=== PATIENT | female | born 1975 | race Caucasian/White ===

== ENCOUNTER 2017-09-14 17:59 | Emergency (ER) | payer OTHER ==
[2017-09-14 18:09] VITALS: TEMP 95
[2017-09-14] MEDS ORDERED: LORazepam 2 MG/ML INJ IV STA (18:30)
--- NOTE | 2017-09-14 18:41 | ED ---
General Adult HPI - General Chief complaint: Recheck/Abnormal Lab/Rx Stated complaint: involuntary movement, difficulty seeing Source: patient, EMS Mode of arrival: wheelchair Limitations: no limitations - History of Present Illness Initial comments: Patient is a 42-year-old female that presents for rhythmic type convulsions on her upper body. Patient states that she has a history of bipolar disorder and that approximates 78 years ago the same thing happened and she was seen at [facility]. They told her that this was nonepileptic seizures secondary to PTSD. She stopped all her medications which included Lamictal Lexapro and the symptoms went away. She states that the symptoms today started 1 hour prior to presentation in that she denies any pain including chest pain, shortness of breath, abdominal pain and also denies nausea/vomiting/diarrhea. She also denies any neurologic symptoms including headache, blurry vision or numbness or weakness. - Related Data Home Medications Medication Instructions Recorded Confirmed Acetaminophen/Diphenhydramine 1 tab PO HS PRN 09/14/17 09/14/17 [Tylenol PM 500-25mg] Allergies Allergy/AdvReac Type Severity Reaction Status Date / Time No Known Allergies Allergy Verified 09/14/17 18:59 Review of Systems ROS Statement: Those systems with pertinent positive or pertinent negative responses have been documented in the HPI. Constitutional: Negative for chills, fatigue and fever. HENT: Negative for congestion. Respiratory: Negative for chest tightness, shortness of breath and wheezing. Cardiovascular: Negative for chest pain and palpitations. Gastrointestinal: Negative for abdominal pain. Negative for abdominal distention , diarrhea, nausea and vomiting. Genitourinary: Negative for dysuria. Musculoskeletal: Negative for back pain, neck pain and neck stiffness. Skin: Negative for color change. Neurological: Negative for dizziness, speech difficulty, weakness and light- headedness. Positive for rhythmic type movements of her upper extremities and torso Psychiatric/Behavioral: Negative for agitation and confusion. The patient is not nervous/anxious. ROS Other: All systems not noted in ROS Statement are negative. Past Medical History Past Medical History: No Reported History History of Any Multi-Drug Resistant Organisms: None Reported Past Surgical History: Section Additional Past Surgical History / Comment(s): LAP BAND-2009 Past Anesthesia/Blood Transfusion Reactions: No Reported Reaction Past Psychological History: Bipolar Smoking Status: Never smoker Past Alcohol Use History: None Reported Past Drug Use History: None Reported - Past Family History Mother Family Medical History: Hypertension Brother(s) Family Medical History: Cancer, Diabetes Mellitus Additional Family Medical History / Comment(s): HEART DISEASE General Exam - General Exam Comments Initial Comments: Physical Exam Constitutional: Pt is oriented to person, place, and time. Pt appears well- developed and well-nourished. No distress. HENT: Head: Normocephalic and atraumatic. Eyes: EOM are normal. Neck: Normal range of motion. Neck supple. Cardiovascular: Normal rate, regular rhythm, S1 normal, S2 normal and normal heart sounds. Exam reveals no gallop and no friction rub. No murmur heard. Pulmonary/Chest: Effort normal and breath sounds normal. No tachypnea and no bradypnea. No respiratory distress. No wheezes or rales noted. Abdominal: Soft. Bowel sounds are normal. Pt exhibits no shifting dullness, no distension, no pulsatile liver, no fluid wave, no abdominal bruit and no ascites. There is no tenderness. There is no rigidity, no rebound, no guarding, no tenderness at McBurney's point and negative Ramsey's sign. Musculoskeletal: Normal range of motion. Neurological: Pt is alert and oriented to person, place, and time. No cranial nerve deficit. Patient has rhythmic flexion and extension type movements of her abdomen, torso and head and neck. Patient is alert and oriented and able to discuss fully her symptoms Skin: Skin is warm and dry. No rash noted. Pt is not diaphoretic. No erythema. No pallor. Psychiatric: Pt has a normal mood and affect. Pt behavior is normal. Thought content normal. Limitations: no limitations Course Vital Signs 09/14/17 09/14/17 18:04 19:10 Temperature 95 F L Pulse Rate 78 76 Respiratory 20 16 Rate Blood Pressure 131/85 O2 Sat by Pulse 97 96 Oximetry EKG Findings - EKG Comments: EKG Findings:: EKG showed normal sinus rhythm with a heart rate 72, LA interval 150, QRS 88, QTC 435 Medical Decision Making - Medical Decision Making Electrolytes showed no evidence of significant derangements and urinalysis was also negative for infection or . Patient was given 2 mg of Ativan and the symptoms subsided within 10-15 minutes and observed in the emergency department for approximately 2 hours and did not have any further symptoms..It was explained that while there does not appear to be an emergent process, the etiology of the symptoms are still unclear but possibly related to prior diagnosed epilepsy and may need further workup as an outpatient if symptoms continue. Explained all labs and diagnostic test results and that we will discharge the patient home and patient is to follow up with PCP in 1-2 days and return to the ED if symptoms worsen. Pt is agreeable to plan. - Lab Data Result diagrams: 09/14/17 18:30 09/14/17 18:30 Lab Results 09/14/17 09/14/17 09/14/17 Range/Units 18:30 18:30 19:10 WBC 11.8 H (3.8-10.6) k/uL RBC 4.38 (3.80-5.40) m/uL Hgb 13.3 (11.4-16.0) gm/dL Hct 41.0 (34.0-46.0) % MCV 93.6 (80.0-100.0) fL MCH 30.5 (25.0-35.0) pg MCHC 32.5 (31.0-37.0) g/dL RDW 12.4 (11.5-15.5) % Plt Count 389 (150-450) k/uL Neutrophils % 60 % Lymphocytes % 34 % Monocytes % 4 % Eosinophils % 1 % Basophils % 1 % Neutrophils # 7.1 (1.3-7.7) k/uL Lymphocytes # 3.9 (1.0-4.8) k/uL Monocytes # 0.4 (0-1.0) k/uL Eosinophils # 0.2 (0-0.7) k/uL Basophils # 0.1 (0-0.2) k/uL Sodium 143 (137-145) mmol/L Potassium 4.4 (3.5-5.1) mmol/L Chloride 106 (98-107) mmol/L Carbon Dioxide 23 (22-30) mmol/L Anion Gap 14 mmol/L BUN 11 (7-17) mg/dL Creatinine 0.80 (0.52-1.04) mg/dL Est GFR (MDRD) Af Amer >60 (>60 ml/min/1.73 sqM) Est GFR (MDRD) Non-Af >60 (>60 ml/min/1.73 sqM) Glucose 84 (74-99) mg/dL Plasma Lactic Acid Naeem 0.9 (0.7-2.0) mmol/L Calcium 9.6 (8.4-10.2) mg/dL Magnesium 1.9 (1.6-2.3) mg/dL Total Bilirubin 0.5 (0.2-1.3) mg/dL AST 22 (14-36) U/L ALT 29 (9-52) U/L Alkaline Phosphatase 50 (38-126) U/L Creatine Kinase 72 (30-135) U/L Total Protein 7.4 (6.3-8.2) g/dL Albumin 4.2 (3.5-5.0) g/dL Urine Color Urine Appearance (Clear) Urine pH (5.0-8.0) Ur Specific [place] (1.001-1.035) Urine Protein (Negative) Urine Glucose (UA) (Negative) Urine Ketones (Negative) Urine Blood (Negative) Urine Nitrite (Negative) Urine Bilirubin (Negative) Urine Urobilinogen (<2.0) mg/dL Ur Leukocyte Esterase (Negative) Urine RBC (0-5) /hpf Urine WBC (0-5) /hpf Hyaline Casts (0-2) /lpf Granular Casts (0) /lpf Urine Mucus (None) /hpf Urine HCG, Qual (Not Detectd) Urine Opiates Screen (NotDetected) Ur Oxycodone Screen (NotDetected) Urine Methadone Screen (NotDetected) Ur Propoxyphene Screen (NotDetected) Ur Barbiturates Screen (NotDetected) U Tricyclic Antidepress (NotDetected) Ur Phencyclidine Scrn (NotDetected) Ur Amphetamines Screen (NotDetected) U Methamphetamines Scrn (NotDetected) U Benzodiazepines Scrn (NotDetected) Urine Cocaine Screen (NotDetected) U Marijuana (THC) Screen (NotDetected) 09/14/17 09/14/17 Range/Units 20:38 20:38 WBC (3.8-10.6) k/uL RBC (3.80-5.40) m/uL Hgb (11.4-16.0) gm/dL Hct (34.0-46.0) % MCV (80.0-100.0) fL MCH (25.0-35.0) pg MCHC (31.0-37.0) g/dL RDW (11.5-15.5) % Plt Count (150-450) k/uL Neutrophils % % Lymphocytes % % Monocytes % % Eosinophils % % Basophils % % Neutrophils # (1.3-7.7) k/uL Lymphocytes # (1.0-4.8) k/uL Monocytes # (0-1.0) k/uL Eosinophils # (0-0.7) k/uL Basophils # (0-0.2) k/uL Sodium (137-145) mmol/L Potassium (3.5-5.1) mmol/L Chloride (98-107) mmol/L Carbon Dioxide (22-30) mmol/L Anion Gap mmol/L BUN (7-17) mg/dL Creatinine (0.52-1.04) mg/dL Est GFR (MDRD) Af Amer (>60 ml/min/1.73 sqM) Est GFR (MDRD) Non-Af (>60 ml/min/1.73 sqM) Glucose (74-99) mg/dL Plasma Lactic Acid Naeem (0.7-2.0) mmol/L Calcium (8.4-10.2) mg/dL Magnesium (1.6-2.3) mg/dL Total Bilirubin (0.2-1.3) mg/dL AST (14-36) U/L ALT (9-52) U/L Alkaline Phosphatase (38-126) U/L Creatine Kinase (30-135) U/L Total Protein (6.3-8.2) g/dL Albumin (3.5-5.0) g/dL Urine Color Yellow Urine Appearance Clear (Clear) Urine pH 6.0 (5.0-8.0) Ur Specific [place] 1.020 (1.001-1.035) Urine Protein 2+ H (Negative) Urine Glucose (UA) Negative (Negative) Urine Ketones 3+ H (Negative) Urine Blood Small H (Negative) Urine Nitrite Negative (Negative) Urine Bilirubin Negative (Negative) Urine Urobilinogen <2.0 (<2.0) mg/dL Ur Leukocyte Esterase Negative (Negative) Urine RBC <1 (0-5) /hpf Urine WBC 1 (0-5) /hpf Hyaline Casts 14 H (0-2) /lpf Granular Casts 4 (0) /lpf Urine Mucus Occasional H (None) /hpf Urine HCG, Qual Not Detected (Not Detectd) Urine Opiates Screen Not Detected (NotDetected) Ur Oxycodone Screen Not Detected (NotDetected) Urine Methadone Screen Not Detected (NotDetected) Ur Propoxyphene Screen Not Detected (NotDetected) Ur Barbiturates Screen Not Detected (NotDetected) U Tricyclic Antidepress Not Detected (NotDetected) Ur Phencyclidine Scrn Not Detected (NotDetected) Ur Amphetamines Screen Not Detected (NotDetected) U Methamphetamines Scrn Not Detected (NotDetected) U Benzodiazepines Scrn Detected H (NotDetected) Urine Cocaine Screen Not Detected (NotDetected) U Marijuana (THC) Screen Not Detected (NotDetected) Disposition Clinical Impression: Chorea Disposition: HOME SELF-CARE Condition: Good Instructions: Epilepsy (ED) Referrals: None,Stated [Primary Care Provider] - 1-2 days Time of Disposition: 21:43
[2017-09-14 19:12] VITALS: PULSE 76; RESP 16
[2017-09-14 19:17] LABS: Basophils # (A) 0.1 k/uL (0-0.2); Basophils % (A) 1 %; Eosinophils # (A) 0.2 k/uL (0-0.7); Eosinophils % (A) 1 %; HGB 13.3 gm/dL (11.4-16.0); Lymphocytes # (A) 3.9 k/uL (1.0-4.8); Lymphocytes % (A) 34 %; MCH 30.5 pg (25.0-35.0); MCHC 32.5 g/dL (31.0-37.0); MCV 93.6 fL (80.0-100.0); Mean Platelet Volume 7.6; Monocytes # (A) 0.4 k/uL (0-1.0); Monocytes % (A) 4 %; Neutrophils # (A) 7.1 k/uL (1.3-7.7); Neutrophils % (A) 60 %; Platelet Count 389 k/uL (150-450); RBC 4.38 m/uL (3.80-5.40); RDW 12.4 % (11.5-15.5); WBC 11.8 k/uL (3.8-10.6)
[2017-09-14 19:37] LABS: ALT 29 U/L (9-52); AST 22 U/L (14-36); Albumin 4.2 g/dL (3.5-5.0); Alkaline Phosphatase 50 U/L (38-126); Anion Gap 14 mmol/L; Blood Urea Nitrogen 11 mg/dL (7-17); Calcium 9.6 mg/dL (8.4-10.2); Carbon Dioxide 23 mmol/L (22-30); Chloride 106 mmol/L (98-107); Creatine Kinase 72 U/L (30-135); Glucose 84 mg/dL (74-99); Magnesium 1.9 mg/dL (1.6-2.3); Potassium 4.4 mmol/L (3.5-5.1); Sodium 143 mmol/L (137-145); Total Bilirubin 0.5 mg/dL (0.2-1.3); Total Protein 7.4 g/dL (6.3-8.2)
[2017-09-14 20:58] LABS: Appearance,Urine Clear (Clear); Bilirubin,Urine Negative (Negative); Blood,Urine Small (Negative); Color,Urine Yellow; Glucose,Urine (UA) Negative (Negative); Granular Casts,Urine 4 /lpf (0); Hyaline Casts,Urine 14 /lpf (0-2); Ketones,Urine 3+ (Negative); Leukocyte Esterase,Urine Negative (Negative); Mucus,Urine Occasional /hpf; Nitrite,Urine Negative (Negative); Protein,Urine 2+ (Negative); RBC,Urine <1 /hpf (0-5); Urobilinogen,Urine <2.0 mg/dL (<2.0); WBC,Urine 1 /hpf (0-5)
[2017-09-14 21:04] LABS: Amphetamine Screen,Urine Not Detected (NotDetected); Barbiturate Screen,Urine Not Detected (NotDetected); Benzodiazepines Screen,Urine Detected (NotDetected); Cocaine Screen,Urine Not Detected (NotDetected); Methadone Screen, Urine Not Detected (NotDetected); Opiate Screen,Urine Not Detected (NotDetected); Oxycodone Screen, Urine Not Detected (NotDetected); Phencyclidine Screen,Urine Not Detected (NotDetected); Tricyclic Antidepressant,Urine Not Detected (NotDetected); Urn Cannabinoid Scrn Not Detected (NotDetected)
[2017-09-14 22:06] VITALS: BP 139/95
== END 2017-09-14 22:05 | disposition home or self-care (01) ==
LOC: EC 17:59
DX: G25.5 Other chorea (principal)
CPT/HCPCS: 36415; 93005; 80053; 82550; 83605; 83735; 85025; 81001; 81025; 80306; 99284; 96374; J2060

== ENCOUNTER → 2018-03-25 | Outpatient (CLI) | payer OTHER ==
[2018-03-25 14:33] VITALS: BP 143/102; PULSE 80; TEMP 98.2; BMI 30.1
--- NOTE | 2018-03-25 23:07 | P.BASOAP ---
Subjective Progress Note Date: 03/25/18 Principal diagnosis: Morbid obesity Patient here to discuss band removal. Patient states she has episodes of frequent vomiting. She thought that her band was emptied at this time. Mild discomfort at the port site. She recently has lost 50 pounds but that was on a ketone diet. The most weight she has lost with her lap band was approximately 30 pounds. She is not interested in conversion. Only mild heartburn symptoms. Objective - Vital Signs Vital signs: Vital Signs Temp 98.2 F 03/25/18 14:30 Pulse 80 03/25/18 14:30 Resp BP 143/102 03/25/18 14:30 Pulse Ox Intake & Output 03/25/18 03/25/18 03/26/18 06:59 18:59 06:59 Weight 79.651 kg - Exam Abdomen: Soft, nontender, nondistended Assessment/Plan (1) Morbid obesity Narrative/Plan: Options discussed with the patient. Will loosen the patient's lap band at this time. Will tentatively plan band removal in the near future. The patient's lap band port was palpated. The site was aseptically prepped. The Tate needle was advanced into the port. Aspiration took place. A total of 2 ml of fluid was evacuated. Pressure was held and a sterile dressing was applied. Plan: Date: 03/25/18 Initial Weight: Initial BMI: Current Weight: 79.651 kg Current BMI: 30.1 Type of Surgery: Total Volume in Band: 1 Previous Volume: Volume Removed: 2 Volume Added: Band Size:
== END | disposition home or self-care (01) ==
LOC: BARWHC3 13:33
PROVIDERS: ATTEND Surgery
DX: E66.01 Morbid (severe) obesity due to excess calories (principal); Z68.30 Body mass index [BMI] 30.0-30.9, adult
CPT/HCPCS: 99212

== ENCOUNTER 2018-04-30 06:51 | Day surgery (SDC) | payer OTHER ==
[2018-04-24 09:19] VITALS: BMI 27.2
--- NOTE | 2018-04-29 17:31 | P.GSHP ---
History of Present Illness H&P Date: 04/29/18 Chief Complaint: Band intolerance Patient here today for laparoscopic lap band removal. Patient is had problems with frequent vomiting and discomfort at the lap band port site. Patient has mild reflux symptoms as well. At the time of her recent office visit her band was emptied of 2 mL of fluid. Past Medical History Past Medical History: No Reported History Additional Past Medical History / Comment(s): STATES HX OF 2 EPISODES OF INVOLUNTARY MOVEMENTS ALL OVER (2010 & 2017)- TOLD POSSIBLE CHOREA., HAS LAP BAND, EPISODES OF VOMITING. History of Any Multi-Drug Resistant Organisms: None Reported Past Surgical History: Section Additional Past Surgical History / Comment(s): LAP BAND-2008 Past Anesthesia/Blood Transfusion Reactions: No Reported Reaction Past Psychological History: Bipolar Additional Psychological History / Comment(s): NO MEDS Smoking Status: Never smoker Past Alcohol Use History: None Reported Past Drug Use History: None Reported - Past Family History Mother Family Medical History: Hypertension Brother(s) Family Medical History: Cancer, Diabetes Mellitus Additional Family Medical History / Comment(s): HEART DISEASE Father Family Medical History: Cancer Additional Family Medical History / Comment(s): SKIN CANCER Medications and Allergies Home Medications Medication Instructions Recorded Confirmed Type Acetaminophen/Diphenhydramine 1 tab PO HS PRN 04/24/18 04/24/18 History [Tylenol PM 500-25mg] Allergies Allergy/AdvReac Type Severity Reaction Status Date / Time No Known Allergies Allergy Verified 04/24/18 09:07 Surgical - Exam Physical exam: General: Well-developed, well-nourished HEENT: Normocephalic, sclerae nonicteric Abdomen: Mild tenderness at port site, nondistended Extremities: No edema Neuro: Alert and oriented Assessment and Plan (1) Morbid obesity Narrative/Plan: Will proceed with laparoscopic lap band removal. Risks of bleeding, infection, persistent vomiting, reflux, weight gain were discussed. She understands and wishes to proceed. Status: Acute Code(s): E66.01 - MORBID (SEVERE) OBESITY DUE TO EXCESS CALORIES SNOMED Code(s): 681258442
[~2018-04-30 06:51] MED LIST: DEXAMETHASONE SOD PHOSPHATE 10 MG/ML 1 ML VIAL IV ONE; HEPARIN SODIUM,PORCINE 5,000 UNIT/ML 1 ML VIAL SQ ONE; LACTATED RINGERS 1,000 ML IV SCH; MORPHINE SULFATE 2 MG/ML SYRINGE IV PRN; ONDANSETRON 4 MG/2 ML VIAL IVP ONE; ONDANSETRON 4 MG/2 ML VIAL IVP PRN; ceFAZolin IN SWFI 2 GM/20 ML SYRINGE IVP ONE
[2018-04-30] MEDS ORDERED: LIDOCAINE 1% 20 ML VIAL (10MG/ML) FOR IV START INTRADERMA ONE (07:39)
[2018-04-30] MEDS ORDERED: GLYCOPYRROLATE 0.2 MG/ML 2 ML VIAL ONE (08:03)
[2018-04-30] MEDS ORDERED: BUPIVACAIN-EPI 0.25%-1:200,000 30 ML VIAL SQ ONE ×2 (08:03)
[2018-04-30] MEDS ORDERED: PROPOFOL 10 MG/ML 20 ML VIAL IV ONE (08:03)
[2018-04-30] MEDS ORDERED: fentaNYL (PF) 50 MCG/ML 2 ML AMP ONE (08:03)
[2018-04-30] MEDS ORDERED: NEOSTIGMINE 1 MG/ML 10 ML VIAL ONE (08:03)
[2018-04-30] MEDS ORDERED: ROCURONIUM BROMIDE 10 MG/ML 10 ML VIAL IV ONE (08:03)
[2018-04-30] MEDS ORDERED: LIDOCAINE 1% INJ 10MG/ML (20 ML MDV) ONE (08:03)
[2018-04-30] MEDS ORDERED: MIDAZOLAM 2 MG/2 ML VIAL ONE (08:03)
[2018-04-30] MEDS ORDERED: KETOROLAC 30 MG/ML 1 ML VIAL ONE (08:03)
[2018-04-30] MEDS ORDERED: NALOXONE 0.4 MG/ML 1 ML VIAL IV PRN (09:12)
[2018-04-30] MEDS ORDERED: HYDROcodone/APAP 5-325MG 1 EACH TAB PO PRN (09:12)
--- NOTE | 2018-04-30 09:14 | P.OP ---
Date of Procedure: 04/30/18 Procedure(s) Performed: PREOPERATIVE DIAGNOSIS: Band intolerance/abdominal pain POSTOPERATIVE DIAGNOSIS: Same PROCEDURE: Laparoscopic lap band removal SURGEON: Deborah EBL: Minimal ANESTHESIA: General COMPLICATIONS: None OPERATIVE PROCEDURE: The patient was brought and placed on the operating room table in the supine position. The patient was placed under general anesthesia at that time. The patient was then placed in lithotomy. The abdomen was prepped and draped in the usual sterile fashion. The previous port incision was localized and then incised using a scalpel. The port was easily excised using electrocautery. Entrance into the perineal cavity occurred using a 5 mm optical trocar through the old trocar entrance site. Insufflation took place to 15 mmHg. A right subxiphoid 5 mm trocar was placed. This was then removed and the medium Alejandra hook was used to elevate the left lobe of the liver anteriorly. An additional 5 mm trocar was placed under direct visualization in the left lateral upper quadrant. The original 5 mm trocar was switched to a 15 mm trocar. A additional 5 mm trocar was placed in the right upper quadrant under direct dilatation. There were adhesions to the band in the buckle that were lysed using electrocautery. The band was then removed from its retrogastric location in one piece without difficulty. This was then removed from the 15 mm trocar site without difficulty. The stomach itself was inspected and revealed no evidence of erosion or prolapse. The trochars were removed. The fascia at the 15 mm site was closed using a Ladarius-Alondra 0 Vicryl stitch. The subcutaneous tissues at the port site was closed using a 3- 0 Vicryl suture. The skin at all 4 incision sites were closed using 4-0 Monocryl sutures. Steri-Strips and sterile dressings were then applied. DISPOSITION: Stable to recovery room
[2018-04-30] MEDS: HYDROmorphone 0.5 MG/0.5 ML SYRINGE IVP PRN ×4 (09:23→10:06)
[2018-04-30] MEDS ORDERED: diphenhydrAMINE 50 MG/ML 1 ML VIAL IVP ONE (09:24)
[2018-04-30 09:32] VITALS: TEMP 97.5
[2018-04-30] MEDS: fentaNYL (PF) 50 MCG/ML 2 ML AMP IVP ONE ×2 (09:38→09:43)
[2018-04-30 09:40] VITALS: RESP 16
[2018-04-30] MEDS ORDERED: SODIUM CHLORIDE 0.9% 1,000 ML IV ONE (09:50)
[2018-04-30 11:03] VITALS: BP 157/80; PULSE 54
== END 2018-04-30 11:36 | disposition home or self-care (01) ==
LOC: OR 06:51
PROVIDERS: ATTEND Surgery
DX: T85.9XXA Unspecified complication of internal prosthetic device, implant and graft, initial encounter (principal); E66.01 Morbid (severe) obesity due to excess calories; Z68.27 Body mass index [BMI] 27.0-27.9, adult
CPT/HCPCS: 81025; 43774; J2250; J1200; J1644; J1100; J2710; J2405; J2001; J3010; J1885; J2704; J1170; J0690

== ENCOUNTER → 2018-12-10 | Outpatient (CLI) | payer BC, OTHER ==
--- NOTE | 2018-12-10 13:01 | EST ---
EXERCISE STRESS AGE: 43 SEX: F HT: 67" WT: 170 PROTOCOL: Kedar Stress Test STAGE: 3 DURATION OF EXERCISE: 9:00 HEART RATE REST: 80 BLOOD PRESSURE REST: 135/88 MAXIMUM HEART RATE ACHIEVED: 160 MAXIMUM BLOOD PRESSURE: 180/90 85% MPHR: 151 100% MPHR: 171 METS: 10.1 INDICATIONS: Chest pain. CLINICAL INFORMATION: Patient was exercised for a total period of 9 minutes a peak heart rate of 160 was achieved. Maximum blood pressure 180/90 mmHg was noted. Resting EKG shows normal sinus rhythm with normal [place] interval and QRS duration and normal ST-T waves. During exercise. J-point depression with upsloping ST segments were noted. Patient did not complain of any chest pain during the test. FINAL IMPRESSION: 1. This exercise test is not suggestive of ischemia. 2. Patient's exercise tolerance is normal. 3. No dysrhythmias are noted. MMODL / IJN: [id number] /
== END | disposition home or self-care (01) ==
LOC: RADNMMAIN 08:42
PROVIDERS: ATTEND Internal Medicine
DX: R07.9 Chest pain, unspecified (principal)
CPT/HCPCS: 93017

== ENCOUNTER 2019-09-02 15:36 | Emergency (ER) | payer BC, OTHER ==
[2019-09-02 15:50] VITALS: RESP 18
[2019-09-02] MEDS ORDERED: SODIUM CHLORIDE 0.9% 1,000 ML IV STA (16:22)
[2019-09-02 16:33] LABS: Glucose,Whole Blood 82 mg/dL (75-99)
[2019-09-02 16:37] LABS: Basophils # (A) 0.1 k/uL (0-0.2); Basophils % (A) 1 %; Eosinophils # (A) 0.3 k/uL (0-0.7); Eosinophils % (A) 3 %; HCT 39.2 % (34.0-46.0); HGB 13.1 gm/dL (11.4-16.0); Lymphocytes # (A) 3.1 k/uL (1.0-4.8); Lymphocytes % (A) 35 %; MCH 31.4 pg (25.0-35.0); MCHC 33.3 g/dL (31.0-37.0); MCV 94.2 fL (80.0-100.0); Mean Platelet Volume 7.6; Monocytes # (A) 0.4 k/uL (0-1.0); Monocytes % (A) 4 %; Neutrophils # (A) 4.9 k/uL (1.3-7.7); Neutrophils % (A) 56 %; Platelet Count 334 k/uL (150-450); RBC 4.16 m/uL (3.80-5.40); RDW 12.1 % (11.5-15.5); WBC 8.8 k/uL (3.8-10.6)
--- NOTE | 2019-09-02 16:40 | ED ---
Female Urogenital HPI - General Chief complaint: Vaginal Bleeding Stated complaint: Vaginal bleeding Time Seen by Provider: 09/02/19 15:59 Source: family Mode of arrival: ambulatory Limitations: no limitations - History of Present Illness Initial comments: Patient is a 44-year-old female presenting to emergency Department with complaints of abnormal vaginal bleeding for 2 weeks. Patient states she thought she started her normal cycle 2 weeks ago that her periods seem to be food server than normal. Patient states after about a week her period began to be heavier but is now bright red blood. Patient states she has been wearing a tampon and a pad and still having to change every few hours. Patient also admits to emotional changes the last 2 months that she has been seeing Dr. Vivas for. She did started bipolar medication 2 months ago, no other changes in dosing. She denies suicidal or homicidal thoughts today. Patient denies any recent fever, chills, chest pain, short of breath. She does admit to mild nausea and lower abdominalpain as well as some tingling in her nose and hands. She is also complaining of a headache and lightheadedness that started today. Patient admits to history of LAP-BAND as well as lap band removal, one with a fibroid removal, no other abdominal surgeries. Denies history of heart disease. She has no other complaints at this time. Upon arrival to the ER, her vital signs are stable. Last Menstrual Period: 08/26/19 - Related Data Home Medications Medication Instructions Recorded Confirmed Acetaminophen/Diphenhydramine 1 tab PO HS PRN 04/24/18 04/30/18 [Tylenol PM 500-25mg] Previous Rx's Medication Instructions Recorded Hydrocodone/Acetaminophen [[place] 1 - 2 each PO Q4HR PRN #10 tab 04/30/18 5-325] Allergies Allergy/AdvReac Type Severity Reaction Status Date / Time No Known Allergies Allergy Verified 09/02/19 15:50 Review of Systems ROS Statement: Those systems with pertinent positive or pertinent negative responses have been documented in the HPI. ROS Other: All systems not noted in ROS Statement are negative. Past Medical History Past Medical History: No Reported History Additional Past Medical History / Comment(s): STATES HX OF 2 EPISODES OF INVOLUNTARY MOVEMENTS ALL OVER (2010 & 2018)- TOLD POSSIBLE CHOREA., HAS LAP BAND, EPISODES OF VOMITING. History of Any Multi-Drug Resistant Organisms: None Reported Past Surgical History: Bariatric Surgery, Section Additional Past Surgical History / Comment(s): LAP BAND-2009 Past Anesthesia/Blood Transfusion Reactions: No Reported Reaction Past Psychological History: Bipolar Smoking Status: Never smoker Past Alcohol Use History: None Reported Past Drug Use History: None Reported - Past Family History Mother Family Medical History: Hypertension Brother(s) Family Medical History: Cancer, Diabetes Mellitus Additional Family Medical History / Comment(s): HEART DISEASE Father Family Medical History: Cancer Additional Family Medical History / Comment(s): SKIN CANCER General Exam - General Exam Comments Initial Comments: GENERAL: Well-appearing, well-nourished and in no acute distress. HEAD: Atraumatic, normocephalic. EYES: Pupils equal round and reactive to light, extraocular movements intact, sclera anicteric, conjunctiva are normal. ENT: TMs normal, nares patent, oropharynx clear without exudates. Moist mucous membranes. NECK: Normal range of motion, supple without lymphadenopathy or JVD. LUNGS: Breath sounds clear to auscultation bilaterally and equal. No wheezes rales or rhonchi. HEART: Regular rate and rhythm without murmurs, rubs or gallops. ABDOMEN: Soft, nontender, normoactive bowel sounds. No guarding, no rebound. No masses appreciated. : Declined. EXTREMITIES: Normal range of motion, no pitting or edema. No clubbing or cyanosis. NEUROLOGICAL: Cranial nerves II through XII grossly intact. Normal speech, normal gait. PSYCH: Normal mood, normal affect. SKIN: Warm, Dry, normal turgor, no rashes or lesions noted. Limitations: no limitations Course Vital Signs 09/02/19 09/02/19 09/02/19 15:46 16:30 17:00 Temperature 98.1 F Pulse Rate 67 79 76 Respiratory 18 18 18 Rate Blood Pressure 141/92 165/95 137/92 O2 Sat by Pulse 100 100 100 Oximetry Medical Decision Making - Medical Decision Making Patient is a 44-year-old female presenting with abnormal vaginal bleeding for 2 weeks and lower abdominal discomfort as well as lightheadedness. Vital signs are normal, EKG is normal. Lab work shows no acute abnormalities, glucose is normal. Urine shows blood, no signs of infection. Patient is not . Ultrasound shows a right ovarian cyst, no evidence of ovarian torsion. There is a small fibroid as well. No other acute findings. Patient given fluids and reports mild improvement in symptoms. I discussed these findings with the patient. Patient will follow up with her TOOL ROOM SUPERVISOR, Dr. Koenig. She will continue with Motrin as needed for pain. She is agreement with this plan of c are. Return parameters were discussed with the patient she verbalized understanding. Case discussed with Dr. Rowley. - Lab Data Result diagrams: 09/02/19 16:00 09/02/19 16:00 Lab Results 09/02/19 09/02/19 09/02/19 Range/Units 16:00 16:00 16:00 WBC 8.8 (3.8-10.6) k/uL RBC 4.16 (3.80-5.40) m/uL Hgb 13.1 (11.4-16.0) gm/dL Hct 39.2 (34.0-46.0) % MCV 94.2 (80.0-100.0) fL MCH 31.4 (25.0-35.0) pg MCHC 33.3 (31.0-37.0) g/dL RDW 12.1 (11.5-15.5) % Plt Count 334 (150-450) k/uL Neutrophils % 56 % Lymphocytes % 35 % Monocytes % 4 % Eosinophils % 3 % Basophils % 1 % Neutrophils # 4.9 (1.3-7.7) k/uL Lymphocytes # 3.1 (1.0-4.8) k/uL Monocytes # 0.4 (0-1.0) k/uL Eosinophils # 0.3 (0-0.7) k/uL Basophils # 0.1 (0-0.2) k/uL PT 9.6 (9.0-12.0) sec INR 0.9 (<1.2) APTT 22.2 (22.0-30.0) sec Sodium 140 (137-145) mmol/L Potassium 4.2 (3.5-5.1) mmol/L Chloride 105 (98-107) mmol/L Carbon Dioxide 25 (22-30) mmol/L Anion Gap 10 mmol/L BUN 17 (7-17) mg/dL Creatinine 0.65 (0.52-1.04) mg/dL Est GFR (CKD-EPI)AfAm >90 (>60 ml/min/1.73 sqM) Est GFR (CKD-EPI)NonAf >90 (>60 ml/min/1.73 sqM) Glucose 91 (74-99) mg/dL POC Glucose (mg/dL) (75-99) mg/dL POC Glu Cardiology Physician ID Calcium 9.3 (8.4-10.2) mg/dL Total Bilirubin 0.3 (0.2-1.3) mg/dL AST 31 (14-36) U/L ALT 26 (4-34) U/L Alkaline Phosphatase 63 (38-126) U/L Total Protein 7.4 (6.3-8.2) g/dL Albumin 4.2 (3.5-5.0) g/dL Urine Color Urine Appearance (Clear) Urine pH (5.0-8.0) Ur Specific [place] (1.001-1.035) Urine Protein (Negative) Urine Glucose (UA) (Negative) Urine Ketones (Negative) Urine Blood (Negative) Urine Nitrite (Negative) Urine Bilirubin (Negative) Urine Urobilinogen (<2.0) mg/dL Ur Leukocyte Esterase (Negative) Urine RBC (0-5) /hpf Urine WBC (0-5) /hpf Ur Squamous Epith Cells (0-4) /hpf Urine Bacteria (None) /hpf Urine Mucus (None) /hpf Urine HCG, Qual (Not Detectd) 09/02/19 09/02/19 09/02/19 Range/Units 16:32 18:00 18:00 WBC (3.8-10.6) k/uL RBC (3.80-5.40) m/uL Hgb (11.4-16.0) gm/dL Hct (34.0-46.0) % MCV (80.0-100.0) fL MCH (25.0-35.0) pg MCHC (31.0-37.0) g/dL RDW (11.5-15.5) % Plt Count (150-450) k/uL Neutrophils % % Lymphocytes % % Monocytes % % Eosinophils % % Basophils % % Neutrophils # (1.3-7.7) k/uL Lymphocytes # (1.0-4.8) k/uL Monocytes # (0-1.0) k/uL Eosinophils # (0-0.7) k/uL Basophils # (0-0.2) k/uL PT (9.0-12.0) sec INR (<1.2) APTT (22.0-30.0) sec Sodium (137-145) mmol/L Potassium (3.5-5.1) mmol/L Chloride (98-107) mmol/L Carbon Dioxide (22-30) mmol/L Anion Gap mmol/L BUN (7-17) mg/dL Creatinine (0.52-1.04) mg/dL Est GFR (CKD-EPI)AfAm (>60 ml/min/1.73 sqM) Est GFR (CKD-EPI)NonAf (>60 ml/min/1.73 sqM) Glucose (74-99) mg/dL POC Glucose (mg/dL) 82 (75-99) mg/dL POC Glu Cardiology Physician ID Nadia Sanabria Calcium (8.4-10.2) mg/dL Total Bilirubin (0.2-1.3) mg/dL AST (14-36) U/L ALT (4-34) U/L Alkaline Phosphatase (38-126) U/L Total Protein (6.3-8.2) g/dL Albumin (3.5-5.0) g/dL Urine Color Yellow Urine Appearance Clear (Clear) Urine pH 7.5 (5.0-8.0) Ur Specific [place] 1.017 (1.001-1.035) Urine Protein Negative (Negative) Urine Glucose (UA) Negative (Negative) Urine Ketones Negative (Negative) Urine Blood Large H (Negative) Urine Nitrite Negative (Negative) Urine Bilirubin Negative (Negative) Urine Urobilinogen <2.0 (<2.0) mg/dL Ur Leukocyte Esterase Negative (Negative) Urine RBC 34 H (0-5) /hpf Urine WBC 1 (0-5) /hpf Ur Squamous Epith Cells 5 H (0-4) /hpf Urine Bacteria Rare H (None) /hpf Urine Mucus Rare H (None) /hpf Urine HCG, Qual Not Detected (Not Detectd) - EKG Data EKG Comments: Ventricular rate 65, P a level CXXXVI, QTC 470. Normal sinus rhythm. Normal ECG. No acute ST segment changes. Disposition Clinical Impression: Dysfunctional uterine bleeding, Lightheadedness Disposition: HOME SELF-CARE Condition: Stable Instructions (If sedation given, give patient instructions): Dysmenorrhea (ED) Additional Instructions: Please return to the Emergency Department if symptoms worsen or any other concerns. Follow-up with TOOL ROOM SUPERVISOR, Dr. Koenig as discussed. Follow up with PCP as well. Is patient prescribed a controlled substance at d/c from ED?: No Referrals: Tamia Vivas MD [Primary Care Provider] - 1-2 days Richardson Koenig MD [STAFF PHYSICIAN] - 1-2 days
[2019-09-02 16:45] LABS: ALT 26 U/L (4-34); AST 31 U/L (14-36); African American GFR (CKD) >90 (>60 ml/min/1.73 sqM); Albumin 4.2 g/dL (3.5-5.0); Alkaline Phosphatase 63 U/L (38-126); Anion Gap 10 mmol/L; Blood Urea Nitrogen 17 mg/dL (7-17); Calcium 9.3 mg/dL (8.4-10.2); Carbon Dioxide 25 mmol/L (22-30); Chloride 105 mmol/L (98-107); Glucose 91 mg/dL (74-99); Non-African American GFR(CKD) >90 (>60 ml/min/1.73 sqM); Potassium 4.2 mmol/L (3.5-5.1); Sodium 140 mmol/L (137-145); Total Bilirubin 0.3 mg/dL (0.2-1.3); Total Protein 7.4 g/dL (6.3-8.2)
[2019-09-02 16:56] LABS: INR 0.9 (<1.2); Partial Thromboplastin Time 22.2 sec (22.0-30.0); Prothrombin Time 9.6 sec (9.0-12.0)
--- NOTE | 2019-09-02 17:36 | US ---
EXAMINATION TYPE: US transvaginal DATE OF EXAM: 09/02/2019 COMPARISON: NONE CLINICAL HISTORY: Abnormal vaginal bleeding. TECHNIQUE: Transvaginal (TV). Date of LMP: 08/20/19 EXAM MEASUREMENTS: Uterus: 9.2 x 4.9 x 6.8 cm Endometrial Stripe: 1.0 cm Right Ovary: 4.1 x 3.3 x 3.3 cm Left Ovary: 2.1 x 1.6 x 1.5 cm 1. Uterus: Anteverted, there appears to be a fibroid at the area of scar measuring 1.4 x 1 .3 x 1.5cm 2. Endometrium: heterogeneous, fluid within measuring 4mm 3. Right Ovary: cyst measuring 3.3 x 3.3 x 2.8cm 4. Left Ovary: wnl Spectral, color and waveform doppler imaging shows good arterial and venous flow within the ovaries ; there is no evidence for ovarian torsion. 5. Bilateral Adnexa: wnl 6. Posterior cul-de-sac: wnl IMPRESSION: There is a right ovarian cyst. No solid adnexal mass. No evidence of ovarian torsion. Min imal endometrial fluid.. There is some hypertrophy of the endometrium which measures overall 13 mm.
[2019-09-02] MEDS ORDERED: SODIUM CHLORIDE 0.9% 500 ML 500 ML IV STA (18:21)
[2019-09-02 18:43] LABS: Appearance,Urine Clear (Clear); Bacteria,Urine Rare /hpf; Bilirubin,Urine Negative (Negative); Blood,Urine Large (Negative); Color,Urine Yellow; Glucose,Urine (UA) Negative (Negative); Ketones,Urine Negative (Negative); Leukocyte Esterase,Urine Negative (Negative); Mucus,Urine Rare /hpf; Nitrite,Urine Negative (Negative); PH, Urine 7.5 (5.0-8.0); Protein,Urine Negative (Negative); RBC,Urine 34 /hpf (0-5); Specific Gravity,Urine 1.017 (1.001-1.035); Squamous Epithelial Cell,Urine 5 /hpf (0-4); Urobilinogen,Urine <2.0 mg/dL (<2.0); WBC,Urine 1 /hpf (0-5)
[2019-09-02 19:13] VITALS: BP 146/94; PULSE 65; TEMP 97.6
== END 2019-09-02 19:13 | disposition home or self-care (01) ==
LOC: EC 15:36
DX: N93.8 Other specified abnormal uterine and vaginal bleeding (principal); N83.201 Unspecified ovarian cyst, right side; F31.9 Bipolar disorder, unspecified; Z98.890 Other specified postprocedural states
CPT/HCPCS: 36415; 76830; 80053; 81001; 81025; 85025; 85610; 85730; 93005; 93975; 96360; 96361; 99284

== ENCOUNTER → 2019-09-23 | Outpatient (CLI) | payer BC ==
[2019-09-23 16:15] LABS: Estradiol 37.7 pg/mL; Luteinizing Hormone 4.8 mIU/mL
[2019-09-23 16:16] LABS: Follicle Stimulating Hormone 7.4 mIU/mL
== END | disposition home or self-care (01) ==
LOC: LABWHC1 09:31
PROVIDERS: ATTEND Internal Medicine
DX: G47.00 Insomnia, unspecified (principal); N95.9 Unspecified menopausal and perimenopausal disorder
CPT/HCPCS: 36415; 82670; 83001; 83002

== ENCOUNTER 2020-11-12 18:54 | Emergency (ER) | payer BC, OTHER ==
--- NOTE | 2020-11-12 20:26 | XR ---
EXAMINATION TYPE: XR chest 2V DATE OF EXAM: 11/12/2020 COMPARISON: 06/12/2017 HISTORY: Short of breath TECHNIQUE: 2 views FINDINGS: There is normal heart and mediastinum. There is some mild interstitial increased density in the mid and lower lung calderon. There is no definite pleural effusion. There are no hilar masses. IMPRESSION: New mild pulmonary interstitial infiltrates compared to old exam. Normal heart.
--- NOTE | 2020-11-12 20:50 | ED ---
General Adult HPI - General Chief complaint: Upper Respiratory Infection Stated complaint: sob/no taste/smell/cough/body aches Time Seen by Provider: 11/12/20 20:21 Source: patient Mode of arrival: ambulatory Limitations: no limitations - History of Present Illness Initial comments: 45-year-old female presenting to the emergency department with a chief complaint of cough, congestion, loss of taste a small. Patient reports his symptoms began about 2 days ago that started off with a nonproductive cough. She also reports generalized myalgias and fatigue. Patient also reports otalgia and a sore throat. She does report having fevers at home has been taking Tylenol. She does report occasional exertional dyspnea but denies any chest pain. Patient also reports loss of smell and taste for the past day. She is unaware of any specific exposure to a cold with patient. Patient states she is also very anxious to be in this hospital. She is not a smoker, no history of asthma or COPD. - Related Data Home Medications Medication Instructions Recorded Confirmed Acetaminophen/Diphenhydramine 1 tab PO HS PRN 04/24/18 04/30/18 [Tylenol PM 500-25mg] Previous Rx's Medication Instructions Recorded Hydrocodone/Acetaminophen [[place] 1 - 2 each PO Q4HR PRN #10 tab 04/30/18 5-325] Allergies Allergy/AdvReac Type Severity Reaction Status Date / Time No Known Allergies Allergy Verified 11/12/20 19:29 Review of Systems ROS Statement: Those systems with pertinent positive or pertinent negative responses have been documented in the HPI. ROS Other: All systems not noted in ROS Statement are negative. Past Medical History Past Medical History: No Reported History Additional Past Medical History / Comment(s): STATES HX OF 2 EPISODES OF INVOLUNTARY MOVEMENTS ALL OVER (2010 & 2017)- TOLD POSSIBLE CHOREA., HAS LAP BAND, EPISODES OF VOMITING. History of Any Multi-Drug Resistant Organisms: None Reported Past Surgical History: Bariatric Surgery, Section Additional Past Surgical History / Comment(s): LAP BAND-2008 Past Anesthesia/Blood Transfusion Reactions: No Reported Reaction Past Psychological History: Bipolar Smoking Status: Never smoker Past Alcohol Use History: None Reported Past Drug Use History: None Reported - Past Family History Mother Family Medical History: Hypertension Brother(s) Family Medical History: Cancer, Diabetes Mellitus Additional Family Medical History / Comment(s): HEART DISEASE Father Family Medical History: Cancer Additional Family Medical History / Comment(s): SKIN CANCER General Exam Limitations: no limitations General appearance: alert, in no apparent distress Head exam: Present: atraumatic, normocephalic, normal inspection Eye exam: Present: normal appearance, PERRL, EOMI Pupils: Present: normal accommodation ENT exam: Present: normal exam, normal oropharynx, mucous membranes moist, TM's normal bilaterally, normal external ear exam Neck exam: Present: normal inspection, full ROM. Absent: tenderness Respiratory exam: Present: normal lung sounds bilaterally (Nonproductive cough). Absent: respiratory distress, wheezes, rales, rhonchi, stridor, chest wall tenderness, accessory muscle use Cardiovascular Exam: Present: regular rate, normal rhythm, normal heart sounds. Absent: systolic murmur GI/Abdominal exam: Present: soft. Absent: distended, tenderness, guarding, rebound Extremities exam: Present: normal inspection, full ROM, normal capillary refill. Absent: tenderness, pedal edema, joint swelling Back exam: Present: normal inspection, full ROM. Absent: tenderness, CVA tenderness (R), CVA tenderness (L) Neurological exam: Present: alert, oriented X3, normal gait Psychiatric exam: Present: normal affect, normal mood Skin exam: Present: warm, dry, intact, normal color Course Vital Signs 11/12/20 11/12/20 19:23 20:43 Temperature 98.7 F Pulse Rate 100 Respiratory 28 H Rate Blood Pressure 180/106 O2 Sat by Pulse 100 Oximetry Medical Decision Making - Medical Decision Making 45-year-old female presents to the emergency department for cough, congestion and loss of taste and smell. On physical examination, patient does not appear to be in any respiratory distress. She is slightly anxious when evaluating. Patient was initially tachypneic due to her anxiety but this has improved. Chest x-ray reveals new mild pulmonary interstitial infiltrates compared to an old exam. She tested positive for Coumadin. I advised her to isolate. Take Tylenol for the fever. And advised to return to emergency department if her symptoms worsen. Case discussed with Dr Beatty - Lab Data Lab Results 11/12/20 Range/Units 19:32 Coronavirus (PCR) Detected A (Not Detectd) Disposition Clinical Impression: COVID-19 Disposition: HOME SELF-CARE Condition: Stable Instructions (If sedation given, give patient instructions): Coronavirus Disease 2019 (COVID-19) Additional Instructions: Please return to the Emergency Department if symptoms worsen or any other concerns. Is patient prescribed a controlled substance at d/c from ED?: No Referrals: Tamia Vivas MD [Primary Care Provider] - 1-2 days Time of Disposition: 21:19
[2020-11-12 21:19] VITALS: BP 140/100; PULSE 85; RESP 20; TEMP 99.9
== END 2020-11-12 21:20 | disposition home or self-care (01) ==
LOC: EC 18:54
DX: U07.1 COVID-19 (principal); F31.9 Bipolar disorder, unspecified
CPT/HCPCS: 71046; 87635; 99285

== ENCOUNTER → 2021-08-09 | Outpatient (CLI) | payer OTHER ==
--- NOTE | 2021-08-09 15:43 | US ---
EXAMINATION TYPE: US pelvic complete DATE OF EXAM: 08/09/2021 COMPARISON: US pelvis 2019 CLINICAL HISTORY: N94.6 DYSMENORRHEA. Abnormal uterine bleeding; patient states having cycles for 3 m onths straight for the past 2 years. Patient has had one and had a fibroid removed during c -section per patient. TECHNIQUE: Transabdominal (TA). Date of LMP: 07/20/2021 EXAM MEASUREMENTS: Uterus: 11.5 x 4.5 x 7.1 cm Endometrial Stripe: 0.31 cm Right Ovary: 2.6 x 2.6 x 2.8 cm Left Ovary: 2.1 x 1.7 x 2.1 cm 1. Uterus: Anteverted Possible fibroid seen, also seen previously; measuring 1.7 x 1.3 x 1.9 cm to day. 2. Endometrium: Appears wnl 3. Right Ovary: Appears wnl 4. Left Ovary: Appears wnl 5. Bilateral Adnexa: wnl 6. Posterior cul-de-sac: Small amount of fluid noted IMPRESSION: 1. Findings are most likely related to a 1.9 cm uterine fibroid. Correlation with MRI suggested.
--- NOTE | 2021-08-09 16:02 | XR ---
EXAM TYPE: LUMBAR SPINE X RAY SERIES COMPARISON: NONE HISTORY: Pain TECHNIQUE: 3 views are submitted. FINDINGS: Alignment is anatomic. The pedicles are intact. The transverse processes are intact. There is no s pondylolisthesis. There is facet arthropathy and degenerative disc disease L4-5 and L5-S1. There is a large gallstone. IMPRESSION: 1. Large gallstone. 2. Degenerative disc disease and facet arthropathy L4-5 and L5-S1.
== END | disposition home or self-care (01) ==
LOC: RADUSWWP 14:57
PROVIDERS: ATTEND Internal Medicine
DX: M47.897 Other spondylosis, lumbosacral region (principal); N94.6 Dysmenorrhea, unspecified; K80.80 Other cholelithiasis without obstruction
CPT/HCPCS: 72100; 76856

== ENCOUNTER → 2021-08-16 | Outpatient (CLI) | payer OTHER ==
--- NOTE | 2021-08-17 05:13 | MR ---
EXAMINATION TYPE: MR lumbar spine wo con DATE OF EXAM: 08/16/2021 COMPARISON: None HISTORY: LBP, radiates down left leg. Multiplanar multiecho imaging of the lumbar spine without contrast. Lumbar vertebrae have normal alignment. Disc spaces are fairly normal. There is no spinal stenosis. L umbar nerve roots appear fairly well maintained. There is no compression fracture. I see no focal bon e destruction. There is no lumbar paraspinal mass. The sacroiliac joints appear intact. There is some mild decreased signal and disc space narrowing at L4-5 and L5-S1. There is small posterior disc bul ge at L5-S1. IMPRESSION: Minor degenerative disc changes in the lower lumbar spine. No fracture. No spinal stenosis. No eviden ce of any significant lumbar disc herniation. Minimal posterior disc bulging at L5-S1. There is a luis daniel imentary disc at S1-S2.
== END | disposition home or self-care (01) ==
LOC: RADMRIMAIN 15:51
PROVIDERS: ATTEND Internal Medicine
DX: M51.36 Other intervertebral disc degeneration, lumbar region (principal)
CPT/HCPCS: 72148

== ENCOUNTER → 2021-09-26 | Outpatient (CLI) | payer OTHER ==
--- NOTE | 2021-09-26 12:11 | XR ---
EXAMINATION TYPE: XR knee limited LT DATE OF EXAM: 09/26/2021 CLINICAL HISTORY: Progressive pain. TECHNIQUE: Frontal and lateral views of the left knee are obtained. COMPARISON: None. FINDINGS: There is no acute fracture/dislocation evident in the left knee. Mild tricompartment joint space loss with mild patellofemoral compartment spurring. Overlying soft tissue is unremarkable. IMPRESSION: As above.
--- NOTE | 2021-09-26 12:11 | XR ---
EXAMINATION TYPE: XR Hip Limited LT DATE OF EXAM: 09/26/2021 CLINICAL HISTORY: Progressive pain. TECHNIQUE: AP and frogleg views of the left hip are obtained. COMPARISON: None. FINDINGS: There is no acute fracture/dislocation evident in the left hip. The joint space in the le ft hip appears within normal limits. Femoral head shape is maintained. There are left-sided pelvic ph leboliths seen. IMPRESSION: As above.
== END | disposition home or self-care (01) ==
LOC: RADXRMAIN 11:43
PROVIDERS: ATTEND Internal Medicine
DX: M25.552 Pain in left hip (principal); M25.562 Pain in left knee
CPT/HCPCS: 73501

== ENCOUNTER → 2021-10-19 | Outpatient (CLI) | payer OTHER ==
[2021-10-19 09:06] VITALS: PULSE 65; RESP 16; TEMP 97.8
--- NOTE | 2021-10-19 09:06 | P.CON ---
Consult Note - . Consult date: 10/19/21 Assessment/Plan:: HISTORY OF PRESENT ILLNESS: 46 year old female as a referral from Dr. Vega presents today with lower back and pelvis pain for the last 6 months secondary to bilateral sacroileitis, DDD, disc bulges and facet arthropathy for evaluation. Patient states her back pain 6 out of 10 in intensity, constant, achy in character with radiation to the hips bilaterally. Pain is provoked with bending and lifting. Pain is relieved with Voltaren pills, prednisone Dosepak which she recently completed, home-based stretching regimen as tolerated, repositioning and rest. Past Medical History: Obesity, MDD History of Any Multi-Drug Resistant Organisms: None Reported Past Surgical History: Section, Lap Band (2008) & Removal. Social History: Negative x 3. Family History: Mother- Hypertension. Brother(s)- CA, DM, CAD. Father- Skin CA. All: NKDA Meds: See list REVIEW OF ORGAN SYSTEMS: CONSTITUTIONAL: No fevers or chills. No recent weight loss. HEENT: No visual acuity loss, eye pain, difficulties with hearing. No nosebleeds. No difficulty swallowing. RESPIRATORY: Denies any troubles with breathing or dyspnea on exertion. CARDIOVASCULAR: Denies any chest pain, palpitations, or recent heart attacks. GASTROINTESTINAL: Denies fatty food intolerance. Has change in bowel habits and gas bloat. GENITOURINARY: Denies any blood in urine. Has increased urinary frequency. NEUROLOGICAL: + numbness and tingling along the distal extremities. No seizure disorders or headaches. MUSCULOSKELETAL: + back pain SKIN: No skin cancer. No rash. PSYCHIATRIC: Denies current depression or suicidal thoughts. ENDOCRINE: Denies current thyroid disorders. Denies any blood sugar glucose intolerance. HEME/LYMPHATIC: Denies any lumps and bumps around the neck. History of deep venous thrombosis. ALLERGY/IMMUNOLOGY: No immunoglobulin therapy. No immune deficiencies. BREAST: Denies current breast lumps, pain or nipple discharge. Physical Examinations : Constitutional : Cooperative , not in acute distress . HEENT: Neck supple. No Lymphadenopathy. Normal thyroid size . Eyes no ptosis , no icterus, no photophobia . Hearing intact. Normal oropharynx. No Thrush. Respiratory : Chest clear to auscultations bilaterally. No wheezing. No rhonchi. Cardiovascular : Regular rate and rhythm , S1 / S2. No S3 . No S4. Gastrointestinal : Abdomen soft. No tenderness. Bowel sounds x 4. No organomegaly . Genitourinary : Deferred. Neurologic : Cranial nerve II to XII intact. No focal neurological deficits. Psychiatric : alert & oriented x 3. Matching mood & appropriate affect. Judgment & insight intact. Lymphatic No Lymphadenopathy. Musculoskeletal : Cervical Spine Motor strength in the deltoid and biceps: Normal right side. Normal Left side Motor strength biceps and the wrist extensors: Normal right side . Normal left side Motor strength in the triceps muscle: Normal right side. Normal left side Deep tendon reflexes: Normal at the biceps. Normal at Brachioradialis. Normal at triceps Cervical facet loading test: positive bilaterally Spurling test: positive bilaterally Neck distraction test: positive bilaterally Mirian sign: positive bilaterally Lumbar spine Motor strength lower extremities ,thigh and legs 5/5 Right side , 5/5 Left side Deep tendon reflexes : Normal Knee Jerk. Normal Ankle Jerk Vertebral body tenderness over S1 Lumbar facet Loading Test: positive Right / positive Left Range of motion of the lumbar spine Flexion 30 degrees, extension 10 degrees Straight Leg Raise test: Left/ Right positive at degree Grey test: positive right / positive left. Severe tenderness over the Sacroiliac joint on the Right / Left sides Gaenslen test: positive bilaterally Seated flexion test: positive bilaterally. Imaging: MRI of the Pelvis without contrast from 10/04/21 reviewed. Assessment/ Plan : Recommendation of BL SI joint injection. May need a series of injections to obtain optimal pain relief. Risks, benefits of procedure discussed and patient verbalized understanding. Denies aspirin or anti- coagulant use. Denies medical history of diabetes. All questions answered. I have spent greater than 50 minutes on patient care today. Dr Marrero was available by phone for the evaluation of this patient. The time was used to review the medical records including relevant urine studies and Prescription history (MAPs), review of the available imaging, evaluation and examination of the patient, coordination of care with the medical staff and if applicable referring physicians, as well as creation of the medical record PQRS Measure Charge Sheet PQRS Narrative: Smoking Status Never smoker Home Medications: Ambulatory Orders Acetaminophen/Diphenhydramine [Tylenol PM 500-25mg] 1 tab PO HS PRN 04/24/18 Hydrocodone/Acetaminophen [[place] 5-325] 1 - 2 each PO Q4HR PRN #10 tab 04/30/18
[2021-10-19 09:19] VITALS: BP 175/105
== END | disposition home or self-care (01) ==
LOC: PNWHC3 08:17
PROVIDERS: ATTEND Specialist
DX: M51.36 Other intervertebral disc degeneration, lumbar region (principal); M51.26 Other intervertebral disc displacement, lumbar region; M54.16 Radiculopathy, lumbar region
CPT/HCPCS: 99211

== ENCOUNTER 2021-10-22 19:14 | Emergency (ER) | payer OTHER ==
[2021-10-22 19:20] VITALS: TEMP 97.1
--- NOTE | 2021-10-22 19:33 | ED ---
General Adult HPI - General Chief complaint: Chest Pain Stated complaint: High Blood Pressure, Chest Tightness Time Seen by Provider: 10/22/21 19:32 Source: patient Mode of arrival: ambulatory Limitations: no limitations - History of Present Illness Initial comments: Patient presents to the ED with her for evaluation. Patient states that she has come to the ED this evening for evaluation of high blood pressure. Patient states that she has had high blood pressure readings over the past several days, and she is not sure why. Patient states that she had her blood pressure checked while at the grocery store today, and her systolic blood pre ssure was in the 190s. Patient admits to having mild, diffuse chest tightness for the past 1.5-2 weeks or so. Patient denies having any other symptoms or complaints. Patient denies fever or chills, headache, focal numbness/weakness/neuro deficit, visual changes, speech difficulty, neck/arm/jaw/back pain, pleuritic pain, dyspnea, cough or cold symptoms, palpitations, dizziness, nausea/vomiting/diaphoresis, abdominal pain, diarrhea, bloody or melanotic stool, dysuria or urinary symptoms, leg or calf swelling or pain, or any other symptoms or complaints. Patient denies taking any medication for management of high blood pressure. - Related Data Previous Rx's Medication Instructions Recorded Hydrochlorothiazide 12.5 mg PO DAILY #14 capsule 10/22/21 [hydroCHLOROthiazide] Allergies Allergy/AdvReac Type Severity Reaction Status Date / Time No Known Allergies Allergy Verified 10/22/21 21:06 Review of Systems ROS Statement: Those systems with pertinent positive or pertinent negative responses have been documented in the HPI. ROS Other: All systems not noted in ROS Statement are negative. Past Medical History Past Medical History: No Reported History Additional Past Medical History / Comment(s): STATES HX OF 2 EPISODES OF INVOLUNTARY MOVEMENTS ALL OVER (2010 & 2018)- TOLD POSSIBLE CHOREA., HAS LAP BAND, EPISODES OF VOMITING. History of Any Multi-Drug Resistant Organisms: None Reported Past Surgical History: Bariatric Surgery, Section Additional Past Surgical History / Comment(s): LAP BAND-2008 Past Anesthesia/Blood Transfusion Reactions: No Reported Reaction Past Psychological History: No Psychological Hx Reported, Bipolar Smoking Status: Never smoker Past Alcohol Use History: Occasional Past Drug Use History: None Reported - Past Family History Mother Family Medical History: Hypertension Brother(s) Family Medical History: Cancer, Diabetes Mellitus Additional Family Medical History / Comment(s): HEART DISEASE Father Family Medical History: Cancer Additional Family Medical History / Comment(s): SKIN CANCER, HEART DISEASE General Exam Limitations: no limitations General appearance: alert, in no apparent distress Head exam: Present: atraumatic, normocephalic Eye exam: Present: normal appearance, PERRL, EOMI ENT exam: Present: mucous membranes moist Neck exam: Present: other (Trachea is in midline) Respiratory exam: Present: normal lung sounds bilaterally. Absent: respiratory distress, wheezes, rales, rhonchi, stridor Cardiovascular Exam: Present: regular rate, normal rhythm, normal heart sounds, other (Normal radial pulses bilaterally) GI/Abdominal exam: Present: soft. Absent: distended, tenderness, guarding Extremities exam: Present: other (Negative Homans sign bilaterally). Absent: tenderness, pedal edema, calf tenderness Neurological exam: Present: alert, oriented X3, CN II-XII intact. Absent: motor sensory deficit Psychiatric exam: Present: normal affect, normal mood Skin exam: Present: warm, dry, intact, normal color Course Vital Signs 10/22/21 10/22/21 10/22/21 19:16 20:31 21:12 Temperature 97.1 F L Pulse Rate 90 84 79 Respiratory 20 18 18 Rate Blood Pressure 210/123 172/104 166/100 O2 Sat by Pulse 100 97 97 Oximetry - Reevaluation(s) Reevaluation #1: 10/22/21 21:30 Patient's blood pressure has improved while in the ED (now 160/100). Patient denies development of any new symptoms while in the ED. Patient remains alert and breathing comfortably. Patient and are aware the patient's test results, and patient feels comfortable being discharged home with her at this time. I have explained to the patient that given her significantly elevated blood pressure readings, I would recommend that she start on very low dose of a antihypertensive medication, and patient agrees with this plan. Patient was was counseled about hypertension and chest pain, and she was clearly explained return and follow-up instructions. Patient was instructed to follow up closely with her primary care provider. Patient was also instructed to the low threshold for return to the emergency department should her symptoms worsen. Patient feels comfortable with this plan. EKG Findings - EKG Comments: EKG Findings:: Normal sinus rhythm, occasional premature supraventricular complexes, ventricular rate of 84 bpm, normal IA and QRS intervals, normal QT interval, normal axis, nonspecific ST abnormality Medical Decision Making - Medical Decision Making Patient's blood pressure has improved while in the ED without any treatment. Patient's EKG and chest x-ray are fairly unremarkable. Patient's labs are also fairly unremarkable, including a negative troponin. Patient agrees with starting on a low-dose of an anti-hypertensive medication. Will discharge patient home with a prescription for low-dose HCTZ. Patient was instructed to, and agrees to, follow-up closely with her primary care provider. Patient feels comfortable with this plan. - Lab Data Result diagrams: 10/22/21 19:47 10/22/21 19:47 Lab Results 10/22/21 10/22/21 10/22/21 Range/Units 19:47 19:47 19:47 WBC 15.4 H (3.8-10.6) k/uL RBC 4.54 (3.80-5.40) m/uL Hgb 14.0 (11.4-16.0) gm/dL Hct 43.2 (34.0-46.0) % MCV 95.2 (80.0-100.0) fL MCH 30.8 (25.0-35.0) pg MCHC 32.4 (31.0-37.0) g/dL RDW 12.2 (11.5-15.5) % Plt Count 342 (150-450) k/uL MPV 7.2 Neutrophils % 67 % Lymphocytes % 26 % Monocytes % 4 % Eosinophils % 1 % Basophils % 1 % Neutrophils # 10.3 H (1.3-7.7) k/uL Lymphocytes # 4.1 (1.0-4.8) k/uL Monocytes # 0.5 (0-1.0) k/uL Eosinophils # 0.2 (0-0.7) k/uL Basophils # 0.1 (0-0.2) k/uL PT 10.4 (9.0-12.0) sec INR 0.9 (<1.2) APTT 22.6 (22.0-30.0) sec Sodium 136 L (137-145) mmol/L Potassium 4.0 (3.5-5.1) mmol/L Chloride 101 (98-107) mmol/L Carbon Dioxide 27 (22-30) mmol/L Anion Gap 8 mmol/L BUN 17 (7-17) mg/dL Creatinine 0.81 (0.52-1.04) mg/dL Est GFR (CKD-EPI)AfAm >90 (>60 ml/min/1.73 sqM) Est GFR (CKD-EPI)NonAf 89 (>60 ml/min/1.73 sqM) Glucose 96 (74-99) mg/dL Calcium 9.0 (8.4-10.2) mg/dL Magnesium 1.9 (1.6-2.3) mg/dL Total Bilirubin 0.5 (0.2-1.3) mg/dL AST 28 (14-36) U/L ALT 23 (4-34) U/L Alkaline Phosphatase 77 (38-126) U/L Troponin I (0.000-0.034) ng/mL Total Protein 7.4 (6.3-8.2) g/dL Albumin 4.0 (3.5-5.0) g/dL HCG, Qual Not Detected 10/22/21 Range/Units 19:47 WBC (3.8-10.6) k/uL RBC (3.80-5.40) m/uL Hgb (11.4-16.0) gm/dL Hct (34.0-46.0) % MCV (80.0-100.0) fL MCH (25.0-35.0) pg MCHC (31.0-37.0) g/dL RDW (11.5-15.5) % Plt Count (150-450) k/uL MPV Neutrophils % % Lymphocytes % % Monocytes % % Eosinophils % % Basophils % % Neutrophils # (1.3-7.7) k/uL Lymphocytes # (1.0-4.8) k/uL Monocytes # (0-1.0) k/uL Eosinophils # (0-0.7) k/uL Basophils # (0-0.2) k/uL PT (9.0-12.0) sec INR (<1.2) APTT (22.0-30.0) sec Sodium (137-145) mmol/L Potassium (3.5-5.1) mmol/L Chloride (98-107) mmol/L Carbon Dioxide (22-30) mmol/L Anion Gap mmol/L BUN (7-17) mg/dL Creatinine (0.52-1.04) mg/dL Est GFR (CKD-EPI)AfAm (>60 ml/min/1.73 sqM) Est GFR (CKD-EPI)NonAf (>60 ml/min/1.73 sqM) Glucose (74-99) mg/dL Calcium (8.4-10.2) mg/dL Magnesium (1.6-2.3) mg/dL Total Bilirubin (0.2-1.3) mg/dL AST (14-36) U/L ALT (4-34) U/L Alkaline Phosphatase (38-126) U/L Troponin I <0.012 (0.000-0.034) ng/mL Total Protein (6.3-8.2) g/dL Albumin (3.5-5.0) g/dL HCG, Qual - Radiology Data Chest x-ray: Normal chest. There is clearing of the mild pulmonary interstitial density compared to the old exam. Disposition Clinical Impression: Chest pain, Elevated blood pressure reading Disposition: HOME SELF-CARE Condition: Stable Instructions (If sedation given, give patient instructions): Chest Pain (ED), Hypertension (ED) Additional Instructions: Return to the ER immediately should you develop new or worsening pain, shortness of breath, vomiting, feeling dizzy or faint, numbness or weakness, or new or worsening symptoms. Follow up closely with your primary care provider. Prescriptions: Hydrochlorothiazide [hydroCHLOROthiazide] 12.5 mg PO DAILY #14 capsule Is patient prescribed a controlled substance at d/c from ED?: No Referrals: Tamia Vivas MD [Primary Care Provider] - 1-2 days Time of Disposition: 21:36
[2021-10-22 19:58] LABS: Basophils # (A) 0.1 k/uL (0-0.2); Basophils % (A) 1 %; Eosinophils # (A) 0.2 k/uL (0-0.7); Eosinophils % (A) 1 %; HCT 43.2 % (34.0-46.0); Lymphocytes # (A) 4.1 k/uL (1.0-4.8); Lymphocytes % (A) 26 %; MCH 30.8 pg (25.0-35.0); MCHC 32.4 g/dL (31.0-37.0); MCV 95.2 fL (80.0-100.0); Mean Platelet Volume 7.2; Monocytes # (A) 0.5 k/uL (0-1.0); Monocytes % (A) 4 %; Neutrophils # (A) 10.3 k/uL (1.3-7.7); Neutrophils % (A) 67 %; Platelet Count 342 k/uL (150-450); RBC 4.54 m/uL (3.80-5.40); RDW 12.2 % (11.5-15.5); WBC 15.4 k/uL (3.8-10.6)
--- NOTE | 2021-10-22 20:16 | XR ---
EXAMINATION TYPE: XR chest 2V DATE OF EXAM: 10/22/2021 COMPARISON: 11/12/2020 HISTORY: Chest pain TECHNIQUE: FINDINGS: Heart and mediastinum are normal. Lungs are clear. Diaphragm is normal. Bony thorax appears normal. There are chest leads. IMPRESSION: Normal chest. There is clearing of the mild pulmonary interstitial density compared to th e old exam.
[2021-10-22 20:29] LABS: INR 0.9 (<1.2); Partial Thromboplastin Time 22.6 sec (22.0-30.0); Prothrombin Time 10.4 sec (9.0-12.0)
[2021-10-22 20:31] VITALS: RESP 18
[2021-10-22 20:32] LABS: ALT 23 U/L (4-34); AST 28 U/L (14-36); African American GFR (CKD) >90 (>60 ml/min/1.73 sqM); Alkaline Phosphatase 77 U/L (38-126); Anion Gap 8 mmol/L; Blood Urea Nitrogen 17 mg/dL (7-17); Carbon Dioxide 27 mmol/L (22-30); Chloride 101 mmol/L (98-107); Glucose 96 mg/dL (74-99); Magnesium 1.9 mg/dL (1.6-2.3); Non-African American GFR(CKD) 89 (>60 ml/min/1.73 sqM); Sodium 136 mmol/L (137-145); Total Bilirubin 0.5 mg/dL (0.2-1.3); Total Protein 7.4 g/dL (6.3-8.2)
[2021-10-22 21:06] LABS: HCG,Qualitative Serum Not Detected
[2021-10-22 21:46] VITALS: BP 166/97; PULSE 69
== END 2021-10-22 21:46 | disposition home or self-care (01) ==
LOC: EC 19:14
DX: R03.0 Elevated blood-pressure reading, without diagnosis of hypertension (principal); R07.9 Chest pain, unspecified
CPT/HCPCS: 36415; 71046; 80053; 83735; 84484; 84703; 85025; 85610; 85730; 93005; 99285

== ENCOUNTER 2021-10-24 14:39 | Observation (INO) | payer OTHER ==
[2021-10-24] MEDS ORDERED: ASPIRIN 81 MG PO STA (15:06)
[2021-10-24] MEDS ORDERED: NITROGLYCERIN OINT 1 INCH/GM PACKET TOPICAL STA (15:06)
--- NOTE | 2021-10-24 15:09 | ED ---
General Adult HPI - General Chief complaint: Chest Pain Stated complaint: Chest pain Time Seen by Provider: 10/24/21 14:58 Source: patient, family, RN notes reviewed, old records reviewed Mode of arrival: wheelchair Limitations: no limitations - History of Present Illness Initial comments: Patient is a pleasant 46-year-old female presenting to the emergency Department with chest discomfort. Onset was around 3 days ago. Patient still is having symptoms. Patient was in the emergency department a couple of days ago. Patient describes discomfort as tightness in the center chest. No radiation. Patient does have worsening symptoms with exertion. Patient has some mild exertional dyspnea. No diaphoresis. Patient had one episode of minimal nausea. No history of chronic similar symptoms. No leg pain or leg swelling. Discomfort is currently mild rated 3/10. - Related Data Home Medications Medication Instructions Recorded Confirmed Acetaminophen/Diphenhydramine 2 tab PO HS 10/24/21 10/24/21 [Tylenol PM 500-25mg] Triamterene-Hctz 37.5-25Mg 1 tab PO DAILY 10/24/21 10/24/21 [Maxzide 37.5-25] Allergies Allergy/AdvReac Type Severity Reaction Status Date / Time No Known Allergies Allergy Verified 10/24/21 16:44 Review of Systems ROS Statement: Those systems with pertinent positive or pertinent negative responses have been documented in the HPI. ROS Other: All systems not noted in ROS Statement are negative. Constitutional: Denies: fever Eyes: Denies: eye pain ENT: Denies: ear pain Respiratory: Reports: as per HPI. Denies: cough Cardiovascular: Reports: as per HPI, chest pain Endocrine: Denies: fatigue Gastrointestinal: Reports: as per HPI Genitourinary: Denies: dysuria Musculoskeletal: Denies: back pain Skin: Denies: rash Neurological: Denies: weakness Past Medical History Past Medical History: No Reported History Additional Past Medical History / Comment(s): STATES HX OF 2 EPISODES OF INVOLUNTARY MOVEMENTS ALL OVER (2010 & 2018)- TOLD POSSIBLE CHOREA., HAS LAP BAND, EPISODES OF VOMITING. History of Any Multi-Drug Resistant Organisms: None Reported Past Surgical History: Bariatric Surgery, Section Additional Past Surgical History / Comment(s): LAP BAND-2009 Past Anesthesia/Blood Transfusion Reactions: No Reported Reaction Past Psychological History: No Psychological Hx Reported, Bipolar Smoking Status: Never smoker Past Alcohol Use History: Occasional Past Drug Use History: None Reported - Past Family History Mother Family Medical History: Hypertension Brother(s) Family Medical History: Cancer, Diabetes Mellitus Additional Family Medical History / Comment(s): HEART DISEASE Father Family Medical History: Cancer Additional Family Medical History / Comment(s): SKIN CANCER, HEART DISEASE General Exam Limitations: no limitations General appearance: alert, in no apparent distress Head exam: Present: normocephalic Eye exam: Present: normal appearance Neck exam: Present: normal inspection Respiratory exam: Present: normal lung sounds bilaterally. Absent: chest wall tenderness Cardiovascular Exam: Present: regular rate, normal rhythm Expanded Peripheral pulses: 2+: Radial (R), Radial (L), Posterior Tibialis (R), Posterior Tibialis (L) GI/Abdominal exam: Present: soft. Absent: tenderness Extremities exam: Present: normal inspection. Absent: pedal edema, calf tenderness Neurological exam: Present: alert Psychiatric exam: Present: normal affect, normal mood Skin exam: Present: normal color Course Vital Signs 10/24/21 10/24/21 10/24/21 14:43 16:00 16:12 Temperature 97 F L Pulse Rate 94 92 Respiratory 18 18 18 Rate Blood Pressure 173/125 184/117 O2 Sat by Pulse 98 100 Oximetry EKG Findings - EKG Comments: EKG Findings:: Sinus rhythm with rate of 87. TX 136. QRS 93. QT 347. QTC 392. Normal axis. LVH criteria. No acute ST change. Medical Decision Making - Medical Decision Making Patient reevaluated and resting comfortably in bed. Patient updated on results and plan. Case discussed with Dr. Fernandez, who will admit covering observation call. - Lab Data Result diagrams: 10/24/21 15:30 10/24/21 15:30 Lab Results 10/24/21 10/24/21 10/24/21 Range/Units 15:30 15:30 15:30 WBC 13.9 H (3.8-10.6) k/uL RBC 4.92 (3.80-5.40) m/uL Hgb 15.4 (11.4-16.0) gm/dL Hct 46.8 H (34.0-46.0) % MCV 95.0 (80.0-100.0) fL MCH 31.2 (25.0-35.0) pg MCHC 32.8 (31.0-37.0) g/dL RDW 12.7 (11.5-15.5) % Plt Count 350 (150-450) k/uL MPV 7.4 Neutrophils % 74 % Lymphocytes % 20 % Monocytes % 2 % Eosinophils % 2 % Basophils % 0 % Neutrophils # 10.4 H (1.3-7.7) k/uL Lymphocytes # 2.8 (1.0-4.8) k/uL Monocytes # 0.3 (0-1.0) k/uL Eosinophils # 0.2 (0-0.7) k/uL Basophils # 0.1 (0-0.2) k/uL PT 10.4 (9.0-12.0) sec INR 0.9 (<1.2) APTT 22.7 (22.0-30.0) sec D-Dimer 0.40 (<0.60) mg/L FEU Sodium 136 L (137-145) mmol/L Potassium 3.9 (3.5-5.1) mmol/L Chloride 98 (98-107) mmol/L Carbon Dioxide 26 (22-30) mmol/L Anion Gap 12 mmol/L BUN 11 (7-17) mg/dL Creatinine 0.65 (0.52-1.04) mg/dL Est GFR (CKD-EPI)AfAm >90 (>60 ml/min/1.73 sqM) Est GFR (CKD-EPI)NonAf >90 (>60 ml/min/1.73 sqM) Glucose 94 (74-99) mg/dL Calcium 9.5 (8.4-10.2) mg/dL Magnesium 2.0 (1.6-2.3) mg/dL Total Bilirubin 0.7 (0.2-1.3) mg/dL AST 31 (14-36) U/L ALT 30 (4-34) U/L Alkaline Phosphatase 97 (38-126) U/L Troponin I (0.000-0.034) ng/mL NT-Pro-B Natriuret Pep pg/mL Total Protein 8.4 H (6.3-8.2) g/dL Albumin 4.5 (3.5-5.0) g/dL Amylase 62 (30-110) U/L Lipase 131 (23-300) U/L 03/29/22 03/29/22 Range/Units 15:30 15:30 WBC (3.8-10.6) k/uL RBC (3.80-5.40) m/uL Hgb (11.4-16.0) gm/dL Hct (34.0-46.0) % MCV (80.0-100.0) fL MCH (25.0-35.0) pg MCHC (31.0-37.0) g/dL RDW (11.5-15.5) % Plt Count (150-450) k/uL MPV Neutrophils % % Lymphocytes % % Monocytes % % Eosinophils % % Basophils % % Neutrophils # (1.3-7.7) k/uL Lymphocytes # (1.0-4.8) k/uL Monocytes # (0-1.0) k/uL Eosinophils # (0-0.7) k/uL Basophils # (0-0.2) k/uL PT (9.0-12.0) sec INR (<1.2) APTT (22.0-30.0) sec D-Dimer (<0.60) mg/L FEU Sodium (137-145) mmol/L Potassium (3.5-5.1) mmol/L Chloride (98-107) mmol/L Carbon Dioxide (22-30) mmol/L Anion Gap mmol/L BUN (7-17) mg/dL Creatinine (0.52-1.04) mg/dL Est GFR (CKD-EPI)AfAm (>60 ml/min/1.73 sqM) Est GFR (CKD-EPI)NonAf (>60 ml/min/1.73 sqM) Glucose (74-99) mg/dL Calcium (8.4-10.2) mg/dL Magnesium (1.6-2.3) mg/dL Total Bilirubin (0.2-1.3) mg/dL AST (14-36) U/L ALT (4-34) U/L Alkaline Phosphatase (38-126) U/L Troponin I 0.020 (0.000-0.034) ng/mL NT-Pro-B Natriuret Pep 56 pg/mL Total Protein (6.3-8.2) g/dL Albumin (3.5-5.0) g/dL Amylase (30-110) U/L Lipase (23-300) U/L - Radiology Data Radiology results: image reviewed (Chest x-ray shows no acute process) Disposition Clinical Impression: Chest pain Disposition: ADMITTED IP TO THIS HOSP Is patient prescribed a controlled substance at d/c from ED?: No Referrals: Tamia Vivas MD [Primary Care Provider] - 1-2 days Decision Time: 17:07
[2021-10-24 15:37] LABS: Basophils # (A) 0.1 k/uL (0-0.2); Basophils % (A) 0 %; Eosinophils # (A) 0.2 k/uL (0-0.7); Eosinophils % (A) 2 %; HCT 46.8 % (34.0-46.0); HGB 15.4 gm/dL (11.4-16.0); Lymphocytes # (A) 2.8 k/uL (1.0-4.8); Lymphocytes % (A) 20 %; MCH 31.2 pg (25.0-35.0); MCHC 32.8 g/dL (31.0-37.0); Mean Platelet Volume 7.4; Monocytes # (A) 0.3 k/uL (0-1.0); Monocytes % (A) 2 %; Neutrophils # (A) 10.4 k/uL (1.3-7.7); Neutrophils % (A) 74 %; Platelet Count 350 k/uL (150-450); RBC 4.92 m/uL (3.80-5.40); RDW 12.7 % (11.5-15.5); WBC 13.9 k/uL (3.8-10.6)
[2021-10-24 15:45] LABS: ALT 30 U/L (4-34); AST 31 U/L (14-36); African American GFR (CKD) >90 (>60 ml/min/1.73 sqM); Albumin 4.5 g/dL (3.5-5.0); Alkaline Phosphatase 97 U/L (38-126); Amylase 62 U/L (30-110); Anion Gap 12 mmol/L; Blood Urea Nitrogen 11 mg/dL (7-17); Calcium 9.5 mg/dL (8.4-10.2); Carbon Dioxide 26 mmol/L (22-30); Chloride 98 mmol/L (98-107); Glucose 94 mg/dL (74-99); Lipase 131 U/L (23-300); Non-African American GFR(CKD) >90 (>60 ml/min/1.73 sqM); Potassium 3.9 mmol/L (3.5-5.1); Sodium 136 mmol/L (137-145); Total Bilirubin 0.7 mg/dL (0.2-1.3); Total Protein 8.4 g/dL (6.3-8.2)
[2021-10-24 15:51] LABS: INR 0.9 (<1.2); Partial Thromboplastin Time 22.7 sec (22.0-30.0); Prothrombin Time 10.4 sec (9.0-12.0)
--- NOTE | 2021-10-24 15:58 | XR ---
EXAMINATION TYPE: XR chest 2V DATE OF EXAM: 10/24/2021 COMPARISON: 10/22/2021 INDICATION: Chest pain TECHNIQUE: Single frontal view of the chest is obtained. FINDINGS: The heart size is normal. The pulmonary vasculature is normal. The lungs are clear. IMPRESSION: 1. No acute pulmonary process.
[2021-10-24] MEDS ORDERED: NITROGLYCERIN SL TABS 0.4 MG TAB SUBLINGUAL PRN (17:07)
[2021-10-24] MEDS ORDERED: METOPROLOL TARTRATE 25 MG TAB PO SCH (18:00)
--- NOTE | 2021-10-24 18:09 | P.HPIM ---
History of Present Illness H&P Date: 10/24/21 History of Presenting Illness: Patient is a very pleasant 46-year-old female with a past medical history of bariatric surgery with laparoscopic band placed in 2008 and bipolar disorder. She presented to the emergency department with a chief complaint of chest pain. Patient reports experiencing intermittent chest pain/discomfort beginning 3 days ago. She describes this pain as a midsternal pain/tightness that worsens with exertion accompanied by shortness of breath with exertion and palpitations. She denies experiencing any fevers, chills, dizziness, lightheadedness, headache, shortness of breath at rest, cough or congestion, abdominal pain, nausea, vomiting, or experiencing any numbness/tingling/weakness/swelling in her extremities. In the emergency department patient underwent full evaluation. EKG revealed normal sinus rhythm at 87 bpm with no noted T-wave or ST abnormalities. Chest x-ray was negative for acute cardiopulmonary process. CBC revealed mild leukocytosis with WBC count of 13.9 and CMP was unremarkable. D- dimer negative at 0.40 and troponin 0.020. Patient was admitted under our services with consultation to cardiology. Review of systems: Pertinent positives and negatives as discussed in HPI, a complete review of systems was performed and all other systems are negative. Physical exam: Vital signs reviewed and stable. General: Nontoxic, no distress and appears stated age. Derm: Skin warm and dry, normal coloration for ethnicity. Head: Atraumatic, normocephalic and symmetric. Eyes: EOMs intact, no lid lag, and anicteric sclera Mouth: no lip lesions, mucus membranes moist Cardiovascular: regular rate and rhythm with normal S1S2, no murmur, positive posterior tibial pulses bilaterally, and cap refill < 2 seconds. Lungs: Respirations even, regular, and unlabored on room air. Lungs CTA bilaterally, no rhonchi, no rales, no wheezing, and no accessory muscle usage. Abdominal: soft, nontender to palpation, no guarding, no appreciable organomegaly Ext: ROM intact. No gross muscle atrophy, no edema, no contractures Neuro: Speech clear, face symmetrical and CN II-XII grossly intact with no noted focal neuro deficits Psych: Alert and oriented to person, place, time, and situation. Appropriate and pleasant affect. Assessment and Plan of Care: Chest pain Hypertensive urgency -Cardiology consulted -Telemetry monitoring -Trend troponins -Echocardiogram -Close monitoring of vital signs. -Cardiac diet -Aspirin, atorvastatin, and metoprolol -Continuation of daily medications including: Maxzide -Lipid profile with a.m. labs. The patient is admitted with an anticipated less than 2 midnight stay for evaluation of chest pain. CODE STATUS: Full code DVT prophylaxis: Heparin Discussed with: Patient and RN Anticipated discharge date: 1-[address]: Home A total of 44 minutes was spent on the care of this complex patient more than 50% of the time was spent in counseling and care coordination. Jaxon Manriquez NP rendered care for this patient independently, reviewed the fin dings and plan as documented in the note above. I did not physically speak with or examine the patient on this date. Past Medical History Past Medical History: No Reported History Additional Past Medical History / Comment(s): STATES HX OF 2 EPISODES OF INVOLUNTARY MOVEMENTS ALL OVER (2010 & 2017)- TOLD POSSIBLE CHOREA., HAS LAP BAND, EPISODES OF VOMITING. History of Any Multi-Drug Resistant Organisms: None Reported Past Surgical History: Bariatric Surgery, Section Additional Past Surgical History / Comment(s): LAP BAND-2008 Past Anesthesia/Blood Transfusion Reactions: No Reported Reaction Past Psychological History: No Psychological Hx Reported, Bipolar Smoking Status: Never smoker Past Alcohol Use History: Occasional Past Drug Use History: None Reported - Past Family History Mother Family Medical History: Hypertension Brother(s) Family Medical History: Cancer, Diabetes Mellitus Additional Family Medical History / Comment(s): HEART DISEASE Father Family Medical History: Cancer Additional Family Medical History / Comment(s): SKIN CANCER, HEART DISEASE Medications and Allergies Home Medications Medication Instructions Recorded Confirmed Type Acetaminophen/Diphenhydramine 2 tab PO HS 10/24/21 10/24/21 History [Tylenol PM 500-25mg] Triamterene-Hctz 37.5-25Mg 1 tab PO DAILY 10/24/21 10/24/21 History [Maxzide 37.5-25] Allergies Allergy/AdvReac Type Severity Reaction Status Date / Time No Known Allergies Allergy Verified 10/24/21 16:44 Physical Exam Osteopathic Statement: *. No significant issues noted on an osteopathic structural exam other than those noted in the History and Physical/Consult. Vitals: Vital Signs Temp Pulse Resp BP Pulse Ox 10/24/21 17:21 163/111 10/24/21 16:12 92 18 184/117 100 10/24/21 16:00 18 10/24/21 14:43 97 F L 94 18 173/125 98 Intake and Output 10/24/21 10/24/21 10/24/21 06:59 14:59 22:59 Other: Weight 99.79 kg Results CBC & Chem 7: 10/24/21 15:30 10/24/21 15:30 Labs: Abnormal Lab Results - Last 24 Hours (Table) 10/24/21 10/24/21 Range/Units 15:30 15:30 WBC 13.9 H (3.8-10.6) k/uL Hct 46.8 H (34.0-46.0) % Neutrophils # 10.4 H (1.3-7.7) k/uL Sodium 136 L (137-145) mmol/L Total Protein 8.4 H (6.3-8.2) g/dL
[2021-10-24] MEDS ORDERED: ONDANSETRON 4 MG/2 ML VIAL IVP STA ×2 (18:31→20:38)
[2021-10-24] MEDS: HEPARIN SODIUM,PORCINE/PF 5,000 UNIT/0.5 ML SYRINGE SQ SCH (22:52)
[2021-10-24] MEDS: ATORVASTATIN 40 MG TAB PO SCH (22:53)
[2021-10-24] MEDS: NITROGLYCERIN OINT 1 INCH/GM PACKET TOPICAL SCH (22:55)
[2021-10-25] MEDS: NITROGLYCERIN OINT 1 INCH/GM PACKET TOPICAL SCH (05:55)
[2021-10-25] MEDS: TRIAMTERENE-HCTZ 37.5-25MG 1 EACH TAB PO SCH (07:26)
[2021-10-25] MEDS: ASPIRIN 81 MG PO SCH (07:27)
[2021-10-25] MEDS: HEPARIN SODIUM,PORCINE/PF 5,000 UNIT/0.5 ML SYRINGE SQ SCH ×2 (07:27→15:23)
[2021-10-25] MEDS: LOSARTAN 25 MG TAB PO SCH (08:28)
[2021-10-25] MEDS ORDERED: ASPIRIN 325 MG TAB PO SCH (09:00)
[2021-10-25 09:47] LABS: Chol/HDL Ratio 3.72 Ratio; LDL Cholesterol,Calculated 129.9 mg/dL (0.0-131.0)
--- NOTE | 2021-10-25 10:45 | US ---
EXAMINATION TYPE: US renal artery duplex complet DATE OF EXAM: 10/25/2021 COMPARISON: MRI lumbar spine August 16, 2021 CLINICAL HISTORY: rule out renal artery stenosis . recent onset of HTN 4 days ago. patient just start ed medication MEASUREMENTS: RENAL SIZE: Rt Kidney: 11.7 x 4.5 x 5.3cm Lt Kidney: 12.3 x 5.2 x 4.8cm RESISTANCE INDEX Right: 0.60 Left: 0.58 RA/AO RATIO (< 3.5 ) Right: 1.6 Left: 2.7 RA VELOCITY ( < 180 cm/s) Right: 158.5 cm/s Left: 269.4 cm/s Aorta appears unremarkable. possible subtle isoechoic area mid right kidney = 3.5 x 2.8 x 3.0cm. elev ated velocities left renal artery Renal sizes are symmetric and within normal limits. Abnormal increased peak systolic velocity on the left. Resistive indices are within normal limits bilaterally. Subtle isoechoic 3.0 cm area midpole le marlene right kidney possible lobulated tissue versus solid mass. Recent lumbar spine MRI showed no suspi cious renal mass. Intraluminal gallstone incidentally noted. IMPRESSION: As above. Abnormal study. Advise CTA or MRAMRI of the abdomen to exclude origin stenosis left renal artery. Finding could also definitively exclude right renal mass though strongly favor lob ulated cortex.
--- NOTE | 2021-10-25 11:06 | P.CRDCN ---
History of Present Illness History of present illness: HISTORY OF PRESENTING ILLNESS This is a pleasant 46-year-old female past medical history significant for hypertension. 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 We have been asked to see in consultation for chest pain. Patient presents emergency department with intermittent chest discomfort. Located midsternal. She describes it as a pressure and tightness. It is nonradiating, nonexertional. She does have associated shortness of breath. She describes it as she feels like she is los ing her voice. With activity she sometimes also feels short of breath and having dizziness and lightheadedness. She states she normally notices he symptoms on her blood pressure is elevated at home. She states that she was recently diagnosed with hypertension and was started on antihypertensive 3 days ago by her primary care provider Dr. Vivas. She states she's only been taking his medication for 3 days. At home she notes her blood pressure be 210/134 and presented emergency department due to uncontrolled hypertension and chest pain. She denies any associated nausea, vomiting, diaphoresis. She denies any tobacco use. Family history includes her siblings have had a heart transplant and congestive heart failure, mother has a history of hypertension and father had a history of a pacemaker implantation. Patient denies any history of CAD, [place], stroke, dyslipidemia. DIAGNOSTICS EKG reveals sinus rhythm, heart rate 87, T wave inversion in lead 3, poor R wave progression, nonspecific ST and T wave abnormalities in the inferior leads and V4 through V6. Could be related to uncontrolled hypertension. Prior EKG in 2020 with some similar findings Telemetry tracings indicate sinus mechanism Chest xray no acute cardiopulmonary process Laboratory reviewed, troponin negative 3, d-dimer negative, sodium 136, potassium 2.9, BUN 11, serum creatinine 0.6 Current home medications include Maxzide 30 7. 525 milligrams daily Stress test in 2019 was negative for reversible ischemia. REVIEW OF SYSTEMS At the time of my exam: CONSTITUTIONAL: Denies fever or chills. CARDIOVASCULAR: Denies chest pain, shortness of breath, orthopnea, PND or palpitations. RESPIRATORY: Denies cough. GASTROINTESTINAL: Denies abdominal pain, diarrhea, constipation, nausea or vomiting. MUSCULOSKELETAL: Denies myalgias. NEUROLOGIC: Denies numbness, tingling, headache or weakness. ENDOCRINE: Denies fatigue, weight change, polydipsia or polyurina. GENITOURINARY: Denies burning, hematuria or urgency with micturation. HEMATOLOGIC: Denies history of anemia or bleeding. PHYSICAL EXAMINATION Blood pressure 141/105, heart rate 81, afebrile, saturations 98% on room air CONSTITUTIONAL: No apparent distress. HEENT: Head is normocephalic. Pupils are equal, round. Sclerae anicteric. Mucous membranes of the mouth are moist. No JVD. No carotid bruit. CHEST EXAMINATION: Lungs are clear to auscultation. No chest wall tenderness is noted on palpation or with deep breathing. HEART EXAMINATION: Regular rate and rhythm. S1, S2 heard. No murmurs, gallops or rub. ABDOMEN: Soft, nontender. Positive bowel sounds. EXTREMITIES: 2+ peripheral pulses, no lower extremity edema and no calf tenderness. SKIN: Warm, dry NEUROLOGIC EXAMINATION: Patient is awake, alert and oriented x3. ASSESSMENT Chest pain, atypical, acute coronary syndrome has ruled out, likely related to patient's uncontrolled hypertension Hypertensive urgency History of hypertension Dyslipidemia Current 10 year ASCVD risk 1.4% PLAN An acute coronary event has been ruled out with no EKG evidence of ischemia and negative cardiac enzymes. Obtain 2D echocardiogram and doppler study to assess cardiac structure and function. Obtain Renal Artery Ultrasound to rule out renal artery stenosis Start Losartan 25mg daily Stop beta jason Continue Triameterene-Hctz Lipid panel Heart healthy/ Low salt diet Recommend monitoring patient for additional 24 hours. Further recommendations based on technical course Thank you kindly for this consultation. Nurse practitioner note has been reviewed by physician. Signing provider agrees with the documented findings, assessment, and plan of care. Past Medical History Past Medical History: No Reported History Additional Past Medical History / Comment(s): STATES HX OF 2 EPISODES OF INVOLUNTARY MOVEMENTS ALL OVER (2010 & 2018)- TOLD POSSIBLE CHOREA., HAS LAP BAND, EPISODES OF VOMITING. History of Any Multi-Drug Resistant Organisms: None Reported Past Surgical History: Bariatric Surgery, Section Additional Past Surgical History / Comment(s): LAP BAND-2008 Past Anesthesia/Blood Transfusion Reactions: No Reported Reaction Past Psychological History: No Psychological Hx Reported, Bipolar Additional Psychological History / Comment(s): NO MEDS Smoking Status: Never smoker Past Alcohol Use History: Occasional Past Drug Use History: None Reported - Past Family History Mother Family Medical History: Hypertension Brother(s) Family Medical History: Cancer, Diabetes Mellitus Additional Family Medical History / Comment(s): HEART DISEASE Father Family Medical History: Cancer Additional Family Medical History / Comment(s): SKIN CANCER, HEART DISEASE Medications and Allergies Home Medications Medication Instructions Recorded Confirmed Type Acetaminophen/Diphenhydramine 2 tab PO HS 10/24/21 10/24/21 History [Tylenol PM 500-25mg] Triamterene-Hctz 37.5-25Mg 1 tab PO DAILY 10/24/21 10/24/21 History [Maxzide 37.5-25] Allergies Allergy/AdvReac Type Severity Reaction Status Date / Time No Known Allergies Allergy Verified 10/24/21 16:44 Physical Exam Vitals: Vital Signs Temp Pulse Pulse Resp BP BP Pulse Ox 10/25/21 02:00 98.0 F 88 18 125/86 95 10/24/21 21:57 80 20 117/80 99 10/24/21 17:41 154/110 10/24/21 17:21 163/111 10/24/21 16:12 92 18 184/117 100 10/24/21 16:00 18 10/24/21 14:43 97 F L 94 18 173/125 98 Intake and Output 10/24/21 10/25/21 10/25/21 22:59 06:59 14:59 Other: # Voids 0 1 Weight 99.79 kg Results 10/24/21 15:30 10/24/21 15:30 Cardiac Enzymes 10/24/21 10/24/21 10/24/21 Range/Units 15:30 15:30 18:06 AST 31 (14-36) U/L Troponin I 0.020 <0.012 (0.000-0.034) ng/mL 10/24/21 Range/Units 21:32 AST (14-36) U/L Troponin I <0.012 (0.000-0.034) ng/mL Coagulation 10/24/21 Range/Units 15:30 PT 10.4 (9.0-12.0) sec APTT 22.7 (22.0-30.0) sec CBC 10/24/21 Range/Units 15:30 WBC 13.9 H (3.8-10.6) k/uL RBC 4.92 (3.80-5.40) m/uL Hgb 15.4 (11.4-16.0) gm/dL Hct 46.8 H (34.0-46.0) % Plt Count 350 (150-450) k/uL Comprehensive Metabolic Panel 10/24/21 Range/Units 15:30 Sodium 136 L (137-145) mmol/L Potassium 3.9 (3.5-5.1) mmol/L Chloride 98 (98-107) mmol/L Carbon Dioxide 26 (22-30) mmol/L BUN 11 (7-17) mg/dL Creatinine 0.65 (0.52-1.04) mg/dL Glucose 94 (74-99) mg/dL Calcium 9.5 (8.4-10.2) mg/dL AST 31 (14-36) U/L ALT 30 (4-34) U/L Alkaline Phosphatase 97 (38-126) U/L Total Protein 8.4 H (6.3-8.2) g/dL Albumin 4.5 (3.5-5.0) g/dL Current Medications Generic Name Dose Route Start Last Admin Trade Name Freq PRN Reason Stop Dose Admin Aspirin 81 mg 10/25/21 09:00 Aspirin 325 Mg Tab PO DAILY DENNIS Atorvastatin Calcium 40 mg 10/24/21 21:00 10/24/21 22:53 Atorvastatin 40 Mg Tab PO 40 mg HS DENNIS Administration Heparin Sodium (Porcine) 5,000 unit 10/25/21 00:00 10/24/21 22:52 Heparin Sodium,Porcine/Pf 5,000 Unit/0.5 Ml Syringe SQ 5,000 unit Q8HR DENNIS Administration Metoprolol Tartrate 25 mg 10/24/21 18:00 10/24/21 18:07 Metoprolol Tartrate 25 Mg Tab PO 25 mg BID DENNIS Administration Nitroglycerin 0.4 mg 10/24/21 17:07 10/24/21 17:24 Nitroglycerin Sl Tabs 0.4 Mg Tab SUBLINGUAL 0.4 mg Q5M PRN Administration Chest Pain Sodium Chloride 10 ml 10/24/21 21:00 10/24/21 22:53 Sodium Chloride 0.9% Flush 10 Ml Syringe IV 10 ml BID DENNIS Administration Triamterene/Hydrochlorothiazide 1 each 10/25/21 09:00 Triamterene-Hctz 37.5-25mg 1 Each Tab PO DAILY DENNIS Intake and Output 10/24/21 10/25/21 10/25/21 22:59 06:59 14:59 Other: # Voids 0 1 Weight 99.79 kg 10/24/21 15:30 10/24/21 15:30
--- NOTE | 2021-10-25 11:28 | P.PN ---
Subjective Progress Note Date: 10/25/21 Hospital course: Patient is a very pleasant 46-year-old female with a past medical history of bariatric surgery with laparoscopic band placed in 2008 and bipolar disorder. She presented to the emergency department with a chief complaint of chest pain. Patient reports experiencing intermittent chest pain/discomfort beginning 3 days ago. She describes this pain as a midsternal pain/tightness that worsens with exertion accompanied by shortness of breath with exertion and palpitations. She denies experiencing any fevers, chills, dizziness, lightheadedness, headache, shortness of breath at rest, cough or congestion, abdominal pain, nausea, vomiting, or experiencing any numbness/tingling/weakness/swelling in her extremities. In the emergency department patient underwent full evaluation. EKG revealed normal sinus rhythm at 87 bpm with no noted T-wave or ST abnormalities. Chest x-ray was negative for acute cardiopulmonary process. CBC revealed mild leukocytosis with WBC count of 13.9 and CMP was unremarkable. D- dimer negative at 0.40 and troponin 0.020. Patient was found to be significantly hypertensive with blood pressure 173/125 and 184/117. Patient was admitted under our services with consultation to cardiology. Adjustments were made to blood pressure medications, in addition to Maxzide patient was started on losartan 25 mg daily. She underwent a renal artery ultrasound which was concerning for left renal artery stenosis and revealed a subtle isoechoic area mid right kidney measuring 3.5 x 2.8 x 3.0 cm. CTA abdomen and pelvis to be completed. Physical exam: Patient seen and fully evaluated at bedside this morning. Patient reports full resolution of chest pain. Vital signs reviewed and patient remains hypertensive with blood pressure 141/105. Patient received first dose of losartan this morning. Patient underwent renal artery ultrasound which revealed left renal artery stenosis as well as a subtle isoechoic area in her mid right kidney. CTA abdomen and pelvis to be completed. Patient updated on findings concerning for stenosis and plan for additional testing. Patient denied having any questions, concerns, or complaints at this time. Vital signs reviewed and stable. General: Nontoxic, no distress and appears stated age. Derm: Skin warm and dry, normal coloration for ethnicity. Head: Atraumatic, normocephalic and symmetric. Eyes: EOMs intact, no lid lag, and anicteric sclera Mouth: no lip lesions, mucus membranes moist Cardiovascular: regular rate and rhythm with normal S1S2, no murmur, positive posterior tibial pulses bilaterally, and cap refill < 2 seconds. Lungs: Respirations even, regular, and unlabored on room air. Lungs CTA bilaterally, no rhonchi, no rales, no wheezing, and no accessory muscle usage. Abdominal: soft, nontender to palpation, no guarding, no appreciable organomegaly Ext: ROM intact. No gross muscle atrophy, no edema, no contractures Neuro: Speech clear, face symmetrical and CN II-XII grossly intact with no noted focal neuro deficits Psych: Alert and oriented to person, place, time, and situation. Appropriate and pleasant affect. Assessment and Plan of Care: Chest pain Hypertensive urgency Hyperlipidemia -Cardiology following, started patient on losartan, appreciate further re commendations -EKG negative for ischemic changes -Troponins 0.020, < 0.012, < 0.012 -Echocardiogram -Renal artery duplex completed revealing left renal artery stenosis as well as a subtle isoechoic area mid right kidney. CTA abdomen and pelvis to be completed. -Continue telemetry monitoring and Close monitoring of vital signs. -Cardiac diet -Aspirin and atorvastatin -Continuation of daily medications including: Maxzide -Lipid profile revealing hyperlipidemia and hypertriglyceridemia with total cholesterol 228 and triglycerides of 184. CODE STATUS: Full code DVT prophylaxis: Heparin Discussed with: Patient and RN Anticipated discharge date: 1-[address]: Home A total of 39 minutes was spent on the care of this complex patient more than 50% of the time was spent in counseling and care coordination. I reviewed the documentation as provided by the SHAKA above, who is the original author of this note. I agree with the documented assessment and plan, with the following changes: None Objective - Vital Signs Vital signs: Vital Signs Temp 97.7 F 10/25/21 07:00 Pulse 81 10/25/21 07:00 Resp 18 10/25/21 07:00 BP 141/105 10/25/21 07:00 Pulse Ox 98 10/25/21 07:00 Intake & Output 10/24/21 10/25/21 10/25/21 18:59 06:59 18:59 Weight 99.79 kg 99.79 kg Other: # Voids 1 - Labs CBC & Chem 7: 10/24/21 15:30 10/24/21 15:30 Labs: Abnormal Lab Results - Last 24 Hours (Table) 10/24/21 10/24/21 Range/Units 15:30 15:30 WBC 13.9 H (3.8-10.6) k/uL Hct 46.8 H (34.0-46.0) % Neutrophils # 10.4 H (1.3-7.7) k/uL Sodium 136 L (137-145) mmol/L Total Protein 8.4 H (6.3-8.2) g/dL
--- NOTE | 2021-10-25 14:21 | ECHOF ---
Referral Reason:Evaluate structure and function of heart MEASUREMENTS -------- HEIGHT: 170.2 cm WEIGHT: 99.8 kg BP: RVIDd: 3.1 cm (< 3.3) IVSd: 1.7 cm (0.6 - 1.1) LVIDd: 3.8 cm (3.9 - 5.3) LVPWd: 1.8 cm (0.6 - 1.1) IVSs: 1.6 cm LVIDs: 2.6 cm LVPWs: 2.1 cm LAESV Index (A-L): 15.15 ml/m Ao Diam: 3.1 cm (2.0 - 3.7) AV Cusp: 1.8 cm (1.5 - 2.6) LA Diam: 3.3 cm (2.7 - 3.8) MV EXCURSION: 15.965 mm (> 18.000) MV EF SLOPE: 58 mm/s (70 - 150) EPSS: 1.0 cm MV E Oneil: 0.46 m/s MV DecT: 242 ms MV A Oneil: 0.83 m/s MV E/A Ratio: 0.56 RAP: 5.00 mmHg RVSP: 15.84 mmHg FINDINGS -------- Sinus rhythm. This was a technically adequate study. The left ventricular size is normal. There is severe concentric left ventricular hypertrophy. Ove rall left ventricular systolic function is normal with, an EF between 55 - 60 %. The diastolic fill ing pattern is normal for the age of the patient 7.54. The right ventricle is normal in size. Normal LA size by volume 22+/-6 ml/m2. The right atrial size is normal. Interatrial and interventricular septum intact. There is no evidence of aortic regurgitation. There is no evidence of aortic stenosis. No mitral regurgitation. Mild tricuspid regurgitation present. There is no evidence of pulmonary hypertension. The right v entricular systolic pressure, as measured by Doppler, is 15.84mmHg. Trace/mild (physiologic) pulmonic regurgitation. The aortic root size is normal. IVC Not well visulized. There is no pericardial effusion. CONCLUSIONS -------- 1. The left ventricular size is normal. 2. There is severe concentric left ventricular hypertrophy. 3. Overall left ventricular systolic function is normal with, an EF between 55 - 60 %. 4. Mild tricuspid regurgitation present. 5. Trace/mild (physiologic) pulmonic regurgitation. PAINT TESTER: Shara Aguila RDCS
[2021-10-25 14:50] VITALS: TEMP 98.3
--- NOTE | 2021-10-25 15:00 | CT ---
EXAMINATION TYPE: CT angio abdomen pelvis DATE OF EXAM: 10/25/2021 INDICATION: abnormal US of renal arteries CT DLP: 1525.8 mGy.cm Automated Exposure Control for Dose Reduction was Utilized. TECHNIQUE AND CONTRAST: CT scan of the abdomen and pelvis is performed without and with IV Contrast, patient injected with 10 0 mL of Isovue 370. 3-D and MIP reconstruction images were generated on an independent workstation an d reviewed. COMPARISON: Renal arterial Doppler dated 10/25/2021 FINDINGS: An accessory left renal artery is seen arising from the abdominal aorta about 3.3 cm inferior to the origin of the left main renal artery. Focal stenosis is seen at the most proximal portion of the acce ssory left renal artery yet patent distally. Normal caliber and enhancement of the main renal arterie s bilaterally without significant stenosis or occlusion. Incidental finding of a right hepatic artery arising from the superior mesenteric artery. Otherwise normal caliber and enhancement of the abdomin al aorta and remainder of the major abdominal and pelvic arteries. No definite hepatic focal lesion by this CT angiographic study. Cholelithiasis without evidence of ac tazlina cholecystitis. Unremarkable spleen, pancreas, kidneys and adrenals. The endometrium measures 13 m m which could be normal for the patient's age. Left ovarian/adnexal cyst measuring up to 5.5 cm witho ut gross suspicious feature which could represent a follicular cyst. Recommend follow-up ultrasound i n 6 weeks for reassessment. No gross right adnexal mass. Unremarkable urinary bladder. Surgical clips are seen at the gastroesophageal junction, otherwise unremarkable stomach. Second part of the duodenum diverticulum, otherwise unremarkable duodenum and small bowel. Fecal loading of the colon. Normal appendix. No suspicious lymphadenopathy or sizable ascites. Anterior abdominal wall sub cutaneous gas probably related to recent subcutaneous injections, please correlate clinically. Left f at-containing inguinal hernia. Unremarkable lung bases. No aggressive bone lesion. IMPRESSION: Suspected focal stenosis of the most proximal portion of the left inferior accessory renal artery as described above. Unremarkable renal arteries otherwise. Unremarkable kidneys with no definite lesion identified. Other incidental findings and recommendations as detailed above.
--- NOTE | 2021-10-25 15:10 | P.GSCN ---
History of Present Illness Consult date: 10/25/21 Reason for Consult: hypertensive urgency, possible renal stenosis Requesting physician: Jaxon Manriquez History of present illness: 46-year-old female with a history of hypertension who came to the emergency department with complaints of chest pain and tightness. Patient states she had been at her family doctor in that her blood pressure was very elevated. Looks like blood pressure has been stable since she's been in the hospital. This morning she did have elevated blood pressure 141/105. Primary medicine, ordered a renal artery duplex which stated abnormal study. Advise CTA or MRA or MRI of the abdomen to exclude origin stenosis left renal artery. Finding could also definitively exclude the right renal mass though strongly favor a lobulated cortex. Vascular surgery was consulted for possible renal artery stenosis. Patient had a abdominal pelvis CT angiogram which was reviewed by Dr. [place] that shows no renal artery stenosis. Patient currently denies any shortness of breath or chest pain. No nausea, vomiting, abdominal pain, fevers or chills. Review of Systems A 14 point review of systems was completed all pertinent positives and negatives as stated in the HPI Past Medical History Past Medical History: No Reported History Additional Past Medical History / Comment(s): STATES HX OF 2 EPISODES OF INVOL UNTARY MOVEMENTS ALL OVER (2010 & 2018)- TOLD POSSIBLE CHOREA., HAS LAP BAND, EPISODES OF VOMITING. History of Any Multi-Drug Resistant Organisms: None Reported Past Surgical History: Bariatric Surgery, Section Additional Past Surgical History / Comment(s): LAP BAND-2008 Past Anesthesia/Blood Transfusion Reactions: No Reported Reaction Past Psychological History: No Psychological Hx Reported, Bipolar Additional Psychological History / Comment(s): NO MEDS Smoking Status: Never smoker Past Alcohol Use History: Occasional Past Drug Use History: None Reported - Past Family History Mother Family Medical History: Hypertension Brother(s) Family Medical History: Cancer, Diabetes Mellitus Additional Family Medical History / Comment(s): HEART DISEASE Father Family Medical History: Cancer Additional Family Medical History / Comment(s): SKIN CANCER, HEART DISEASE Medications and Allergies Home Medications Medication Instructions Recorded Confirmed Type Acetaminophen/Diphenhydramine 2 tab PO HS 10/24/21 10/24/21 History [Tylenol PM 500-25mg] Triamterene-Hctz 37.5-25Mg 1 tab PO DAILY 10/24/21 10/24/21 History [Maxzide 37.5-25] Allergies Allergy/AdvReac Type Severity Reaction Status Date / Time No Known Allergies Allergy Verified 10/24/21 16:44 Surgical - Exam Vital Signs Temp Pulse Resp BP Pulse Ox 97 F L 94 18 173/125 98 10/24/21 14:43 10/24/21 14:43 10/24/21 14:43 10/24/21 14:43 10/24/21 14:43 General appearance: The patient is alert, oriented, appears in no acute distress. HET: Head is normocephalic and atraumatic. Neck: Supple without lymphadenopathy. Trachea midline. No audible carotid bruit. Heart: S1 S2. Regular rate and rhythm. Lungs: Clear to auscultation bilaterally. Abdomen: Soft, nontender, nondistended. Extremities: Normal skin color and turgor. No cyanosis, rash, ulceration, clubbing, or edema. Radial and pedal pulses are 2/4 bilaterally. Neurological: No focal deficits. Strength and sensation are grossly intact. Results - Labs 10/24/21 15:30 10/24/21 15:30 Abnormal Lab Results - Last 24 Hours (Table) 10/24/21 10/24/21 10/24/21 Range/Units 15:30 15:30 15:30 WBC 13.9 H (3.8-10.6) k/uL Hct 46.8 H (34.0-46.0) % Neutrophils # 10.4 H (1.3-7.7) k/uL Sodium 136 L (137-145) mmol/L Total Protein 8.4 H (6.3-8.2) g/dL Triglycerides 184.00 H (0.00-149.00) mg/dL Cholesterol 228.00 H (0.00-200.00) mg/dL HDL Cholesterol 61.30 H (40.00-60.00) mg/dL Diabetes panel 10/24/21 10/24/21 Range/Units 15:30 15:30 Sodium 136 L (137-145) mmol/L Potassium 3.9 (3.5-5.1) mmol/L Chloride 98 (98-107) mmol/L Carbon Dioxide 26 (22-30) mmol/L BUN 11 (7-17) mg/dL Creatinine 0.65 (0.52-1.04) mg/dL Glucose 94 (74-99) mg/dL Calcium 9.5 (8.4-10.2) mg/dL AST 31 (14-36) U/L ALT 30 (4-34) U/L Alkaline Phosphatase 97 (38-126) U/L Total Protein 8.4 H (6.3-8.2) g/dL Albumin 4.5 (3.5-5.0) g/dL Triglycerides 184.00 H (0.00-149.00) mg/dL HDL Cholesterol 61.30 H (40.00-60.00) mg/dL Calcium panel 10/24/21 Range/Units 15:30 Calcium 9.5 (8.4-10.2) mg/dL Albumin 4.5 (3.5-5.0) g/dL Pituitary panel 10/24/21 Range/Units 15:30 Sodium 136 L (137-145) mmol/L Potassium 3.9 (3.5-5.1) mmol/L Chloride 98 (98-107) mmol/L Carbon Dioxide 26 (22-30) mmol/L BUN 11 (7-17) mg/dL Creatinine 0.65 (0.52-1.04) mg/dL Glucose 94 (74-99) mg/dL Calcium 9.5 (8.4-10.2) mg/dL Adrenal panel 10/24/21 Range/Units 15:30 Sodium 136 L (137-145) mmol/L Potassium 3.9 (3.5-5.1) mmol/L Chloride 98 (98-107) mmol/L Carbon Dioxide 26 (22-30) mmol/L BUN 11 (7-17) mg/dL Creatinine 0.65 (0.52-1.04) mg/dL Glucose 94 (74-99) mg/dL Calcium 9.5 (8.4-10.2) mg/dL Total Bilirubin 0.7 (0.2-1.3) mg/dL AST 31 (14-36) U/L ALT 30 (4-34) U/L Alkaline Phosphatase 97 (38-126) U/L Total Protein 8.4 H (6.3-8.2) g/dL Albumin 4.5 (3.5-5.0) g/dL - Imaging Comments: Renal duplex reports abnormal study. Advise CTA or MRI/MRA of the abdomen to exclude origin stenosis left renal artery. Finding could also definitively ex clude right renal mass strongly favor a lobulated cortex. CT angiogram abdomen and pelvis reviewed by Dr. [place], no renal artery stenosis Assessment and Plan Assessment: 1. Hypertension 2. Chest pain Plan: Renal artery duplex and CTA abdomen and pelvis reviewed by Dr. [place]. There is no indication for any renal artery stenosis. There is no indication for any vascular surgical intervention. Continue with medical management for hypertension. Thank you for this consultation, we will sign off at this time. The impression and plan of care has been dictated as directed. I performed a history and examination of this patient, discussed the same with the dictator. I agree with the dictator's note ,documented as a scribe. Any additional findings or plans will be noted.
[2021-10-25] MEDS: ATORVASTATIN 40 MG TAB PO SCH (21:14)
[2021-10-26] MEDS: HEPARIN SODIUM,PORCINE/PF 5,000 UNIT/0.5 ML SYRINGE SQ SCH ×2 (00:30→09:14)
[2021-10-26 08:17] VITALS: BP 136/90; PULSE 104; RESP 16
[2021-10-26] MEDS: TRIAMTERENE-HCTZ 37.5-25MG 1 EACH TAB PO SCH (09:00)
[2021-10-26] MEDS: LOSARTAN 25 MG TAB PO SCH (09:00)
[2021-10-26] MEDS: ASPIRIN 81 MG PO SCH (09:00)
--- NOTE | 2021-10-26 09:03 | P.PN ---
Subjective This is a pleasant 46-year-old female past medical history significant for hypertension. 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 We have been asked to see in consultation for chest pain. Patient presents emergency department with intermittent chest discomfort. Located midsternal. She describes it as a pressure and tightness. It is nonradiating, nonexertional. She does have associated shortness of breath. She describes it as she feels like she is losing her voice. With activity she sometimes also feels short of breath and having dizziness and lightheadedness. She states she normally notices he symptoms on her blood pressure is elevated at home. She states that she was recently diagnosed with hypertension and was started on antihypertensive 3 days ago by her primary care provider Dr. Vivas. She states she's only been taking his medication for 3 days. At home she notes her blood pressure be 210/134 and presented emergency department due to uncontrolled hypertension and chest pain. She denies any associated nausea, vomiting, diaphoresis. She denies any tobacco use. Family history includes her siblings have had a heart transplant and congestive heart failure, mother has a history of hypertension and father had a history of a pacemaker implantation. Patient denies any history of CAD, VT, stroke, dyslipidemia. 10/26/2021 Patient seen and examined at bedside, no acute distress. She denies any chest pain or shortness of breath. Denies any lightheadedness or dizziness. Her blood pressures have improved. Renal artery ultrasound was suspicious for renal artery stenosis. CT abdomen and pelvis revealed focal stenosis is seen at the most proximal portion of the accessory left renal artery only. Echocardiogram revealed an EF 5560 percent, severe concentric LVH, mild tricuspid regurgitation PHYSICAL EXAMINATION Blood pressure 136/90, heart rate 86, afebrile, saturations 96% on room air CONSTITUTIONAL: No apparent distress. HEENT: Neck supple. No JVD. CHEST EXAMINATION: Lungs are clear to auscultation. No chest wall tenderness is noted on palpation or with deep breathing. HEART EXAMINATION: Regular rate and rhythm. S1, S2 heard. No murmurs, gallops or rub. ABDOMEN: Soft, nontender. Positive bowel sounds. EXTREMITIES: 2+ peripheral pulses, no lower extremity edema and no calf t enderness. SKIN: Warm, dry NEUROLOGIC EXAMINATION: Patient is awake, alert and oriented x3. ASSESSMENT Chest pain, atypical, acute coronary syndrome has ruled out, likely related to patient's uncontrolled hypertension Left renal artery stenosis Hypertensive urgency History of hypertension Dyslipidemia Current 10 year ASCVD risk 1.4% PLAN An acute coronary event has been ruled out with no EKG evidence of ischemia and negative cardiac enzymes. Continue Losartan 25mg daily and Triameterene-Hctz Heart healthy/ Low salt diet No indication for vascular surgery for renal artery stenosis at this time. Per cardiology perspective, patient stable for discharge home. Patient may follow up with Dr. Liao outpatient. Nurse practitioner note has been reviewed by physician. Signing provider agrees with the documented findings, assessment, and plan of care. Objective - Vital Signs Vital signs: Vital Signs Temp 98.3 F 10/26/21 07:00 Pulse 104 H 10/26/21 07:00 Resp 16 10/26/21 07:00 BP 136/90 10/26/21 07:00 Pulse Ox 96 10/26/21 07:00 Intake & Output 10/25/21 10/26/21 10/26/21 18:59 06:59 18:59 Other: Voiding Method Toilet # Voids 3 2 - Labs CBC & Chem 7: 10/24/21 15:30 10/24/21 15:30 Labs: Abnormal Lab Results - Last 24 Hours (Table) 10/24/21 Range/Units 15:30 Triglycerides 184.00 H (0.00-149.00) mg/dL Cholesterol 228.00 H (0.00-200.00) mg/dL HDL Cholesterol 61.30 H (40.00-60.00) mg/dL
--- NOTE | 2021-10-26 09:04 | P.DS ---
Providers Date of admission: 10/24/21 17:07 Expected date of discharge: 10/26/21 Attending physician: Terry Armstrong MD Consults: 10/24/21 17:07 Consult Physician Urgent Consulting Provider: Sohail Liao Consult Reason/Comments: cp Do you want consulting provider notified?: Yes Primary care physician: Sangeetha Young [facility] Course: Discharge Diagnosis: Chest pain Hypertensive urgency, patient to continue daily medication regimen with Maxzide and was started on losartan 25 mg daily Hyperlipidemia, started on atorvastatin 40 mg nightly Hospital Course: Patient is a very pleasant 46-year-old female with a past medical history of bariatric surgery with laparoscopic band placed in 2008 and bipolar disorder. She presented to the emergency department with a chief complaint of chest pain. Patient reports experiencing intermittent chest pain/discomfort beginning 3 days ago. She describes this pain as a midsternal pain/tightness that worsens with exertion accompanied by shortness of breath with exertion and palpitations. She denies experiencing any fevers, chills, dizziness, lightheadedness, headache, shortness of breath at rest, cough or congestion, abdominal pain, nausea, vomiting, or experiencing any numbness/tingling/weakness/swelling in her extremities. In the emergency department patient underwent full evaluation. EKG revealed normal sinus rhythm at 87 bpm with no noted T-wave or ST abnormalities. Chest x-ray was negative for acute cardiopulmonary process. CBC revealed mild leukocytosis with WBC count of 13.9 and CMP was unremarkable. D- dimer negative at 0.40 and troponin 0.020. Patient was found to be significantly hypertensive with blood pressure 173/125 and 184/117. Patient was admitted under our services with consultation to cardiology. Troponins were trended with initial troponin of 0.020, followed by less than 0.012 and less than 0.012. Adjustments were made to blood pressure medications, in addition to Maxzide patient was started on losartan 25 mg daily. She underwent a renal artery ultrasound which was concerning for left renal artery stenosis and revealed a subtle isoechoic area mid right kidney measuring 3.5 x 2.8 x 3.0 cm. CTA abdomen and pelvis then completed and reviewed by vascular surgeon Dr. [place], renal artery stenosis and renal mass ruled out. Lipid profile did reveal an elevated triglyceride level of 184 and elevated total cholesterol 228. Patient started on atorvastatin 40 mg nightly. Blood pressure is much better controlled. Patient reports full resolution of chest pain and is medically stable for discharge at this time. Patient to follow up outpatient with PCP and cardiology. Physical exam: Vital signs reviewed and stable. General: Nontoxic, no distress and appears stated age. Derm: Skin warm and dry, normal coloration for ethnicity. Head: Atraumatic, normocephalic and symmetric. Eyes: EOMs intact, no lid lag, and anicteric sclera Mouth: no lip lesions, mucus membranes moist Cardiovascular: regular rate and rhythm with normal S1S2, no murmur, positive posterior tibial pulses bilaterally, and cap refill < 2 seconds. Lungs: Respirations even, regular, and unlabored on room air. Lungs CTA bilaterally, no rhonchi, no rales, no wheezing, and no accessory muscle usage. Abdominal: soft, nontender to palpation, no guarding, no appreciable organomegaly Ext: ROM intact. No gross muscle atrophy, no edema, no contractures Neuro: Speech clear, face symmetrical and CN II-XII grossly intact with no noted focal neuro deficits Psych: Alert and oriented to person, place, time, and situation. Appropriate and pleasant affect. A total of 34 minutes of time were spent preparing this complex discharge summary. I reviewed the documentation as provided by the SHAKA above, who is the original author of this note. I agree with the documented assessment and plan, with the following changes: none Patient Condition at Discharge: Stable Plan - Discharge Summary New Discharge Prescriptions: New Losartan [Cozaar] 25 mg PO DAILY 30 Days #30 tab Atorvastatin [Lipitor] 40 mg PO HS 30 Days #30 tab Continue Triamterene-Hctz 37.5-25Mg [Maxzide 37.5-25] 1 tab PO DAILY Acetaminophen/Diphenhydramine [Tylenol PM 500-25mg] 2 tab PO HS Discharge Medication List Acetaminophen/Diphenhydramine [Tylenol PM 500-25mg] 2 tab PO HS 10/24/21 [History] Triamterene-Hctz 37.5-25Mg [Maxzide 37.5-25] 1 tab PO DAILY 10/24/21 [History] Atorvastatin [Lipitor] 40 mg PO HS 30 Days #30 tab 10/26/21 [Rx] Losartan [Cozaar] 25 mg PO DAILY 30 Days #30 tab 10/26/21 [Rx] Follow up Appointment(s)/Referral(s): Tamia Vivas MD [Primary Care Provider] - 1-2 days Sohail Liao MD [STAFF PHYSICIAN] - 2 Weeks (will call pt to schedule appointment) Patient Instructions/Handouts: Heart Healthy Diet (GEN), DASH Eating Plan (GEN) Activity/Diet/Wound Care/Special Instructions: Activity: As tolerated. Take breaks as needed. Diet: Heart healthy and carb consistent diet. Avoid salts, or foods with hidden salts such as canned or boxed foods and frozen dinners. Extra salt makes your heart work harder and traps the fluid in your body for longer. Special Instructions: Take all of your medications as directed and remember to keep all of your doctor's appointments and follow-up as needed. Thank you for allowing us to participate in your care, it was truly a pleasure having you for our patient!!! Discharge Disposition: HOME SELF-CARE
== END 2021-10-26 09:36 | disposition home or self-care (01) ==
LOC: EC 14:39 → 6NMEDSUR 17:07
PROVIDERS: ADMIT Internal Medicine; ATTEND Internal Medicine
DX: R07.89 Other chest pain (principal); I16.0 Hypertensive urgency; R06.09 Other forms of dyspnea; D72.829 Elevated white blood cell count, unspecified; Z98.84 Bariatric surgery status; Z20.822 Contact with and (suspected) exposure to COVID-19; F31.9 Bipolar disorder, unspecified; E78.5 Hyperlipidemia, unspecified; Z82.49 Family history of ischemic heart disease and other diseases of the circulatory system; Z83.3 Family history of diabetes mellitus; Z80.9 Family history of malignant neoplasm, unspecified; Z80.8 Family history of malignant neoplasm of other organs or systems; Z79.899 Other long term (current) drug therapy; Z79.52 Long term (current) use of systemic steroids; Z98.891 History of uterine scar from previous surgery
CPT/HCPCS: 96372 ×3; 96376; 96374; 99285; 36415; 93005; 93306; 85379; 83880; 80061; 80053; 82150; 83690; 83735; 84484; 85025; 85610; 85730; 87635; 71046; 93975; 74174; G0378 ×3; J2405; Q9967; J1644 ×3

== ENCOUNTER → 2021-11-21 | Day surgery (SDC) | payer OTHER ==
[~2021-11-21] MED LIST changes: -DEXAMETHASONE SOD PHOSPHATE 10 MG/ML 1 ML VIAL IV ONE; -HEPARIN SODIUM,PORCINE 5,000 UNIT/ML 1 ML VIAL SQ ONE; +IOPAMIDOL M200 10 ML VIAL ONE; +IV FLUID CONTINUATION 1,000 ML IV ONE; +LACTATED RINGERS 1,000 ML IV ONE; +LIDOCAINE 1% (10MG/ML) FOR IV START INTRADERMA PRN; +MIDAZOLAM 2 MG/2 ML VIAL ONE; -MORPHINE SULFATE 2 MG/ML SYRINGE IV PRN; -ONDANSETRON 4 MG/2 ML VIAL IVP ONE; -ONDANSETRON 4 MG/2 ML VIAL IVP PRN; +TRIAMCINOLONE ACETONIDE 40 MG/ML 1 ML VIAL ONE; -ceFAZolin IN SWFI 2 GM/20 ML SYRINGE IVP ONE; +fentaNYL (PF) 50 MCG/ML 2 ML AMP ONE
[2021-11-21 07:04] VITALS: TEMP 97.8
--- NOTE | 2021-11-21 07:33 | P.PCN ---
Date of Procedure: 11/21/21 Description of Procedure: PREOPERATIVE DIAGNOSIS: Sacroiliac joint dysfunction POSTOPERATIVE DIAGNOSIS: Sacroiliac joint dysfunction. PROCEDURES: 1. Bilateral Sacroiliac joint steroid injection #1 out of 2 2. Sacroiliac joint arthrogram. SURGEON: Willi Puri ANESTHESIA: Local and IV sedation : Midazolam and fentanyl. EBL: None. Specimen removed: None Fluoroscopic image: saved to electronic medical records. PROCEDURE INDICATIONS: This patient with a history of chronic low back pain, and sacroiliac joint dysfunction. Patient tried conservative therapy. Came here for intervention management. PROCEDURE DESCRIPTION: The patient was seen and identified in the preoperative area. Risks, benefits, complications, and alternatives were discussed with the patient. The patient agreed to proceed with the procedure and signed the consent. IV was started, and vital signs were stable. Patient was taken to the OR and time out was completed. The patient was placed in the prone position on procedure table and a pillow was placed under the abdomen to reduce lumbar lordosis. The lumbosacral area was prepped and draped in the usual sterile fashion. Critical pause was taken. Vital signs were closely monitored during the procedure. For the right side, the fluoroscopic camera was placed in left oblique view and right SI joint lower pole was identified. Skin entry point was infiltrated with 1% lidocaine and 22-gauge 3.5 inch spinal needle was introduced into the inferior one-third of SI joint and after penetrating into the joint arthrogram was done. 0.5 ml of [id number] contrast was injected after negative aspiration for blood, and air and negative for paresthesia. Good spread of the contrast into the SI joint has been seen. Then again after negative aspiration of spinal fluid and blood and negative for neurological symptoms, 3 mL of a solution containing total 2 mL of 1% preservative-free lidocaine mixed with 40 mg of Kenalog was injected. Needle was withdrawn intact. The entire procedure was repeated on the left side as above. Needle was withdrawn intact. Skin was cleansed, and bandages were applied. COMPLICATIONS: None. DISPOSITION / PLANS: The patient was placed in a supine position and transferred to the recovery area in a stable condition for observation and was discharged from the recovery room after meeting discharge criteria. Home discharge instructions given to the patient by the staff. The patient was reexamined prior to discharge. The patient will schedule for follow-up visit with the pain clinic in 4 weeks duration.
[2021-11-21 07:39] VITALS: RESP 16
[2021-11-21 07:53] VITALS: BP 113/76; PULSE 60
--- NOTE | 2021-11-21 08:33 | FL ---
EXAMINATION TYPE: FL guided pain mgmt statistic DATE OF EXAM: 11/21/2021 CLINICAL HISTORY: Bilateral SI Joint pain. TECHNIQUE: Fluoroscopy. COMPARISON: None. FINDINGS: Fluoroscopic guidance was provided during pain relief procedure performed by Dr. Puri. A total of 3 seconds of fluoroscopic time was utilized during the procedure and two spot images are acquired. Images acquired shows needle localization at the inferior aspect bilateral sacroiliac join ts. IMPRESSION: As Above.
== END | disposition home or self-care (01) ==
LOC: ORPAIN 06:41
DX: M53.3 Sacrococcygeal disorders, not elsewhere classified (principal)
CPT/HCPCS: 81025; G0260; J2250; J3301; J3010; Q9966; 99152

== ENCOUNTER → 2022-01-03 | Outpatient (CLI) | payer OTHER ==
[2022-01-03 12:48] VITALS: BP 133/99; PULSE 90; RESP 18; TEMP 98.4
--- NOTE | 2022-01-03 12:54 | P.PAINPG ---
Objective - Vital Signs Vital signs: Vital Signs Temp 98.4 F 01/03/22 12:44 Pulse 90 01/03/22 12:44 Resp 18 01/03/22 12:44 BP 133/99 01/03/22 12:44 Pulse Ox 97 01/03/22 12:44 FiO2 Intake & Output 01/02/22 01/03/22 01/03/22 18:59 06:59 18:59 Weight 101.605 kg PQRS Measure Charge Sheet Mode of Arrival: Ambulatory Comment: A 46 yr old female with a history of severe and chronic low back pain secondar y to lumbar degenerative disc diseases and lumbar spondylosis with facet arthropathy presents today for evaluation status post BL SI joint injection 1. She states she expressed 85% pain relief for the last 6 weeks status post procedure. Pain level is currently at 2 out of 10 in intensity, localized in the lower lumbar spine and tailbone region, right greater than left, of a sharp achy character but escalates as high as 6 out of 10 in intensity with inactivity. Pain is alleviated with medications (Aleve OTC), injections, home exercise regimen, repositioning and rest. Interventional pain procedures completed include BL SI injection 1 Patient is currently on Aleve OTC Patient denies any side effects of the medication(s), denies excessive drowsiness or sleepiness, denies suicidal ideation and reports that the current pain medication is helping to control the pain and improve activities of daily living. Patient denies any motor or sensory deficits. Patient denies any fever or night sweats, denies any change in the bowel movements or urination. Physical Examination: -Constitutional: Cooperative. Not in acute distress . -HEENT: Neck is supple. No lymphadenopathy. No thyromegaly. Normal thyroid size. Eyes: No ptosis , no icterus, no photophobia. ENT: No auditory deficits. Normal oropharynx. No Thrush. - Respiratory: Chest clear to auscultations bilaterally. No wheezing. No rhonchi. - Cardiovascular: Regular rate and rhythm. S1 / S2 , no S3 , no S4. - Gastrointestinal: Abdomen soft no tenderness. Bowel sounds positive in all four quadrants. No organomegaly. - Genitourinary: Deferred. - Neurologic: Cranial nerve II to XII intact. No focal neurological deficits. - Psychatric: Alert & oriented x 3. Matching mood & appropriate affect. Judgment and insight intact. - Lymphatic: No Lymphadenopathy. - Musculoskeletal: Cervical spine: Muscle bulk/ tone/ strength in the bilateral upper extremities normal Vertebral body tenderness to palpation over Facet loading test positive Thoracic spine Muscle bulk / tone/ strength in the bilateral paraspinal muscles normal Vertebral body tender to palpation over Facet loading test positive Lumbar spine: Motor bulk/ tone/ strength lower extremities , thigh and legs : 5/5 Deep tendon reflexes : Normal Knee Jerk. Normal Ankle Jerk . Vertebral body tenderness to palpation over Lumbar Facet Loading Test positive Straight Leg Raise: positive at 30 degrees right side/ left side Gaenslen's Test positive R>L Sacral spine : Severe tenderness over the Sacroiliac joint: right side / left side Range of motion: Flexion of the lumbar spine <60 degrees Range of motion: Extension of the lumbar spine <20 degrees Gaenslen's Test positive Ellis's Test positive Grey test: positive right side / left side Thigh Thrust Test Sacral Thrust Test R>L Assessment and plan: Chronic low back pain secondary to lumbar degenerative disc disease , lumbar spondylosis with facet arthropathy without myelopathy Mentation of BL SI joint injection #2. May need a series of injections, up to every 3 months, for optimal pain relief. Risks, benefits of procedure discussed and pt verbalized understanding. Denies anticoagulant use or medical history of diabetes. All patient questions answered MAPS reviewed and it was appropriate. I have spent 31 minutes on patient care today. Dr Marrero was available by phone for the evaluation of this patient. The time was used to review the medical records including relevant urine studies and Prescription history (MAPs), review of the available imaging, evaluation and examination of the patient, coordination of care with the medical staff and if applicable referring physicians, as well as creation of the medical record - Pain Location Bilateral Hip Non-Pharmacological Interventions: Home Exercise, Position/Reposition, Stretching Pharmacological Interventions: PRN Medication PQRS Narrative: Smoking Status Never smoker Blood Pressure 133/99 Pain Intensity [Bilateral Hip] 2 Scale Used Numeric (1 - 10) Hx Alcohol Use (MH) No Home Medications: Ambulatory Orders Acetaminophen/Diphenhydramine [Tylenol PM 500-25mg] 2 tab PO HS 10/24/21 Triamterene-Hctz 37.5-25Mg [Maxzide 37.5-25] 1 tab PO DAILY 10/24/21 Atorvastatin [Lipitor] 40 mg PO HS 30 Days #30 tab 10/26/21 Losartan [Cozaar] 25 mg PO DAILY 30 Days #30 tab 10/26/21 Controlled Substance Measures - Controlled Substance Measures Is patient prescribed a controlled substance at discharge?: No
== END | disposition home or self-care (01) ==
LOC: PNWHC3 12:29
PROVIDERS: ATTEND Specialist
DX: M51.36 Other intervertebral disc degeneration, lumbar region (principal); M47.896 Other spondylosis, lumbar region; M46.93 Unspecified inflammatory spondylopathy, cervicothoracic region
CPT/HCPCS: 99211

== ENCOUNTER 2022-02-08 06:19 | Day surgery (SDC) | payer OTHER ==
[2022-02-07 12:04] VITALS: BMI 35.0
[2022-02-08 06:36] VITALS: TEMP 98.1
[2022-02-08] MEDS ORDERED: LACTATED RINGERS 1,000 ML IV SCH (06:45)
[2022-02-08] MEDS ORDERED: fentaNYL (PF) 50 MCG/ML 2 ML AMP ONE (06:47)
[2022-02-08] MEDS ORDERED: MIDAZOLAM 2 MG/2 ML VIAL ONE (06:47)
[2022-02-08] MEDS ORDERED: IOPAMIDOL M200 10 ML VIAL ONE (06:47)
[2022-02-08] MEDS ORDERED: DEXAMETHASONE SOD PHOSPHATE 10 MG/ML 1 ML VIAL ONE (06:47)
[2022-02-08] MEDS ORDERED: ROPIVACAINE 5MG/ML 20ML VIAL ONE (06:47)
[2022-02-08] MEDS ORDERED: methylPREDNISolone ACETATE 40 MG/ML 1 ML VIAL ONE (06:48)
--- NOTE | 2022-02-08 06:52 | P.PCN ---
Date of Procedure: 02/08/22 Procedure(s) Performed: Sacroiliac joint injection bilateral Description of Procedure: Procedure: Sacroiliac joint injection bilateral Preoperative diagnosis: Sacroiliitis Postoperative diagnosis: Sacroiliitis Imaging: Fluoroscopy was used, images where saved to the medical record Complications: none Anesthesia: 1% lidocaine 5cc Versed and fentanyl sedation Description of the procedure: procedure risk and benefits discussed with the patient, including but not limited, risk of infection and bleeding, and allergic reaction to the medication and incomplete pain relief. Patient agreed and signed consent. Patient was taken to the room and placed in a prone position. Chlorhexidine was used to cleanse the skin. Under sterile conditions patient skin was anesthetized 1% lidocaine. Subcutaneous tissues were also anesthetized with a total 5 mL of 1% lidocaine. After that, a 22-gauge spinal needle was advanced through the anesthetized location under fluoroscopic guidance. Needle was advanced into the inferior portion of the sacroiliac joint. IV contrast was used to confirm spread within the joint. After adequate spread was achieved, 2.5 ML's of 0.5% ropivacaine with 40 mg of depomedrol was injected into the joint (steroid split between both sides if bilateral). Patient tolerated the procedure well. Sent to the recovery room in stable condition. Patient will follow up as needed
[2022-02-08] MEDS ORDERED: IV FLUID CONTINUATION 1,000 ML IV ONE (07:16)
[2022-02-08 07:21] VITALS: RESP 16
--- NOTE | 2022-02-08 07:26 | FL ---
Fluoroscopy History: BILAT SI INJ BILAT SI INJ. [address] Cardoza. 2 images.
[2022-02-08 07:37] VITALS: BP 133/79; PULSE 68
== END 2022-02-08 07:40 | disposition home or self-care (01) ==
LOC: ORPAIN 06:19
PROVIDERS: ATTEND Hospitalist
DX: M46.1 Sacroiliitis, not elsewhere classified (principal); Z79.899 Other long term (current) drug therapy; Z79.1 Long term (current) use of non-steroidal anti-inflammatories (NSAID)
CPT/HCPCS: 81025; J2250; J1100; J3010; Q9966; J2795; G0260; 99152

== ENCOUNTER → 2022-04-12 | Outpatient (CLI) | payer OTHER ==
[2022-04-12 10:28] VITALS: BP 132/86; PULSE 81; RESP 18; TEMP 97.9
--- NOTE | 2022-04-12 13:34 | P.PAINPG ---
PQRS Measure Charge Sheet Comment: A 47 yr old female with a history of severe and chronic low back pain secondary to lumbar degenerative disc diseases and lumbar spondylosis with facet arthropathy without myelopathy presents today for evaluation of BL SI injection. Pt states she experienced 100% pain relief x 2 wks s/p procedure, but then she moved a dresser and triggered lower back/ tailbone pain again. Pain level is currently at 4/10 in intensity, constant, throbbing in character which changes to sharp/ shooting towards the L glute by evening. Pain is provoked as high as 8/10 in intensity by bending /lifting/ moving furniture. Pain is alleviated with medications (OTC), repositioning and rest. Interventional pain procedures completed include BL SI injection Patient is currently on OTC meds Patient denies any side effects of the medication(s), denies excessive drowsiness or sleepiness, denies suicidal ideation and reports that the current pain medication is helping to control the pain and improve activities of daily living. Patient denies any motor or sensory deficits. Patient denies any fever or night sweats, denies any change in the bowel movements or urination. Physical Examination: -Constitutional: Cooperative. Not in acute distress . - Neurologic: Cranial nerve II to XII intact. No focal neurological deficits. - Psychatric: Alert & oriented x 3. Matching mood & appropriate affect. Judgment and insight intact. - Musculoskeletal: Cervical spine: Muscle bulk/ tone/ strength in the bilateral upper extremities normal Vertebral body tenderness to palpation over Spurling test positive Distraction test positive Facet loading test positive Thoracic spine Muscle bulk / tone/ strength in the bilateral paraspinal muscles normal Vertebral body tender to palpation over Facet loading test positive Lumbar spine: Motor bulk/ tone/ strength lower extremities , thigh and legs : 5/5 Deep tendon reflexes : Normal Knee Jerk. Normal Ankle Jerk . Vertebral body tenderness to palpation over Lumbar Facet Loading Test positive Straight Leg Raise: positive at 30 degrees right side/ left side Gaenslen's Test positive Sacral spine : Severe tenderness over the Sacroiliac joint: right side / left side Range of motion: Flexion of the lumbar spine <60 degrees Range of motion: Extension of the lumbar spine <20 degrees Gaenslen's Test positive BL Grey test: positive right side < left side BL Thigh Thrust Test Sacral Thrust Test L>R Assessment and plan: Chronic low back pain secondary to lumbar degenerative disc disease , lumbar spondylosis with facet arthropathy without myelopathy Recommendation of BL SI joint injection. May need a series of injections, up to 4 within a 12 mo period, for optimal pain relief. Risks, benefits of procedure discussed and pt verbalized understanding. Denies anticoagulant use or medical history of diabetes. Chronic and current use of high-risk medication (Opioids). The patient was counseled about risk of opioid use, psychological risk associated with opioids and was orally counseled to not overuse , divert or sell medications. Pt is to store medication in a safe location. The patient is counseled against driving while using narcotic medications and also not to use alcohol or any illicit recreational drugs. Patient verbalized understanding that the lack of compliance will result in failure to renew narcotic prescription(s) as well as possible discharge from the clinic Diagnoses, prognosis and treatment options including but not limited to physical therapy, surgical interventions, interventional therapies and medication management including narcotics and adjuvant medication were discussed. All patient questions answered MAPS reviewed and it was appropriate. Prescription for Tylenol #18, prn NR I have spent less than 30 minutes on patient care today. Dr Marrero was available by phone for the evaluation of this patient. The time was used to review the medical records including relevant urine studies and Prescription history (MAPs), review of the available imaging, evaluation and examination of the patient, coordination of care with the medical staff and if applicable referring physicians, as well as creation of the medical record PQRS Narrative: Smoking Status Never smoker Hx Alcohol Use (MH) No Home Medications: Ambulatory Orders Acetaminophen/Diphenhydramine [Tylenol PM 500-25mg] 2 tab PO HS 10/24/21 Triamterene-Hctz 37.5-25Mg [Maxzide 37.5-25] 1 tab PO DAILY 10/24/21 Atorvastatin [Lipitor] 40 mg PO HS 30 Days #30 tab 10/26/21 Losartan [Cozaar] 25 mg PO DAILY 30 Days #30 tab 10/26/21 Acetaminophen-Codeine 300-30mg [Tylenol w/codeine #3] 1 tab PO Q4H PRN 3 Days #1 8 tablet 04/12/22 Controlled Substance Measures - Controlled Substance Measures Is patient prescribed a controlled substance at discharge?: Yes When asked, does pt state using other controlled substances?: No If prescribed controlled substance>3 days was MAPS reviewed?: Yes If Rx opioid, was Start Talking consent form obtained?: Yes If opioid is for acute pain is fill amount 7 days or less?: Yes Was information provided regarding opioid addiction?: Yes
== END | disposition home or self-care (01) ==
LOC: PNWHC3 09:25
PROVIDERS: ATTEND Specialist
DX: M47.896 Other spondylosis, lumbar region (principal); M51.36 Other intervertebral disc degeneration, lumbar region
CPT/HCPCS: 99211

== ENCOUNTER 2022-05-10 12:50 | Day surgery (SDC) | payer OTHER ==
[2022-05-09 11:10] VITALS: BMI 33.5
[2022-05-10 13:48] VITALS: TEMP 97.6
[2022-05-10] MEDS ORDERED: LACTATED RINGERS 1,000 ML IV ONE ×2 (13:54)
[2022-05-10] MEDS ORDERED: ROPIVACAINE 5 MG/ML 20 ML AMPULE ONE (14:13)
[2022-05-10] MEDS ORDERED: MIDAZOLAM 2 MG/2 ML VIAL ONE (14:13)
[2022-05-10] MEDS ORDERED: TRIAMCINOLONE ACETONIDE 40 MG/ML 1 ML VIAL ONE (14:13)
[2022-05-10] MEDS ORDERED: IOPAMIDOL M200 10 ML VIAL ONE (14:13)
[2022-05-10] MEDS ORDERED: fentaNYL (PF) 50 MCG/ML 2 ML AMP ONE (14:13)
--- NOTE | 2022-05-10 14:27 | P.PCN ---
Date of Procedure: 05/10/22 Description of Procedure: Procedure(s) Performed: Sacroiliac joint injection bilateral Description of Procedure: Procedure: Sacroiliac joint injection bilateral Preoperative diagnosis: Sacroiliitis Postoperative diagnosis: Sacroiliitis Imaging: Fluoroscopy was used, images where saved to the medical record Complications: none Surgeon: Gigi Joe MD Anesthesia: 1% lidocaine 5cc with IV sedation 2mg Versed and 100mcq Fentanyl Sedation Time: 8719-8854 Description of the procedure: procedure risk and benefits discussed with the patient, including but not limited, risk of infection and bleeding, and allergic reaction to the medication and incomplete pain relief. Patient agreed and signed consent. Patient was taken to the room and placed in a prone position. Chlorhexidine was used to cleanse the skin. Under sterile conditions patient skin was anesthetized 1% lidocaine. Subcutaneous tissues were also anesthetized with a total 5 mL of 1% lidocaine. After that, a 22-gauge spinal needle was advanced through the anesthetized location under fluoroscopic guidance. Needle was advanced into the inferior p ortion of the sacroiliac joint. IV contrast was used to confirm spread within the joint. After adequate spread was achieved, 2.5 ML's of 0.5% ropivacaine with 40 mg of kenalog was injected into the joint, steroid split between both sides. Patient tolerated the procedure well. Sent to the recovery room in stable condition. Patient will follow up as needed
[2022-05-10] MEDS ORDERED: LACTATED RINGERS 1,000 ML IV SCH (14:30)
[2022-05-10] MEDS ORDERED: IV FLUID CONTINUATION 1,000 ML IV ONE (14:33)
[2022-05-10 14:40] VITALS: RESP 18
[2022-05-10 14:50] VITALS: BP 118/70; PULSE 71
--- NOTE | 2022-05-10 15:47 | FL ---
Intraoperative/procedural fluoroscopic services were provided for bilateral SI joint injection. Total fluoroscopy time is 7 seconds with a total of 2 submitted images to PACS. Please see the operative n ote for further details.
== END 2022-05-10 14:53 | disposition home or self-care (01) ==
LOC: ORPAIN 12:50
PROVIDERS: ATTEND Anesthesiology
DX: M46.1 Sacroiliitis, not elsewhere classified (principal)
CPT/HCPCS: 81025; J2250; J3301; J3010; Q9966; J2795; G0260; 99152

== ENCOUNTER 2022-12-06 09:49 | Emergency (ER) | payer OTHER ==
[2022-12-06 10:02] VITALS: BP 138/92; PULSE 68; RESP 18; TEMP 98
[2022-12-06] MEDS ORDERED: SODIUM CHLORIDE 0.9% 1,000 ML IV STA (10:39)
[2022-12-06] MEDS ORDERED: MECLIZINE 12.5 MG TAB PO STA (10:40)
[2022-12-06 11:23] LABS: Basophils % (A) 1 %; Eosinophils # (A) 0.1 k/uL (0-0.7); Eosinophils % (A) 1 %; HCT 43.2 % (34.0-46.0); HGB 14.3 gm/dL (11.4-16.0); Lymphocytes # (A) 2.5 k/uL (1.0-4.8); Lymphocytes % (A) 33 %; MCH 30.6 pg (25.0-35.0); MCHC 33.1 g/dL (31.0-37.0); MCV 92.5 fL (80.0-100.0); Mean Platelet Volume 7.8; Monocytes # (A) 0.2 k/uL (0-1.0); Monocytes % (A) 3 %; Neutrophils # (A) 4.7 k/uL (1.3-7.7); Neutrophils % (A) 61 %; Platelet Count 384 k/uL (150-450); RBC 4.67 m/uL (3.80-5.40); RDW 12.1 % (11.5-15.5); WBC 7.7 k/uL (3.8-10.6)
[2022-12-06 11:38] LABS: Appearance,Urine Clear (Clear); Bilirubin,Urine Negative (Negative); Blood,Urine Large (Negative); Color,Urine Light Yellow; Glucose,Urine (UA) Negative (Negative); Ketones,Urine Negative (Negative); Leukocyte Esterase,Urine Trace (Negative); Nitrite,Urine Negative (Negative); Protein,Urine Negative (Negative); RBC,Urine 99 /hpf (0-5); Specific Gravity,Urine 1.007 (1.001-1.035); Squamous Epithelial Cell,Urine <1 /hpf (0-4); Urobilinogen,Urine <2.0 mg/dL (<2.0); WBC,Urine 16 /hpf (0-5)
[2022-12-06 11:40] LABS: ALT 29 U/L (4-34); AST 27 U/L (14-36); African American GFR (CKD) >90 (>60 ml/min/1.73 sqM); Albumin 4.7 g/dL (3.5-5.0); Alkaline Phosphatase 72 U/L (38-126); Anion Gap 9 mmol/L; Blood Urea Nitrogen 21 mg/dL (7-17); Calcium 9.9 mg/dL (8.4-10.2); Carbon Dioxide 31 mmol/L (22-30); Chloride 99 mmol/L (98-107); Glucose 96 mg/dL (74-99); Non-African American GFR(CKD) >90 (>60 ml/min/1.73 sqM); Potassium 3.6 mmol/L (3.5-5.1); Sodium 139 mmol/L (137-145); Total Bilirubin 0.6 mg/dL (0.2-1.3); Total Protein 8.4 g/dL (6.3-8.2)
--- NOTE | 2022-12-06 11:47 | CT ---
EXAMINATION TYPE: CT brain wo con DATE OF EXAM: 12/06/2022 COMPARISON: CT brain November 30, 2011 HISTORY: dizziness CT DLP: 1031.4 mGycm. Automated Exposure Control for Dose Reduction was Utilized. TECHNIQUE: CT scan of the head is performed without contrast. FINDINGS: There is no acute intracranial hemorrhage, mass effect, or midline shift identified. The ventricles and sulci are within normal limits in size. Martines-white matter differentiation is maintain ed. No suspicious opacification of the mastoid air cells. The globes are intact and the visualized s inuses are clear. IMPRESSION: No acute intracranial hemorrhage, mass effect, or midline shift is seen. Unremarkable st udy.
--- NOTE | 2022-12-06 11:54 | ED ---
General Adult HPI - General Chief complaint: Dizziness Stated complaint: dizziness - sent by [facility] Time Seen by Provider: 12/06/22 10:22 Source: patient, RN notes reviewed Mode of arrival: ambulatory Limitations: no limitations - History of Present Illness Initial comments: 47-year-old female with no significant past medical history presents to the emergency department with a chief complaint of dizziness that started possibly 4 days ago. Patient states that she feels like the room is spinning. She denies this ever happening to her before. She is not taken anything for his symptoms. She was seen at while in our urgent care prior to arrival who recommended she be evaluated in the ED. She does report recent increased her blood pressure medications. Denies any headedness, headache, cough, chest pain, shortness of breath, nausea, vomiting. She denies any recent sick contacts. She has not taken anything for his symptoms - Related Data Home Medications Medication Instructions Recorded Confirmed Triamterene-Hctz 37.5-25Mg 1 tab PO DAILY 10/24/21 12/06/22 [Maxzide 37.5-25] Previous Rx's Medication Instructions Recorded Atorvastatin [Lipitor] 40 mg PO HS 30 Days #30 tab 10/26/21 Losartan [Cozaar] 25 mg PO DAILY 30 Days #30 tab 10/26/21 Meclizine [Antivert] 25 mg PO TID PRN #15 tab 12/06/22 Allergies Allergy/AdvReac Type Severity Reaction Status Date / Time No Known Allergies Allergy Verified 12/06/22 12:49 Review of Systems ROS Statement: Those systems with pertinent positive or pertinent negative responses have been documented in the HPI. ROS Other: All systems not noted in ROS Statement are negative. Past Medical History Past Medical History: No Reported History Additional Past Medical History / Comment(s): STATES HX OF 2 EPISODES OF INVOLUNTARY MOVEMENTS ALL OVER (2010 & 2018)- TOLD POSSIBLE CHOREA., HAS LAP BAND, EPISODES OF VOMITING. History of Any Multi-Drug Resistant Organisms: None Reported Past Surgical History: Bariatric Surgery, Section Additional Past Surgical History / Comment(s): LAP BAND-2009, PAIN CLINIC PROCEDURES Past Anesthesia/Blood Transfusion Reactions: No Reported Reaction Past Psychological History: No Psychological Hx Reported, Bipolar Smoking Status: Never smoker Past Alcohol Use History: None Reported Past Drug Use History: None Reported - Past Family History Mother Family Medical History: Hypertension Brother(s) Family Medical History: Cancer, Diabetes Mellitus Additional Family Medical History / Comment(s): HEART DISEASE Father Family Medical History: Cancer Additional Family Medical History / Comment(s): SKIN CANCER, HEART DISEASE General Exam - General Exam Comments Initial Comments: General: Alert, in no acute distress Head: atraumatic normocephalic. Eyes PERRL, EOMI intact, mucous membranes moist Respiratory: Lungs clear to auscultation bilaterally Cardiovascular: Heart rate regular rate and rhythm Abdominal: Soft without guarding or rebound Extremities: Normal inspection with full range of motion and normal capillary refill Neuroogic: alert and oriented 3, CN II-XII intact, able to ambulate with steady gait Skin: warm dry and intact with normal color Limitations: no limitations Course Vital Signs 12/06/22 09:59 Temperature 98 F Pulse Rate 68 Respiratory 18 Rate Blood Pressure 138/92 O2 Sat by Pulse 98 Oximetry - Reevaluation(s) Reevaluation #1: 12/06/22 11:53 Rounded on patient. Patient reports symptomatic relief of dizziness. Notified awaiting lab results. Reevaluation #2: 12/06/22 12:47 Patient reevaluated. Patient able to G[place] with a steady gait. Patient agreeable with the plan for discharge. EKG Findings - EKG Comments: EKG Findings:: I interpreted the following: EKG performed at 10:50 rate 55 bpm and sinus bradycardia IA interval 145, QRS duration 102, QT/QTc 449/438 Medical Decision Making - Medical Decision Making Was pt. sent in by a medical professional or institution (, PA, ST[employer]ER, urgent care, hospital, or correction...) When possible be specific @ -[No] Did you speak to anyone other than the patient for history (EMS, parent, family, police, friend...)? What history was obtained from this source @ -[No] Did you review nursing and triage notes (agree or disagree)? Why? @ -[I reviewed and agree with nursing and triage notes] Were old charts reviewed (outside hosp., previous admission, EMS record, old EKG, old radiological studies, urgent care reports/EKG's, correction records)? Report findings @ -[No old charts were reviewed] Differential Diagnosis (chest pain, altered mental status, abdominal pain women, abdominal pain men, vaginal bleeding, weakness, fever, dyspnea, syncope, headache, dizziness, GI bleed, back pain, seizure, CVA, palpatations, mental health, musculoskeletal)? @ -[not applicable] EKG interpreted by me (3pts min.). @ -[As above] X-rays interpreted by me (1pt min.). @ -[None done] CT interpreted by me (1pt min.). @ -[None done] U/S interpreted by me (1pt. min.). @ -[None done] What testing was considered but not performed or refused? (CT, X-rays, U/S, labs)? Why? @ -[None] What meds were considered but not given or refused? Why? @ -[None] Did you discuss the management of the patient with other professionals (professionals i.e. , PA, ST[employer] S[employer] MAKER, lab, RT, psych nurse, social worker health services, boot and shoe repairman, teacher, safety instruction police officer, casework manager)? Give summary @ -[No] Was smoking cessation discussed for >3mins.? @ -[No] Was critical care preformed (if so, how long)? @ -[No] Were there social determinants of health that impacted care today? How? (Homelessness, low income, unemployed, alcoholism, drug addiction, transportation, low edu. Level, literacy, decrease access to med. care, care home, rehab)? @ -[No] Was there de-escalation of care discussed even if they declined (Discuss DNR or withdrawal of care, Hospice)? DNR status @ -[No] What co-morbidities impacted this encounter? (DM, HTN, Smoking, COPD, CAD, Cancer, CVA, ARF, Chemo, Hep., AIDS, mental health diagnosis, sleep apnea, morbid obesity)? @ -[None] Was patient admitted / discharged? Hospital course, mention meds given and route, prescriptions, significant lab abnormalities, going to OR and other pertinent info. @ - -Discharged. This is a 47-year-old female who presents to the emergency department with dizziness.. Patient had a thorough history and physical exam performed while in the ED. Physical exam reveals heart rate regular rate and rhythm, lungs clear to auscultation bilaterally abdomen is soft and nontender.. Pt able to ambulate with a steady gait. There are no focal neuro deficits noted on physical exam Patient had lab work and imaging performed on the ED which were essentially unremarkable. Patient was given 1 L of IV fluids and meclizine with symptomatic relief. I discussed the results in detail with the patient verbalized understanding and all questions were addressed. He was encouraged to follow up with his PCP in 1-2 days. Return precautions were discussed at length. Patient discharged in stable condition. Case discussed with TOÑO Mane who agrees with plan of care Undiagnosed new problem with uncertain prognosis? @ -[No] Drug Therapy requiring intensive monitoring for toxicity (Heparin, Nitro, Insulin, Cardizem)? @ -[No] Were any procedures done? @ -[No] Diagnosis/symptom? @ -dizziness Acute, or Chronic, or Acute on Chronic? @ -acute Uncomplicated (without systemic symptoms) or Complicated (systemic symptoms)? @ -uncomplicated Side effects of treatment? @ -[No] Exacerbation, Progression, or Severe Exacerbation? @ -[No] Poses a threat to life or bodily function? How? (Chest pain, USA, CA, pneumonia, PE, COPD, DKA, ARF, appy, cholecystitis, CVA, Diverticulitis, Homicidal, Suicidal, threat to staff... and all critical care pts) @ -low likelihood - Lab Data Result diagrams: 12/06/22 11:01 12/06/22 11: Lab Results 12/06/22 12/06/22 12/06/22 Range/Units 11:01 11: 11:01 WBC 7.7 (3.8-10.6) k/uL RBC 4.67 (3.80-5.40) m/uL Hgb 14.3 (11.4-16.0) gm/dL Hct 43.2 (34.0-46.0) % MCV 92.5 (80.0-100.0) fL MCH 30.6 (25.0-35.0) pg MCHC 33.1 (31.0-37.0) g/dL RDW 12.1 (11.5-15.5) % Plt Count 384 (150-450) k/uL MPV 7.8 Neutrophils % 61 % Lymphocytes % 33 % Monocytes % 3 % Eosinophils % 1 % Basophils % 1 % Neutrophils # 4.7 (1.3-7.7) k/uL Lymphocytes # 2.5 (1.0-4.8) k/uL Monocytes # 0.2 (0-1.0) k/uL Eosinophils # 0.1 (0-0.7) k/uL Basophils # 0.0 (0-0.2) k/uL PT 10.6 (9.0-12.0) sec INR 1.0 (<1.2) APTT 22.7 (22.0-30.0) sec D-Dimer 0.34 (<0.60) mg/L FEU Sodium (137-145) mmol/L Potassium (3.5-5.1) mmol/L Chloride (98-107) mmol/L Carbon Dioxide (22-30) mmol/L Anion Gap mmol/L BUN (7-17) mg/dL Creatinine (0.52-1.04) mg/dL Est GFR (CKD-EPI)AfAm (>60 ml/min/1.73 sqM) Est GFR (CKD-EPI)NonAf (>60 ml/min/1.73 sqM) Glucose (74-99) mg/dL Calcium (8.4-10.2) mg/dL Total Bilirubin (0.2-1.3) mg/dL AST (14-36) U/L ALT (4-34) U/L Alkaline Phosphatase (38-126) U/L Troponin I (0.000-0.034) ng/mL Total Protein (6.3-8.2) g/dL Albumin (3.5-5.0) g/dL Urine Color Light Yellow Urine Appearance Clear (Clear) Urine pH 8.0 (5.0-8.0) Ur Specific Malone 1.007 (1.001-1.035) Urine Protein Negative (Negative) Urine Glucose (UA) Negative (Negative) Urine Ketones Negative (Negative) Urine Blood Large H (Negative) Urine Nitrite Negative (Negative) Urine Bilirubin Negative (Negative) Urine Urobilinogen <2.0 (<2.0) mg/dL Ur Leukocyte Esterase Trace H (Negative) Urine RBC 99 H (0-5) /hpf Urine WBC 16 H (0-5) /hpf Ur Squamous Epith Cells <1 (0-4) /hpf Urine HCG, Qual (Not Detectd) 12/06/22 12/06/22 12/06/22 Range/Units 11:01 11:01 11:01 WBC (3.8-10.6) k/uL RBC (3.80-5.40) m/uL Hgb (11.4-16.0) gm/dL Hct (34.0-46.0) % MCV (80.0-100.0) fL MCH (25.0-35.0) pg MCHC (31.0-37.0) g/dL RDW (11.5-15.5) % Plt Count (150-450) k/uL MPV Neutrophils % % Lymphocytes % % Monocytes % % Eosinophils % % Basophils % % Neutrophils # (1.3-7.7) k/uL Lymphocytes # (1.0-4.8) k/uL Monocytes # (0-1.0) k/uL Eosinophils # (0-0.7) k/uL Basophils # (0-0.2) k/uL PT (9.0-12.0) sec INR (<1.2) APTT (22.0-30.0) sec D-Dimer (<0.60) mg/L FEU Sodium 139 (137-145) mmol/L Potassium 3.6 (3.5-5.1) mmol/L Chloride 99 (98-107) mmol/L Carbon Dioxide 31 H (22-30) mmol/L Anion Gap 9 mmol/L BUN 21 H (7-17) mg/dL Creatinine 0.68 (0.52-1.04) mg/dL Est GFR (CKD-EPI)AfAm >90 (>60 ml/min/1.73 sqM) Est GFR (CKD-EPI)NonAf >90 (>60 ml/min/1.73 sqM) Glucose 96 (74-99) mg/dL Calcium 9.9 (8.4-10.2) mg/dL Total Bilirubin 0.6 (0.2-1.3) mg/dL AST 27 (14-36) U/L ALT 29 (4-34) U/L Alkaline Phosphatase 72 (38-126) U/L Troponin I <0.012 (0.000-0.034) ng/mL Total Protein 8.4 H (6.3-8.2) g/dL Albumin 4.7 (3.5-5.0) g/dL Urine Color Urine Appearance (Clear) Urine pH (5.0-8.0) Ur Specific Malone (1.001-1.035) Urine Protein (Negative) Urine Glucose (UA) (Negative) Urine Ketones (Negative) Urine Blood (Negative) Urine Nitrite (Negative) Urine Bilirubin (Negative) Urine Urobilinogen (<2.0) mg/dL Ur Leukocyte Esterase (Negative) Urine RBC (0-5) /hpf Urine WBC (0-5) /hpf Ur Squamous Epith Cells (0-4) /hpf Urine HCG, Qual Not Detected (Not Detectd) Disposition Clinical Impression: Dizziness Disposition: HOME SELF-CARE Condition: Stable Instructions (If sedation given, give patient instructions): Dizziness (ED) Additional Instructions: Please return to the nearest emergency department if symptoms worsen or persist Prescriptions: Meclizine [Antivert] 25 mg PO TID PRN #15 tab PRN Reason: Vertigo Is patient prescribed a controlled substance at d/c from ED?: No Referrals: Tamia Vivas MD [Primary Care Provider] - 1-2 days Amanuel Armenta MD [STAFF PHYSICIAN] - 1-2 days Time of Disposition: 12:28
[2022-12-06 11:55] LABS: Partial Thromboplastin Time 22.7 sec (22.0-30.0); Prothrombin Time 10.6 sec (9.0-12.0)
--- NOTE | 2022-12-06 11:55 | XR ---
EXAMINATION TYPE: XR chest 2V DATE OF EXAM: 12/06/2022 COMPARISON: 10/24/2021 HISTORY: 47-year-old female dizziness and chest pain TECHNIQUE: PA and lateral views FINDINGS: The cardiomediastinal silhouette, aorta, and pulmonary vasculature are within normal limits. Some str alex atelectasis in the lower lungs. Otherwise, lungs and pleural spaces are clear. IMPRESSION: No acute cardiopulmonary process.
== END 2022-12-06 13:02 | disposition home or self-care (01) ==
LOC: EC 09:49
DX: R42 Dizziness and giddiness (principal)
CPT/HCPCS: 36415; 70450; 71046; 80053; 81001; 81025; 84484; 85025; 85379; 85610; 85730; 93005; 96360; 99284

== ENCOUNTER 2023-09-04 10:13 | Emergency (ER) | payer OTHER ==
[2023-09-04 10:43] VITALS: TEMP 98
--- NOTE | 2023-09-04 10:45 | ED ---
General Adult HPI - General Chief complaint: Syncope Stated complaint: Dizziness, weakness, chest pain Time Seen by Provider: 09/04/23 10:25 Source: patient, RN notes reviewed Mode of arrival: ambulatory Limitations: no limitations - History of Present Illness Initial comments: 48-year-old female presents emergency department chief complaint of near sync opal episode. Patient states she has been having some fluttering in her chest throughout the morning states that she is standing there and states that she became lightheaded and fell like she was going to pass out so she lowered herself to the ground. She states that there was no fall loss conscious. Patient states that she has no current chest pain shortness of breath headache or dizziness no leg pain or leg swelling states she is never passed out before denies any change in oral intake. - Related Data Home Medications Medication Instructions Recorded Confirmed Triamterene-Hctz 37.5-25Mg 1 tab PO DAILY 10/24/21 12/06/22 [Maxzide 37.5-25] Previous Rx's Medication Instructions Recorded Atorvastatin [Lipitor] 40 mg PO HS 30 Days #30 tab 10/26/21 Losartan [Cozaar] 25 mg PO DAILY 30 Days #30 tab 10/26/21 Meclizine [Antivert] 25 mg PO TID PRN #15 tab 12/06/22 Allergies Allergy/AdvReac Type Severity Reaction Status Date / Time No Known Allergies Allergy Verified 09/04/23 10:20 Review of Systems ROS Statement: Those systems with pertinent positive or pertinent negative responses have been documented in the HPI. ROS Other: All systems not noted in ROS Statement are negative. Past Medical History Past Medical History: No Reported History Additional Past Medical History / Comment(s): STATES HX OF 2 EPISODES OF INVOLUNTARY MOVEMENTS ALL OVER (2010 & 2017)- TOLD POSSIBLE CHOREA., HAS LAP BAND, EPISODES OF VOMITING. History of Any Multi-Drug Resistant Organisms: None Reported Past Surgical History: Bariatric Surgery, Section Additional Past Surgical History / Comment(s): LAP BAND-2009, PAIN CLINIC PROCEDURES Past Anesthesia/Blood Transfusion Reactions: No Reported Reaction Past Psychological History: No Psychological Hx Reported, Bipolar Smoking Status: Never smoker Past Alcohol Use History: None Reported, Occasional Past Drug Use History: None Reported - Past Family History Mother Family Medical History: Hypertension Brother(s) Family Medical History: Cancer, Diabetes Mellitus Additional Family Medical History / Comment(s): HEART DISEASE Father Family Medical History: Cancer Additional Family Medical History / Comment(s): SKIN CANCER, HEART DISEASE General Exam Limitations: no limitations General appearance: alert, in no apparent distress Head exam: Present: atraumatic, normocephalic, normal inspection Eye exam: Present: normal appearance, PERRL, EOMI. Absent: scleral icterus, conjunctival injection, periorbital swelling ENT exam: Present: normal exam, mucous membranes moist Neck exam: Present: normal inspection, full ROM. Absent: tenderness, meningismus, lymphadenopathy Respiratory exam: Present: normal lung sounds bilaterally. Absent: respiratory distress, wheezes, rales, rhonchi, stridor Cardiovascular Exam: Present: regular rate, normal rhythm, normal heart sounds. Absent: systolic murmur, diastolic murmur, rubs, gallop, clicks GI/Abdominal exam: Present: soft, normal bowel sounds. Absent: distended, tenderness, guarding, rebound, rigid Neurological exam: Present: alert, oriented X3, CN II-XII intact, reflexes normal. Absent: motor sensory deficit Skin exam: Present: warm, dry, intact, normal color. Absent: rash Course Vital Signs 09/04/23 09/04/23 09/04/23 10:17 10:55 11:17 Temperature 98.0 F Pulse Rate 70 67 72 Respiratory 18 20 20 Rate Blood Pressure 188/95 179/104 180/107 O2 Sat by Pulse 99 Oximetry 09/04/23 09/04/23 12:04 12:21 Temperature 98.0 F Pulse Rate 76 77 Respiratory 20 Rate Blood Pressure 166/94 168/94 O2 Sat by Pulse 98 Oximetry EKG Findings - EKG Comments: EKG Findings:: EKG performed at 10: 24 sinus rhythm rate of 69 MO 133 QRS 89 QT/QTc 410/425 there is noted Q-wave lead III with inverted T wave lead III - EKG Results: EKG: interpreted by [facility] Medical Decision Making - Medical Decision Making Was pt. sent in by a medical professional or institution (, PA, C UNIX DEVELOPER, urgent care, hospital, or alf...) When possible be specific @ -No Did you speak to anyone other than the patient for history (EMS, parent, family, police, friend...)? What history was obtained from this source @ -No Did you review nursing and triage notes (agree or disagree)? Why? @ -I reviewed and agree with nursing and triage notes Were old charts reviewed (outside hosp., previous admission, EMS record, old EKG, old radiological studies, urgent care reports/EKG's, alf records)? Report findings @ -No old charts were reviewed Differential Diagnosis (chest pain, altered mental status, abdominal pain women, abdominal pain men, vaginal bleeding, weakness, fever, dyspnea, syncope, headache, dizziness, GI bleed, back pain, seizure, CVA, palpatations, mental health, musculoskeletal)? @ -Differential Syncope: Valvular disease, hypertrophic cardiomyopathy, pulmonary embolism, tamponade, tachycardia, bradycardia, TN, hypovolemia, hemorrhage, dissection, anemia, intracranial hemorrhage, seizure, hypoglycemia, carbon monoxide poisoning, this is not meant to be an all-inclusive list. EKG interpreted by me (3pts min.). @ -As above X-rays interpreted by me (1pt min.). @ -[Chest x-ray shows no acute cardiopulmonary process CT interpreted by me (1pt min.). @ -None done U/S interpreted by me (1pt. min.). @ -None done What testing was considered but not performed or refused? (CT, X-rays, U/S, labs)? Why? @ -None What meds were considered but not given or refused? Why? @ -None Did you discuss the management of the patient with other professionals (professionals i.e. , PA, C UNIX DEVELOPER, lab, RT, psych nurse, social and political studies professor, supervising broker, teacher, aboriginal liaison officer, rifle case repairer)? Give summary @ -No Was smoking cessation discussed for >3mins.? @ -No Was critical care preformed (if so, how long)? @ -No Were there social determinants of health that impacted care today? How? (Homelessness, low income, unemployed, alcoholism, drug addiction, transportat ion, low edu. Level, literacy, decrease access to med. care, long term, rehab)? @ -No Was there de-escalation of care discussed even if they declined (Discuss DNR or withdrawal of care, Hospice)? DNR status @ -No What co-morbidities impacted this encounter? (DM, HTN, Smoking, COPD, CAD, Cancer, CVA, ARF, Chemo, Hep., AIDS, mental health diagnosis, sleep apnea, morbid obesity)? @ -None Was patient admitted / discharged? Hospital course, mention meds given and route, prescriptions, significant lab abnormalities, going to OR and other pertinent info. @ -[Discharge patient is currently asymptomatic laboratory studies unremarkable. Patient is comfortable discharge she does have a mildly elevated blood pressure in which she has a history of hypertension she will follow-up with her primary care physician regarding medication she is to keep a log at home we discussed if any return of symptoms she is return to emergency department Undiagnosed new problem with uncertain prognosis? @ -No Drug Therapy requiring intensive monitoring for toxicity (Heparin, Nitro, Insulin, Cardizem)? @ -No Were any procedures done? @ -No Diagnosis/symptom? @ -Near syncope Acute, or Chronic, or Acute on Chronic? @ -[Acute Uncomplicated (without systemic symptoms) or Complicated (systemic symptoms)? @ -Uncomplicated Side effects of treatment? @ -No Exacerbation, Progression, or Severe Exacerbation? @ -No Poses a threat to life or bodily function? How? (Chest pain, [place], TN, pneumonia, PE, COPD, DKA, ARF, appy, cholecystitis, CVA, Diverticulitis, Homicidal, Suicidal, threat to staff... and all critical care pts) @ -No - Lab Data Result diagrams: 09/04/23 10:50 09/04/23 10:50 Lab Results 09/04/23 09/04/23 09/04/23 Range/Units 10:50 10:50 10:50 WBC 8.1 (3.8-10.6) k/uL RBC 4.48 (3.80-5.40) m/uL Hgb 13.8 (11.4-16.0) gm/dL Hct 41.9 (34.0-46.0) % MCV 93.5 (80.0-100.0) fL MCH 30.9 (25.0-35.0) pg MCHC 33.0 (31.0-37.0) g/dL RDW 12.9 (11.5-15.5) % Plt Count 295 (150-450) k/uL MPV 7.7 Neutrophils % 54 % Lymphocytes % 38 % Monocytes % 4 % Eosinophils % 2 % Basophils % 1 % Neutrophils # 4.4 (1.3-7.7) k/uL Lymphocytes # 3.1 (1.0-4.8) k/uL Monocytes # 0.3 (0-1.0) k/uL Eosinophils # 0.2 (0-0.7) k/uL Basophils # 0.1 (0-0.2) k/uL PT 10.6 (10.0-12.5) sec INR 1.0 (<1.2) APTT 23.6 (22.0-30.0) sec D-Dimer 0.28 (<0.60) mg/L FEU Sodium 139 (137-145) mmol/L Potassium 4.4 (3.5-5.1) mmol/L Chloride 105 (98-107) mmol/L Carbon Dioxide 28 (22-30) mmol/L Anion Gap 6 mmol/L BUN 21 H (7-17) mg/dL Creatinine 0.57 (0.52-1.04) mg/dL Est GFR (CKD-EPI)AfAm >90 (>60 ml/min/1.73 sqM) Est GFR (CKD-EPI)NonAf >90 (>60 ml/min/1.73 sqM) Glucose 99 (74-99) mg/dL Calcium 9.3 (8.4-10.2) mg/dL Magnesium 1.8 (1.6-2.3) mg/dL Total Bilirubin 0.4 (0.2-1.3) mg/dL AST 25 (14-36) U/L ALT 32 (4-34) U/L Alkaline Phosphatase 84 (38-126) U/L Troponin I (0.000-0.034) ng/mL Total Protein 7.5 (6.3-8.2) g/dL Albumin 4.2 (3.5-5.0) g/dL Urine Color Urine Appearance (Clear) Urine pH (5.0-8.0) Ur Specific [place] (1.001-1.035) Urine Protein (Negative) Urine Glucose (UA) (Negative) Urine Ketones (Negative) Urine Blood (Negative) Urine Nitrite (Negative) Urine Bilirubin (Negative) Urine Urobilinogen (<2.0) mg/dL Ur Leukocyte Esterase (Negative) 09/04/23 09/04/23 Range/Units 10:50 11:14 WBC (3.8-10.6) k/uL RBC (3.80-5.40) m/uL Hgb (11.4-16.0) gm/dL Hct (34.0-46.0) % MCV (80.0-100.0) fL MCH (25.0-35.0) pg MCHC (31.0-37.0) g/dL RDW (11.5-15.5) % Plt Count (150-450) k/uL MPV Neutrophils % % Lymphocytes % % Monocytes % % Eosinophils % % Basophils % % Neutrophils # (1.3-7.7) k/uL Lymphocytes # (1.0-4.8) k/uL Monocytes # (0-1.0) k/uL Eosinophils # (0-0.7) k/uL Basophils # (0-0.2) k/uL PT (10.0-12.5) sec INR (<1.2) APTT (22.0-30.0) sec D-Dimer (<0.60) mg/L FEU Sodium (137-145) mmol/L Potassium (3.5-5.1) mmol/L Chloride (98-107) mmol/L Carbon Dioxide (22-30) mmol/L Anion Gap mmol/L BUN (7-17) mg/dL Creatinine (0.52-1.04) mg/dL Est GFR (CKD-EPI)AfAm (>60 ml/min/1.73 sqM) Est GFR (CKD-EPI)NonAf (>60 ml/min/1.73 sqM) Glucose (74-99) mg/dL Calcium (8.4-10.2) mg/dL Magnesium (1.6-2.3) mg/dL Total Bilirubin (0.2-1.3) mg/dL AST (14-36) U/L ALT (4-34) U/L Alkaline Phosphatase (38-126) U/L Troponin I <0.012 (0.000-0.034) ng/mL Total Protein (6.3-8.2) g/dL Albumin (3.5-5.0) g/dL Urine Color Colorless Urine Appearance Clear (Clear) Urine pH 6.5 (5.0-8.0) Ur Specific [place] 1.011 (1.001-1.035) Urine Protein Negative (Negative) Urine Glucose (UA) Negative (Negative) Urine Ketones Negative (Negative) Urine Blood Negative (Negative) Urine Nitrite Negative (Negative) Urine Bilirubin Negative (Negative) Urine Urobilinogen <2.0 (<2.0) mg/dL Ur Leukocyte Esterase Negative (Negative) Disposition Clinical Impression: Near syncope Disposition: HOME SELF-CARE Condition: Stable Instructions (If sedation given, give patient instructions): Near Syncope (ED) Additional Instructions: Please return to the Emergency Department if symptoms worsen or any other concerns. Is patient prescribed a controlled substance at d/c from ED?: No Referrals: Tamia Vivas MD [Primary Care Provider] - 1-2 days Time of Disposition: 12:06
[2023-09-04] MEDS: SODIUM CHLORIDE 0.9% 1,000 ML IV STA (10:55)
[2023-09-04 10:58] LABS: Basophils # (A) 0.1 k/uL (0-0.2); Basophils % (A) 1 %; Eosinophils # (A) 0.2 k/uL (0-0.7); Eosinophils % (A) 2 %; HCT 41.9 % (34.0-46.0); HGB 13.8 gm/dL (11.4-16.0); Lymphocytes # (A) 3.1 k/uL (1.0-4.8); Lymphocytes % (A) 38 %; MCH 30.9 pg (25.0-35.0); MCV 93.5 fL (80.0-100.0); Mean Platelet Volume 7.7; Monocytes # (A) 0.3 k/uL (0-1.0); Monocytes % (A) 4 %; Neutrophils # (A) 4.4 k/uL (1.3-7.7); Neutrophils % (A) 54 %; Platelet Count 295 k/uL (150-450); RBC 4.48 m/uL (3.80-5.40); RDW 12.9 % (11.5-15.5); WBC 8.1 k/uL (3.8-10.6)
[2023-09-04 11:11] LABS: ALT 32 U/L (4-34); AST 25 U/L (14-36); African American GFR (CKD) >90 (>60 ml/min/1.73 sqM); Albumin 4.2 g/dL (3.5-5.0); Alkaline Phosphatase 84 U/L (38-126); Anion Gap 6 mmol/L; Blood Urea Nitrogen 21 mg/dL (7-17); Calcium 9.3 mg/dL (8.4-10.2); Carbon Dioxide 28 mmol/L (22-30); Chloride 105 mmol/L (98-107); Glucose 99 mg/dL (74-99); Magnesium 1.8 mg/dL (1.6-2.3); Non-African American GFR(CKD) >90 (>60 ml/min/1.73 sqM); Potassium 4.4 mmol/L (3.5-5.1); Sodium 139 mmol/L (137-145); Total Bilirubin 0.4 mg/dL (0.2-1.3); Total Protein 7.5 g/dL (6.3-8.2)
[2023-09-04 11:14] VITALS: RESP 20
--- NOTE | 2023-09-04 11:15 | XR ---
EXAMINATION TYPE: XR chest 2V DATE OF EXAM: 09/04/2023 11:02 AM CLINICAL INDICATION:Female, 48 years old with history of syncope; COMPARISON: Chest radiographs from 12/06/2022 TECHNIQUE: XR chest 2V Frontal and lateral views of the chest. FINDINGS: Lungs/Pleura: Scattered subtle reticular and hazy opacities. No evidence of pneumothorax, focal conso lidation or pleural effusion. Pulmonary vascularity: Unremarkable. Heart/mediastinum: Cardiomediastinal silhouette is unremarkable. Musculoskeletal: No acute osseous pathology. Other findings: None IMPRESSION: Subtle scattered opacities which may represent an atypical pneumonia.
[2023-09-04 11:20] LABS: Partial Thromboplastin Time 23.6 sec (22.0-30.0); Prothrombin Time 10.6 sec (10.0-12.5)
[2023-09-04] MEDS: hydrALAZINE HCL 20 MG/ML 1 ML VIAL IVP STA (11:21)
[2023-09-04 11:41] LABS: Appearance,Urine Clear (Clear); Bilirubin,Urine Negative (Negative); Blood,Urine Negative (Negative); Color,Urine Colorless; Glucose,Urine (UA) Negative (Negative); Ketones,Urine Negative (Negative); Leukocyte Esterase,Urine Negative (Negative); Nitrite,Urine Negative (Negative); PH, Urine 6.5 (5.0-8.0); Protein,Urine Negative (Negative); Specific Gravity,Urine 1.011 (1.001-1.035); Urobilinogen,Urine <2.0 mg/dL (<2.0)
[2023-09-04 12:44] VITALS: BP 168/94; PULSE 77
== END 2023-09-04 12:24 | disposition home or self-care (01) ==
LOC: EC 10:13
DX: R55 Syncope and collapse (principal)
CPT/HCPCS: 36415; 93005; 85379; 80053; 83735; 84484; 85025; 85610; 85730; 81003; 71046; 99285; 96374; 96361; J0360

== ENCOUNTER 2023-11-04 10:03 | Emergency (ER) | payer OTHER ==
--- NOTE | 2023-11-04 10:24 | ED ---
Recheck HPI - General Chief Complaint: Recheck/Abnormal Lab/Rx Stated Complaint: Hypertension Time Seen by Provider: 11/04/23 10:22 Source: patient, RN notes reviewed Mode of arrival: ambulatory Limitations: no limitations - History of Present Illness Initial Comments: 48-year-old female presenting to the ER with a chief complaint of high blood pressure. Patient reports for the last week she has been feeling "weird". She describes this feeling as more dizzy than normal. She normally follows-up with Dr. Vivas but has not been able to. She took her blood pressure last night and it was found to be 199/119. She did take her blood pressure medication last night. She does not know what medications she is currently taking but does know she is currently on two antihypertensives medications. She does follow-up with Dr. Paez but it has been over a year since she has followed up with him. She reports recent palpitations which is "normal" for her. She denies any current chest pain, shortness of breath, lightheadedness, dizziness, palpitations, per ipheral edema. No other complaints at this time. - Related Data Home Medications Medication Instructions Recorded Confirmed Acetaminophen/Diphenhydramine 3 tab PO HS 11/04/23 11/04/23 [Tylenol PM 500-25mg] Albuterol Sulfate [Albuterol 2 puff PO RT-Q4H PRN 11/04/23 11/04/23 Sulfate Hfa] Losartan [Cozaar] 25 mg PO HS 11/04/23 11/04/23 Previous Rx's Medication Instructions Recorded Atorvastatin [Lipitor] 40 mg PO HS 30 Days #30 tab 10/26/21 Losartan [Cozaar] 25 mg PO BID 30 Days #60 tab 11/04/23 Allergies Allergy/AdvReac Type Severity Reaction Status Date / Time No Known Allergies Allergy Verified 11/04/23 11:21 Review of Systems ROS Statement: Those systems with pertinent positive or pertinent negative responses have been documented in the HPI. ROS Other: All systems not noted in ROS Statement are negative. Past Medical History Past Medical History: No Reported History, Hypertension Additional Past Medical History / Comment(s): STATES HX OF 2 EPISODES OF INVOLUNTARY MOVEMENTS ALL OVER (2010 & 2018)- TOLD POSSIBLE CHOREA., HAS LAP BAND, EPISODES OF VOMITING. History of Any Multi-Drug Resistant Organisms: None Reported Past Surgical History: Bariatric Surgery, Section Additional Past Surgical History / Comment(s): LAP BAND-2009, PAIN CLINIC P ROCEDURES Past Anesthesia/Blood Transfusion Reactions: No Reported Reaction Past Psychological History: No Psychological Hx Reported, Bipolar Smoking Status: Never smoker Past Alcohol Use History: Occasional Past Drug Use History: None Reported - Past Family History Mother Family Medical History: Hypertension Brother(s) Family Medical History: Cancer, Diabetes Mellitus Additional Family Medical History / Comment(s): HEART DISEASE Father Family Medical History: Cancer Additional Family Medical History / Comment(s): SKIN CANCER, HEART DISEASE General Exam Limitations: no limitations General appearance: alert, in no apparent distress Head exam: Present: atraumatic, normocephalic, normal inspection Eye exam: Present: normal appearance, PERRL, EOMI. Absent: scleral icterus, conjunctival injection, periorbital swelling Respiratory exam: Present: normal lung sounds bilaterally. Absent: respiratory distress, wheezes, rales, rhonchi, stridor Cardiovascular Exam: Present: regular rate, normal rhythm, normal heart sounds. Absent: systolic murmur, diastolic murmur, rubs, gallop, clicks Extremities exam: Present: normal inspection, full ROM, normal capillary refill. Absent: tenderness, pedal edema, joint swelling, calf tenderness Neurological exam: Present: alert, oriented X3, CN II-XII intact Psychiatric exam: Present: normal affect, normal mood Skin exam: Present: warm, dry, intact, normal color. Absent: rash Course Vital Signs 11/04/23 11/04/23 11/04/23 10:07 10:39 11:45 Temperature 98.1 F Pulse Rate 83 68 65 Respiratory 20 18 18 Rate Blood Pressure 177/122 173/123 182/114 O2 Sat by Pulse 100 99 98 Oximetry 11/04/23 11/04/23 11/04/23 11:59 12:04 12:15 Temperature Pulse Rate 73 71 Respiratory 18 18 Rate Blood Pressure 171/107 154/94 159/92 O2 Sat by Pulse 99 100 Oximetry Medical Decision Making - Medical Decision Making Was pt. sent in by a medical professional or institution (, PA, SOLUTIONS ENGINEER, urgent care, hospital, or long term...) When possible be specific @ -No Did you speak to anyone other than the patient for history (EMS, parent, family, police, friend...)? What history was obtained from this source @ -No Did you review nursing and triage notes (agree or disagree)? Why? @ -I reviewed and agree with nursing and triage notes Were old charts reviewed (outside hosp., previous admission, EMS record, old EKG, old radiological studies, urgent care reports/EKG's, long term records)? Report findings @ -No old charts were reviewed Differential Diagnosis (chest pain, altered mental status, abdominal pain women, abdominal pain men, vaginal bleeding, weakness, fever, dyspnea, syncope, headache, dizziness, GI bleed, back pain, seizure, CVA, palpatations, mental health, musculoskeletal)? @ -Differential Palpitations: Ventricular arrhythmias, atrial arrhythmias, myocardial infarction, anemia, thyrotoxicosis, electrolyte imbalance, hypok alemia, pulmonary embolism, pulmonary disease, drugs, alcohol, anxiety, stress.... This is not meant to be an all-inclusive list. EKG interpreted by me (3pts min.). @ -As above X-rays interpreted by me (1pt min.). @ -Chest x-ray interpreted by me negative for acute cardiopulmonary process. CT interpreted by me (1pt min.). @ -None done U/S interpreted by me (1pt. min.). @ -None done What testing was considered but not performed or refused? (CT, X-rays, U/S, labs)? Why? @ -None What meds were considered but not given or refused? Why? @ -None Did you discuss the management of the patient with other professionals (professionals i.e. , PA, SOLUTIONS ENGINEER, lab, RT, psych nurse, drug abuse social worker, steel erecting pusher, teacher, personal banking officer, rehabilitation caseworker)? Give summary @ -No Was smoking cessation discussed for >3mins.? @ -No Was critical care preformed (if so, how long)? @ -No Were there social determinants of health that impacted care today? How? (Homelessness, low income, unemployed, alcoholism, drug addiction, transportation, low edu. Level, literacy, decrease access to med. care, skilled nursing, rehab)? @ -Yes, patient has not been able to follow-up with her PCP as hers recently is no longer practicing. Was there de-escalation of care discussed even if they declined (Discuss DNR or withdrawal of care, Hospice)? DNR status @ -No What co-morbidities impacted this encounter? (DM, HTN, Smoking, COPD, CAD, Ca ncer, CVA, ARF, Chemo, Hep., AIDS, mental health diagnosis, sleep apnea, morbid obesity)? @ -Hypertension, obesity Was patient admitted / discharged? Hospital course, mention meds given and route, prescriptions, significant lab abnormalities, going to OR and other pertinent info. @ -Discharge. 48-year-old female presenting to the ER with chief complaint of hypertension. History and physical exam completed. Blood pressure upon arrival 182/114. Heart rate is 65. Patient no signs of acute distress and nontoxic- appearing. Labs obtained impressive. Troponin less than 0.012. Chest x-ray ne gative for acute cardiopulmonary process. Patient received IV hydralazine with improvement of blood pressure to 159/92. EKG showing sinus rhythm with inverted T waves in lead III. T wave inversion appears to be chronic compared to previous EKG. Results discussed with patient, all questions answered. Advised patient to increase losartan 25mg to twice daily. PH area PCP form given, as her current PCP is no longer in practice. Return parameters discussed patient discharged stable condition with follow-up to PCP. Patient verbally expressed understanding and agreement with care plan. Case discussed with ED attending, Dr. Aguilar. Undiagnosed new problem with uncertain prognosis? @ -No Drug Therapy requiring intensive monitoring for toxicity (Heparin, Nitro, Insulin, Cardizem)? @ -No Were any procedures done? @ -No Diagnosis/symptom? @ -Hypertension Acute, or Chronic, or Acute on Chronic? @ -Acute Uncomplicated (without systemic symptoms) or Complicated (systemic symptoms)? @ -Uncomplicated Side effects of treatment? @ -No Exacerbation, Progression, or Severe Exacerbation? @ -No Poses a threat to life or bodily function? How? (Chest pain, [place], [place], pneumonia, PE, COPD, DKA, ARF, appy, cholecystitis, CVA, Diverticulitis, Homicidal, Suicidal, threat to staff... and all critical care pts) @ -No - Lab Data Result diagrams: 11/04/23 10:58 11/04/23 10:58 Lab Results 11/04/23 11/04/23 11/04/23 Range/Units 10:58 10:58 10:58 WBC 8.3 (3.8-10.6) k/uL RBC 4.54 (3.80-5.40) m/uL Hgb 14.2 (11.4-16.0) gm/dL Hct 43.0 (34.0-46.0) % MCV 94.8 (80.0-100.0) fL MCH 31.3 (25.0-35.0) pg MCHC 33.0 (31.0-37.0) g/dL RDW 13.0 (11.5-15.5) % Plt Count 338 (150-450) k/uL MPV 7.6 PT 10.4 (10.0-12.5) sec INR 0.9 (<1.2) APTT 23.8 (22.0-30.0) sec Sodium 141 (137-145) mmol/L Potassium 4.1 (3.5-5.1) mmol/L Chloride 104 (98-107) mmol/L Carbon Dioxide 28 (22-30) mmol/L Anion Gap 9 mmol/L BUN 16 (7-17) mg/dL Creatinine 0.62 (0.52-1.04) mg/dL Est GFR (CKD-EPI)AfAm >90 (>60 ml/min/1.73 sqM) Est GFR (CKD-EPI)NonAf >90 (>60 ml/min/1.73 sqM) Glucose 93 (74-99) mg/dL Calcium 9.5 (8.4-10.2) mg/dL Magnesium 2.0 (1.6-2.3) mg/dL Total Bilirubin 0.7 (0.2-1.3) mg/dL AST 37 H (14-36) U/L ALT 54 H (4-34) U/L Alkaline Phosphatase 78 (38-126) U/L Troponin I (0.000-0.034) ng/mL Total Protein 7.8 (6.3-8.2) g/dL Albumin 4.2 (3.5-5.0) g/dL Urine Color Urine Appearance (Clear) Urine pH (5.0-8.0) Ur Specific [place] (1.001-1.035) Urine Protein (Negative) Urine Glucose (UA) (Negative) Urine Ketones (Negative) Urine Blood (Negative) Urine Nitrite (Negative) Urine Bilirubin (Negative) Urine Urobilinogen (<2.0) mg/dL Ur Leukocyte Esterase (Negative) Urine RBC (0-5) /hpf Urine WBC (0-5) /hpf Ur Squamous Epith Cells (0-4) /hpf Urine Bacteria (None) /hpf Urine Mucus (None) /hpf 11/04/23 11/04/23 Range/Units 10:58 10:58 WBC (3.8-10.6) k/uL RBC (3.80-5.40) m/uL Hgb (11.4-16.0) gm/dL Hct (34.0-46.0) % MCV (80.0-100.0) fL MCH (25.0-35.0) pg MCHC (31.0-37.0) g/dL RDW (11.5-15.5) % Plt Count (150-450) k/uL MPV PT (10.0-12.5) sec INR (<1.2) APTT (22.0-30.0) sec Sodium (137-145) mmol/L Potassium (3.5-5.1) mmol/L Chloride (98-107) mmol/L Carbon Dioxide (22-30) mmol/L Anion Gap mmol/L BUN (7-17) mg/dL Creatinine (0.52-1.04) mg/dL Est GFR (CKD-EPI)AfAm (>60 ml/min/1.73 sqM) Est GFR (CKD-EPI)NonAf (>60 ml/min/1.73 sqM) Glucose (74-99) mg/dL Calcium (8.4-10.2) mg/dL Magnesium (1.6-2.3) mg/dL Total Bilirubin (0.2-1.3) mg/dL AST (14-36) U/L ALT (4-34) U/L Alkaline Phosphatase (38-126) U/L Troponin I <0.012 (0.000-0.034) ng/mL Total Protein (6.3-8.2) g/dL Albumin (3.5-5.0) g/dL Urine Color Colorless Urine Appearance Clear (Clear) Urine pH 6.5 (5.0-8.0) Ur Specific [place] 1.008 (1.001-1.035) Urine Protein Negative (Negative) Urine Glucose (UA) Negative (Negative) Urine Ketones Negative (Negative) Urine Blood Trace H (Negative) Urine Nitrite Negative (Negative) Urine Bilirubin Negative (Negative) Urine Urobilinogen <2.0 (<2.0) mg/dL Ur Leukocyte Esterase Small H (Negative) Urine RBC 2 (0-5) /hpf Urine WBC 3 (0-5) /hpf Ur Squamous Epith Cells 3 (0-4) /hpf Urine Bacteria Rare H (None) /hpf Urine Mucus Rare H (None) /hpf - EKG Data -: EKG Interpreted by Me EKG Comments: EKG taken at 10: 48 shows a normal sinus rhythm with T wave inversion in lead III. Ventricular rate 63, TX interval 136, QRS duration 87, QT/QTc 443/450. - Radiology Data Radiology results: report reviewed, image reviewed Disposition Clinical Impression: Hypertension Disposition: HOME SELF-CARE Condition: Stable Instructions (If sedation given, give patient instructions): Hypertension (ED) Additional Instructions: Take losartan 25 mg by mouth twice daily. Follow-up PCP. Referral given. Return to ER for any new or worsening concerns. Prescriptions: Losartan [Cozaar] 25 mg PO BID 30 Days #60 tab Is patient prescribed a controlled substance at d/c from ED?: No Referrals: Tamia Vivas MD [REFERRING] - 1-2 days Sohail Liao MD [STAFF PHYSICIAN] - 1-2 days Forms: Area PCPs Time of Disposition: 12:31
[2023-11-04 10:55] VITALS: RESP 18
[2023-11-04 11:14] LABS: HGB 14.2 gm/dL (11.4-16.0); MCH 31.3 pg (25.0-35.0); MCV 94.8 fL (80.0-100.0); Mean Platelet Volume 7.6; Platelet Count 338 k/uL (150-450); RBC 4.54 m/uL (3.80-5.40); WBC 8.3 k/uL (3.8-10.6)
[2023-11-04 11:30] LABS: ALT 54 U/L (4-34); AST 37 U/L (14-36); African American GFR (CKD) >90 (>60 ml/min/1.73 sqM); Albumin 4.2 g/dL (3.5-5.0); Alkaline Phosphatase 78 U/L (38-126); Anion Gap 9 mmol/L; Blood Urea Nitrogen 16 mg/dL (7-17); Calcium 9.5 mg/dL (8.4-10.2); Carbon Dioxide 28 mmol/L (22-30); Chloride 104 mmol/L (98-107); Glucose 93 mg/dL (74-99); Non-African American GFR(CKD) >90 (>60 ml/min/1.73 sqM); Potassium 4.1 mmol/L (3.5-5.1); Sodium 141 mmol/L (137-145); Total Bilirubin 0.7 mg/dL (0.2-1.3); Total Protein 7.8 g/dL (6.3-8.2)
[2023-11-04 11:38] LABS: INR 0.9 (<1.2); Partial Thromboplastin Time 23.8 sec (22.0-30.0); Prothrombin Time 10.4 sec (10.0-12.5)
[2023-11-04 11:40] LABS: Appearance,Urine Clear (Clear); Bacteria,Urine Rare /hpf; Bilirubin,Urine Negative (Negative); Blood,Urine Trace (Negative); Color,Urine Colorless; Glucose,Urine (UA) Negative (Negative); Ketones,Urine Negative (Negative); Leukocyte Esterase,Urine Small (Negative); Mucus,Urine Rare /hpf; Nitrite,Urine Negative (Negative); PH, Urine 6.5 (5.0-8.0); Protein,Urine Negative (Negative); RBC,Urine 2 /hpf (0-5); Specific Gravity,Urine 1.008 (1.001-1.035); Squamous Epithelial Cell,Urine 3 /hpf (0-4); Urobilinogen,Urine <2.0 mg/dL (<2.0); WBC,Urine 3 /hpf (0-5)
[2023-11-04] MEDS: hydrALAZINE HCL 20 MG/ML 1 ML VIAL IVP STA (11:51)
--- NOTE | 2023-11-04 12:20 | XR ---
EXAMINATION TYPE: XR chest 2V DATE OF EXAM: 11/04/2023 COMPARISON: NONE HISTORY: Chest pain TECHNIQUE: Frontal and lateral views of the chest are obtained. FINDINGS: There is no focal air space opacity. No evidence for pneumothorax. No pleural effusion. The cardiac silhouette size is within normal limits. The osseous structures are grossly intact. IMPRESSION: 1. No acute cardiopulmonary process.
[2023-11-04 13:02] VITALS: BP 169/92; PULSE 77; TEMP 98.9
== END 2023-11-04 12:58 | disposition home or self-care (01) ==
LOC: EC 10:03
DX: I10 Essential (primary) hypertension (principal)
CPT/HCPCS: 36415; 93005; 80053; 83735; 84484; 85027; 85610; 85730; 81001; 71046; 99284; 96374; J0360

== ENCOUNTER 2024-10-13 11:41 | Inpatient (IN) | payer OTHER ==
--- NOTE | 2024-10-13 12:21 | ED ---
General Adult HPI - General Chief complaint: Chest Pain Stated complaint: Chest pain Time Seen by Provider: 10/13/24 12:06 Source: patient, RN notes reviewed Mode of arrival: ambulatory Limitations: no limitations - History of Present Illness Initial comments: 49-year-old female presents to the emergency department for evaluation of chest pain radiating to her neck and her back. She states that this started about a week ago. She notes that today is felt progressively worse. She states that the pain has been pretty constant but does worsen some with exertion. She notes a history of hypertension but is not currently on medication for this. She was on losartan in the past. She denies any nausea, vomiting, diaphoresis. She denies any cardiac history. Denies smoking history. - Related Data Previous Rx's Medication Instructions Recorded Rosuvastatin [Crestor] 20 mg PO HS #90 tab 10/16/24 Valsartan [Diovan] 320 mg PO DAILY #90 tab 10/16/24 Allergies Allergy/AdvReac Type Severity Reaction Status Date / Time No Known Allergies Allergy Verified 10/13/24 15:12 Review of Systems ROS Statement: Those systems with pertinent positive or pertinent negative responses have been documented in the HPI. ROS Other: All systems not noted in ROS Statement are negative. Past Medical History Past Medical History: No Reported History, Hypertension Additional Past Medical History / Comment(s): STATES HX OF 2 EPISODES OF INVOLUNTARY MOVEMENTS ALL OVER (2010 & 2017)- TOLD POSSIBLE CHOREA., HAS LAP BAND, EPISODES OF VOMITING. History of Any Multi-Drug Resistant Organisms: None Reported Past Surgical History: Bariatric Surgery, Section Additional Past Surgical History / Comment(s): LAP BAND-2009, PAIN CLINIC PROCEDURES Past Anesthesia/Blood Transfusion Reactions: No Reported Reaction Past Psychological History: No Psychological Hx Reported, Bipolar Smoking Status: Never smoker Past Alcohol Use History: Occasional Past Drug Use History: None Reported - Past Family History Mother Family Medical History: Hypertension Brother(s) Family Medical History: Cancer, Diabetes Mellitus Additional Family Medical History / Comment(s): HEART DISEASE Father Family Medical History: Cancer Additional Family Medical History / Comment(s): SKIN CANCER, HEART DISEASE General Exam Limitations: no limitations General appearance: alert, in no apparent distress Head exam: Present: atraumatic, normocephalic, normal inspection Eye exam: Present: normal appearance, PERRL, EOMI. Absent: scleral icterus, conjunctival injection, periorbital swelling ENT exam: Present: normal exam, mucous membranes moist Respiratory exam: Present: normal lung sounds bilaterally. Absent: respiratory distress, wheezes, rales, rhonchi, stridor Cardiovascular Exam: Present: regular rate, normal rhythm, normal heart sounds. Absent: systolic murmur, diastolic murmur, rubs, gallop, clicks Extremities exam: Present: normal inspection, full ROM, normal capillary refill. Absent: tenderness, pedal edema, joint swelling, calf tenderness Neurological exam: Present: alert, oriented X3 Psychiatric exam: Present: normal affect, normal mood Skin exam: Present: warm, dry, intact, normal color. Absent: rash Course Vital Signs 10/13/24 10/13/24 10/13/24 11:48 12:04 15:47 Temperature 97.6 F Pulse Rate 65 62 Respiratory 18 16 18 Rate Blood Pressure 176/122 167/111 O2 Sat by Pulse 100 98 Oximetry 10/13/24 17:22 Temperature Pulse Rate 78 Respiratory 18 Rate Blood Pressure 162/104 O2 Sat by Pulse 99 Oximetry Medical Decision Making - Medical Decision Making Was pt. sent in by a medical professional or institution (, PA, OFFICE AUTOMATION CLERK, urgent care, hospital, or detention...) When possible be specific @ -No Did you speak to anyone other than the patient for history (EMS, parent, family, police, friend...)? What history was obtained from this source @ -No Did you review nursing and triage notes (agree or disagree)? Why? @ -I reviewed and agree with nursing and triage notes Were old charts reviewed (outside hosp., previous admission, EMS record, old EKG, old radiological studies, urgent care reports/EKG's, detention records)? Report findings @ -No old charts were reviewed Differential Diagnosis (chest pain, altered mental status, abdominal pain women, abdominal pain men, vaginal bleeding, weakness, fever, dyspnea, syncope, h eadache, dizziness, GI bleed, back pain, seizure, CVA, palpatations, mental health, musculoskeletal)? @ -Differential Chest Pain: Stable Angina, Unstable Angina, STEMI, NSTEMI Aortic Dissection, Pneumothorax, Musculoskeletal, Esophageal Spasm GERD, Cholecystitis, Pancreatitis, Zoster, this is not meant to be an all-inclusive list. EKG interpreted by me (3pts min.). @ -EKG at 1159 shows sinus rhythm rate 68, GA 131, QRS 90, QTQTc [id number] X-rays interpreted by me (1pt min.). @ -Chest x-ray shows showed no acute process CT interpreted by me (1pt min.). @ -None done U/S interpreted by me (1pt. min.). @ -None done What testing was considered but not performed or refused? (CT, X-rays, U/S, labs)? Why? @ -None What meds were considered but not given or refused? Why? @ -None Did you discuss the management of the patient with other professionals (professionals i.e. , PA, OFFICE AUTOMATION CLERK, lab, RT, psych nurse, social media content manager, bisque brusher, teacher, global chief creative officer, director of casework department)? Give summary @ -Management discussed with cardiology, Dr. Diaz who recommended starting her on atorvastatin, carvedilol, valsartan Case discussed with [facility] physicians who is accepting of the admission Was smoking cessation discussed for >3mins.? @ -No Was critical care preformed (if so, how long)? @ -No Were there social determinants of health that impacted care today? How? (Homelessness, low income, unemployed, alcoholism, drug addiction, transportation, low edu. Level, literacy, decrease access to med. care, care home, rehab)? @ -No Was there de-escalation of care discussed even if they declined (Discuss DNR or withdrawal of care, Hospice)? DNR status @ -No What co-morbidities impacted this encounter? (DM, HTN, Smoking, COPD, CAD, Cancer, CVA, ARF, Chemo, Hep., AIDS, mental health diagnosis, sleep apnea, mo rbid obesity)? @ -None Was patient admitted / discharged? Hospital course, mention meds given and r oute, prescriptions, significant lab abnormalities, going to OR and other pertinent info. @ -Admitted.Patient presented emergency department for evaluation of chest pain radiating to her back. Laboratory studies obtained revealing leukocytosis at 14. Coagulation studies unremarkable CMP shows electrolytes within normal limits, elevated troponin at 0.074. Chest x-ray obtained reveals no acute process. Patient was administered nitro. She does report some improvement of her symptoms with this. Case was discussed with cardiology, Dr. Diaz who recommended medication for blood pressure control along with atorvastatin. Patient was heparinized. Patient will be admitted with serial troponins. She is understanding agreeable with this plan. Case was discussed with [facility] was accepting of the admission. Patient stable at time of admission. Case discussed with Dr. Cristina Undiagnosed new problem with uncertain prognosis? @ -No Drug Therapy requiring intensive monitoring for toxicity (Heparin, Nitro, Insulin, Cardizem)? @ -yes heparin Were any procedures done? @ -No Diagnosis/symptom? @ -Chest pain, NSTEMI Acute, or Chronic, or Acute on Chronic? @ -Acute Uncomplicated (without systemic symptoms) or Complicated (systemic symptoms)? @ -Complicated Side effects of treatment? @ -No Exacerbation, Progression, or Severe Exacerbation? @ -No Poses a threat to life or bodily function? How? (Chest pain, [place], [place], pneumonia, PE, COPD, DKA, ARF, appy, cholecystitis, CVA, Diverticulitis, Homicidal, Suicidal, threat to staff... and all critical care pts) @ -NSTEMI - Lab Data Result diagrams: 10/14/24 05:37 10/16/24 06:00 Lab Results 10/13/24 10/13/24 10/13/24 Range/Units 12:30 12:30 12:30 WBC 14.0 H (3.8-10.6) k/uL RBC 4.61 (3.80-5.40) m/uL Hgb 13.9 (11.4-16.0) gm/dL Hct 43.8 (34.0-46.0) % MCV 95.0 (80.0-100.0) fL MCH 30.2 (25.0-35.0) pg MCHC 31.8 (31.0-37.0) g/dL RDW 12.5 (11.5-15.5) % Plt Count 357 (150-450) k/uL MPV 8.2 Neutrophils % 67 % Lymphocytes % 27 % Monocytes % 4 % Eosinophils % 1 % Basophils % 0 % Neutrophils # 9.3 H (1.3-7.7) k/uL Lymphocytes # 3.8 (1.0-4.8) k/uL Monocytes # 0.6 (0-1.0) k/uL Eosinophils # 0.1 (0-0.7) k/uL Basophils # 0.0 (0-0.2) k/uL PT 10.7 (10.0-12.5) sec INR 1.0 (<1.2) APTT 21.0 L (22.0-30.0) sec Sodium (137-145) mmol/L Potassium (3.5-5.1) mmol/L Chloride (98-107) mmol/L Carbon Dioxide (22-30) mmol/L Anion Gap mmol/L BUN (7-17) mg/dL Creatinine (0.52-1.04) mg/dL Est GFR (CKD-EPI)AfAm (>60 ml/min/1.73 sqM) Est GFR (CKD-EPI)NonAf (>60 ml/min/1.73 sqM) Glucose (74-99) mg/dL Calcium (8.4-10.2) mg/dL Magnesium (1.6-2.3) mg/dL Total Bilirubin (0.2-1.3) mg/dL AST (14-36) U/L ALT (4-34) U/L Alkaline Phosphatase (38-126) U/L Troponin I 0.074 H* (0.000-0.034) ng/mL Total Protein (6.3-8.2) g/dL Albumin (3.5-5.0) g/dL HCG, Quant mIU/mL 10/13/24 Range/Units 13:47 WBC (3.8-10.6) k/uL RBC (3.80-5.40) m/uL Hgb (11.4-16.0) gm/dL Hct (34.0-46.0) % MCV (80.0-100.0) fL MCH (25.0-35.0) pg MCHC (31.0-37.0) g/dL RDW (11.5-15.5) % Plt Count (150-450) k/uL MPV Neutrophils % % Lymphocytes % % Monocytes % % Eosinophils % % Basophils % % Neutrophils # (1.3-7.7) k/uL Lymphocytes # (1.0-4.8) k/uL Monocytes # (0-1.0) k/uL Eosinophils # (0-0.7) k/uL Basophils # (0-0.2) k/uL PT (10.0-12.5) sec INR (<1.2) APTT (22.0-30.0) sec Sodium 137 (137-145) mmol/L Potassium 3.9 (3.5-5.1) mmol/L Chloride 101 (98-107) mmol/L Carbon Dioxide 28 (22-30) mmol/L Anion Gap 8 mmol/L BUN 14 (7-17) mg/dL Creatinine 0.63 (0.52-1.04) mg/dL Est GFR (CKD-EPI)AfAm >90 (>60 ml/min/1.73 sqM) Est GFR (CKD-EPI)NonAf >90 (>60 ml/min/1.73 sqM) Glucose 93 (74-99) mg/dL Calcium 9.1 (8.4-10.2) mg/dL Magnesium 1.8 (1.6-2.3) mg/dL Total Bilirubin 0.5 (0.2-1.3) mg/dL AST 21 (14-36) U/L ALT 24 (4-34) U/L Alkaline Phosphatase 60 (38-126) U/L Troponin I (0.000-0.034) ng/mL Total Protein 7.5 (6.3-8.2) g/dL Albumin 4.1 (3.5-5.0) g/dL HCG, Quant <2.4 mIU/mL Disposition Clinical Impression: NSTEMI (non-ST elevated myocardial infarction) Disposition: ADMITTED IP TO THIS HOSP Condition: Stable Is patient prescribed a controlled substance at d/c from ED?: No
[2024-10-13] MEDS: ASPIRIN 81 MG PO STA (12:34)
[2024-10-13 12:48] LABS: Basophils % (A) 0 %; Eosinophils # (A) 0.1 k/uL (0-0.7); Eosinophils % (A) 1 %; HCT 43.8 % (34.0-46.0); HGB 13.9 gm/dL (11.4-16.0); Lymphocytes # (A) 3.8 k/uL (1.0-4.8); Lymphocytes % (A) 27 %; MCH 30.2 pg (25.0-35.0); MCHC 31.8 g/dL (31.0-37.0); Mean Platelet Volume 8.2; Monocytes # (A) 0.6 k/uL (0-1.0); Monocytes % (A) 4 %; Neutrophils # (A) 9.3 k/uL (1.3-7.7); Neutrophils % (A) 67 %; Platelet Count 357 k/uL (150-450); RBC 4.61 m/uL (3.80-5.40); RDW 12.5 % (11.5-15.5)
[2024-10-13 13:02] LABS: Prothrombin Time 10.7 sec (10.0-12.5)
--- NOTE | 2024-10-13 13:34 | XR ---
EXAMINATION TYPE: XR chest 2V DATE OF EXAM: 10/13/2024 1:17 PM COMPARISON: 11/04/2023 CLINICAL INDICATION: Female, 49 years old with history of Chest Pain, TECHNIQUE: Frontal and lateral views of the chest are obtained. FINDINGS: There is no focal air space opacity, pleural effusion, or pneumothorax seen. The cardiac silhouette size is within normal limits. The osseous structures are intact. IMPRESSION: No acute cardiopulmonary process. [facility], , 10/13/2024 1:32 PM
[2024-10-13 14:12] LABS: ALT 24 U/L (4-34); AST 21 U/L (14-36); African American GFR (CKD) >90 (>60 ml/min/1.73 sqM); Albumin 4.1 g/dL (3.5-5.0); Alkaline Phosphatase 60 U/L (38-126); Anion Gap 8 mmol/L; Blood Urea Nitrogen 14 mg/dL (7-17); Calcium 9.1 mg/dL (8.4-10.2); Carbon Dioxide 28 mmol/L (22-30); Chloride 101 mmol/L (98-107); Glucose 93 mg/dL (74-99); Magnesium 1.8 mg/dL (1.6-2.3); Non-African American GFR(CKD) >90 (>60 ml/min/1.73 sqM); Potassium 3.9 mmol/L (3.5-5.1); Sodium 137 mmol/L (137-145); Total Bilirubin 0.5 mg/dL (0.2-1.3); Total Protein 7.5 g/dL (6.3-8.2)
[2024-10-13 14:28] LABS: HCG,Quantitative Serum <2.4 mIU/mL
[2024-10-13] MEDS: NITROGLYCERIN SL TABS 0.4 MG TAB SUBLINGUAL PRN (14:46)
[2024-10-13] MEDS ORDERED: HEPARIN SODIUM 1,000 UN/ML (10ML VL) IV PRN (14:50)
[2024-10-13] MEDS ORDERED: VALSARTAN 160 MG TAB PO STA (15:26)
[2024-10-13] MEDS: HEPARIN SODIUM 1,000 UN/ML (10ML VL) IV ONE (15:40)
[2024-10-13] MEDS: HEPARIN SOD,PORK IN 0.45% NACL 25,000 UNIT in 0.45% NACL 1 250ML.BAG IV SCH (15:41)
[2024-10-13] MEDS: ATORVASTATIN 40 MG TAB PO STA (15:47)
[2024-10-13] MEDS: carvediloL 3.125 MG TAB PO STA (15:47)
[2024-10-13] MEDS ORDERED: MORPHINE SULFATE 4 MG/ML SYRINGE IV PRN (15:56)
[2024-10-13] MEDS ORDERED: NALOXONE 0.4 MG/ML 1 ML VIAL IV PRN (15:56)
[2024-10-13] MEDS: VALSARTAN 80 MG TAB PO STA (16:40)
--- NOTE | 2024-10-13 17:35 | P.HPIM ---
History of Present Illness H&P Date: 10/13/24 Patient is a 49-year-old female with hypertension here for evaluation of chest pressure. Patient reported that last Monday 10/09 she experienced chest pressure that was intermittent that radiated to the neck and between the shoulder blades that would last for 10 minutes with a maximum intensity of 2 out of 10 and is worse with exertion. It is relieved by rest and was improved with administration of nitroglycerin in our facility. At current, she still experiences the chest pressure. She also reported associated bilateral leg swelling that occurred acutely throughout the weekend. She denied palpitations, shortness of breath, calf pain, productive cough, nausea, vomiting, chills, fevers, facial symmetry, focal weakness, abdominal pain, recent prolonged travel, recent illness or recent hospitalization. On admission: Vitals: Temperature 97.6, pulse rate 65, respiratory rate 18, blood pressure 176/122, O2 saturation 100% on room air Labs: WBC 14, hemoglobin 13.9, platelet count 357,000, sodium 137, potassium 3.9, bicarb 28, creatinine 0.63, calcium 9.1, magnesium 1.8. Troponins elevated at 0.074. hCG less than 2.4. Liver enzymes unremarkable.. Imaging: EKG showed sinus rhythm with a rate of 68, normal axis, no ST-T changes, good R wave progression, QTc 453 MS. Chest x-ray shows no acute process. ED documentation reviewed. High-dose aspirin, Lipitor, carvedilol and heparin drip given in the ED. Nitroglycerin given in the ED. Review of systems: Pertinent positives and negatives as discussed in HPI, a complete review of systems was performed and all other systems are negative. Social history: Tobacco: She is a never smoker Alcohol: Occasional alcohol intake Recreational drugs: Denies history with illicit or recreational drug use Physical examination: Vital signs reviewed General: non toxic, no distress, appears at stated age, obese Derm: no unusual rashes/lesions, warm Head: atraumatic, normocephalic, symmetric Eyes: EOMI, anicteric sclera, pupils equal round reactive to light ENT: Nose and ears atraumatic Neck: No cervical lymphadenopathy, trachea midline, supple Mouth: no lip lesion, mucus membranes moist Cardiovascular: S1S2 reg, no murmur Lungs: CTA bilateral, no rhonchi, no rales, no accessory muscle use Abdominal: soft, nondistended, nontender to palpation, no guarding Ext: muscle strength 5 out of 5 in all 4 extremities grossly, no gross muscle atrophy, no contractures, positive dorsalis pedis pulse bilateral, bilateral lower extremity +2 pitting edema worse on the right than left Neuro: CN II-XI grossly intact, no gross focal neuro deficits Psych: Alert and oriented x 3, appropriate affect and mood Assessment/Plan: 49-year-old female with hypertension here for evaluation of chest pressure. Found to have NSTEMI on labs The patient is admitted with an anticipated greater than 2 midnight stay for evaluation of NSTEMI Active: #. NSTEMI type I #. Leukocytosis, reactive -Patient still experiences chest pressure despite nitroglycerin -EKG showed sinus rhythm with a rate of 68, normal axis, no ST-T changes, good R wave progression, QTc 453 MS -Chest x-ray shows no acute process. -Cardiac telemetry -Continue to trend troponins -Continue heparin drip, monitor APTT -Continue aspirin 81 p.o. daily, Lipitor 40 mg p.o. daily -Echocardiogram ordered -TSH, A1c and lipid panel ordered -Consult cardiology #. Bilateral lower extremity swelling, rule out DVT -Ordered venous Doppler ultrasound #. Hypertension -On valsartan 80 mg p.o. twice daily, carvedilol 3.125 twice daily F: Oral intake E: None for now N: Heart healthy diet A: self ambulate DVT ppx: IV heparin drip CODE STATUS: Full Discussed with: Patient and patient's Anticipated discharge place: Home Fifi Taylor MD PGY-1 Internal Medicine Dictation was produced using [employer] dictation software. please excuse any grammatical, word or spelling errors. The patient is admitted with an anticipated [greater] than 2 midnight stay as inpatient status for evaluation of NSTEMI. A total of 65 minutes was spent on the care of this complex patient more than 50% of the time was spent in counseling and care coordination. I have seen and evaluated the patient today. Discussed with the resident and agree with the residents finding and plan as documented in the resident's note. Changes highlighted in blue font. Past Medical History Past Medical History: No Reported History, Hypertension Additional Past Medical History / Comment(s): STATES HX OF 2 EPISODES OF INVOLUNTARY MOVEMENTS ALL OVER (2010 & 2018)- TOLD POSSIBLE CHOREA., HAS LAP BAND, EPISODES OF VOMITING. History of Any Multi-Drug Resistant Organisms: None Reported Past Surgical History: Bariatric Surgery, Section Additional Past Surgical History / Comment(s): LAP BAND-2008, PAIN CLINIC PROCEDURES Past Anesthesia/Blood Transfusion Reactions: No Reported Reaction Past Psychological History: No Psychological Hx Reported, Bipolar Smoking Status: Never smoker Past Alcohol Use History: Occasional Past Drug Use History: None Reported - Past Family History Mother Family Medical History: Hypertension Brother(s) Family Medical History: Cancer, Diabetes Mellitus Additional Family Medical History / Comment(s): HEART DISEASE Father Family Medical History: Cancer Additional Family Medical History / Comment(s): SKIN CANCER, HEART DISEASE Medications and Allergies Home Medications Medication Instructions Recorded Confirmed Type No Known Home Medications 10/13/24 10/13/24 History Allergies Allergy/AdvReac Type Severity Reaction Status Date / Time No Known Allergies Allergy Verified 10/13/24 15:12 Physical Exam Vitals: Vital Signs Temp Pulse Resp BP Pulse Ox 10/13/24 15:47 62 18 167/111 98 10/13/24 12:04 16 10/13/24 11:48 97.6 F 65 18 176/122 100 Intake and Output 10/13/24 10/13/24 10/13/24 06:59 14:59 22:59 Other: Weight 90.718 kg Results CBC & Chem 7: 10/13/24 12:30 10/13/24 13:47 Labs: Abnormal Lab Results - Last 24 Hours (Table) 10/13/24 10/13/24 10/13/24 Range/Units 12:30 12:30 12:30 WBC 14.0 H (3.8-10.6) k/uL Neutrophils # 9.3 H (1.3-7.7) k/uL APTT 21.0 L (22.0-30.0) sec Troponin I 0.074 H* (0.000-0.034) ng/mL
--- NOTE | 2024-10-13 19:10 | US ---
EXAMINATION TYPE: US venous doppler duplex LE DATE OF EXAM: 10/13/2024 6:54 PM COMPARISON: NONE CLINICAL INDICATION: Female, 49 years old with history of new bilateral leg edema; patient states daryn ateral leg edema recently. States that she thinks her right ankle is broken. No pain, redness, or war mth. Patient is currently on heparin drip, Pain TECHNIQUE: The lower extremity deep venous system is examined utilizing real time linear array sonog jas with graded compression, color doppler sonography, and spectral doppler. SIDE PERFORMED: Bilateral FINDINGS: VESSELS IMAGED: Common Femoral Vein Deep Femoral Vein Greater Saphenous Vein * Femoral Vein Popliteal Vein Small Saphenous Vein * Proximal Calf Veins (* superficial vessels) Right Leg: Negative for DVT, Color Doppler imaging shows patency of the vessels. Spectral waveforms are within normal limits. Left Leg: Negative for DVT, Color Doppler imaging shows patency of the vessels. Spectral waveforms a re within normal limits. IMPRESSION: No ultrasound evidence for deep venous thrombosis. [facility], , 10/13/2024 7:08 PM
[2024-10-13] MEDS: carvediloL 3.125 MG TAB PO SCH (20:08)
[2024-10-13] MEDS: VALSARTAN 80 MG TAB PO SCH (20:08)
[2024-10-14] MEDS: ACETAMINOPHEN TAB 325 MG TAB PO PRN (05:43)
[2024-10-14] MEDS ORDERED: carvediloL 3.125 MG TAB PO SCH (06:00)
[2024-10-14] MEDS ORDERED: VALSARTAN 80 MG TAB PO SCH (06:00)
[2024-10-14 06:10] LABS: Basophils % (A) 0 %; Eosinophils # (A) 0.1 k/uL (0-0.7); Eosinophils % (A) 1 %; HCT 41.5 % (34.0-46.0); HGB 13.8 gm/dL (11.4-16.0); Lymphocytes # (A) 2.6 k/uL (1.0-4.8); Lymphocytes % (A) 24 %; MCH 30.7 pg (25.0-35.0); MCHC 33.2 g/dL (31.0-37.0); MCV 92.4 fL (80.0-100.0); Mean Platelet Volume 7.3; Monocytes # (A) 0.4 k/uL (0-1.0); Monocytes % (A) 4 %; Neutrophils # (A) 7.6 k/uL (1.3-7.7); Neutrophils % (A) 70 %; Platelet Count 317 k/uL (150-450); RBC 4.49 m/uL (3.80-5.40); RDW 12.2 % (11.5-15.5); WBC 10.9 k/uL (3.8-10.6)
[2024-10-14 06:24] LABS: African American GFR (CKD) >90 (>60 ml/min/1.73 sqM); Anion Gap 6 mmol/L; Blood Urea Nitrogen 13 mg/dL (7-17); Carbon Dioxide 27 mmol/L (22-30); Chloride 102 mmol/L (98-107); Glucose 98 mg/dL (74-99); Non-African American GFR(CKD) >90 (>60 ml/min/1.73 sqM); Potassium 3.9 mmol/L (3.5-5.1); Sodium 135 mmol/L (137-145)
[2024-10-14 06:30] LABS: Partial Thromboplastin Time 30.9 sec (22.0-30.0); Prothrombin Time 10.9 sec (10.0-12.5)
[2024-10-14] MEDS: ASPIRIN 81 MG PO SCH (08:01)
[2024-10-14] MEDS: ATORVASTATIN 40 MG TAB PO SCH (08:01)
--- NOTE | 2024-10-14 10:04 | CA ---
Transthoracic Echo Report Name: Trish Gold Age: 49 Gender: F : 1975 Exam Date: 10/14/2024 08:00 Exam Location: [facility] Ht (in): 67 Wt (lb): 200 Ordering Physician: Zoltan Winters MD Attending/Referring Phys: [id number], [facility] Sales Consultant Alyssa Dhaliwal RDCS Procedure CPT: Indications: nstemi Cardiac Hx: HTN Technical Quality: Good Contrast 1: Total Dose (mL): Contrast 2: Total Dose (mL): MEASUREMENTS (Male / Female) Normal Values 2D ECHO LV Diastolic Diameter PLAX 5.2 cm 4.2 - 5.9 / 3.9 - 5.3 cm LV Systolic Diameter PLAX 3.8 cm IVS Diastolic Thickness 0.9 cm 0.6 - 1.0 / 0.6 - 0.9 cm LVPW Diastolic Thickness 0.9 cm 0.6 - 1.0 / 0.6 - 0.9 cm LV Relative Wall Thickness 0.3 RV Internal Dim ED PLAX 2.9 cm LVOT Diameter 1.9 cm LA Systolic Diameter LX 3.1 cm 3.0 - 4.0 / 2.7 - 3.8 cm LV Diastolic Volume MOD BP 135.4 cm??? 67 - 155 / 56 - 104 cm??? LV Systolic Volume MOD BP 67.5 cm??? / - 49 cm??? LV Ejection Fraction MOD BP 50.1 % >= 55 % LV Cardiac Index MOD BP 2454.9 cm???/min???m??? LV Diastolic Volume MOD 4C 120.2 cm??? LV Systolic Volume MOD 4C 59.8 cm??? LV Ejection Fraction MOD 4C 50.3 % LV Cardiac Index MOD 4C 2187.2 cm???/min???m??? LV Diastolic Length 4C 8.6 cm LV Systolic Length 4C 6.5 cm LV Diastolic Volume MOD 2C 141.1 cm??? LV Systolic Volume MOD 2C 71.2 cm??? LV Ejection Fraction MOD 2C 49.6 % LV Cardiac Index MOD 2C 2532.6 cm???/min???m??? LV Diastolic Length 2C 9.4 cm LV Systolic Length 2C 7.1 cm LA Volume 45.3 cm??? 18 - 58 / 22 - 52 cm??? LA Volume Index 21.6 cm???/m??? 16 - 28 cm???/m??? DOPPLER MV Area PHT 3.1 cm??? Mitral E Point Velocity 36.8 cm/s Mitral A Point Velocity 60.9 cm/s Mitral E to A Ratio 0.6 MV Deceleration Time 248.1 ms FINDINGS Left Ventricle Left ventricular ejection fraction is estimated at 50 %. Normal Left ventricular size, wall thickness, systolic function with possible inferior basal hypokinesia, mildly increased left ventricular wall thickness. Right Ventricle Normal right ventricular size and function. Unable to estimate the right ventricular systolic pressure. Right Atrium Normal right atrial size. Left Atrium Normal left atrial size. Mitral Valve Mitral valve thickened. . No mitral stenosis. No mitral regurgitation. Aortic Valve Trileaflet aortic valve. No aortic stenosis. No aortic regurgitation. Tricuspid Valve Structurally normal tricuspid valve. No tricuspid stenosis. Trace tricuspid regurgitation. Pulmonic Valve Structurally normal pulmonic valve. No pulmonic stenosis. Trace pulmonic regurgitation. Pericardium No pericardial effusion. No pleural effusion. Aorta Normal size aortic root and proximal ascending aorta. CONCLUSIONS Left ventricle size is normal systolic function is fairly well-preserved with a questionable mid and inferior basal hypokinesia. No significant abnormality on the Doppler exam. No pericardial effusion Previewed by: Dr. Robinson Russo MD (Electronically Signed) Final Date: 14 October 2024 10:03
[2024-10-14 10:38] LABS: Chol/HDL Ratio 4.54 Ratio; LDL Cholesterol,Calculated 126.6 mg/dL (0.0-131.0)
[2024-10-14] MEDS ORDERED: ALPRAZolam 0.25 MG TAB PO PRN (12:55)
[2024-10-14] MEDS ORDERED: ALPRAZolam 0.5 MG TAB PO PRN (12:55)
[2024-10-14] MEDS ORDERED: NITROGLYCERIN SL TABS 0.4 MG TAB SUBLINGUAL PRN (12:55)
--- NOTE | 2024-10-14 12:55 | P.CRDCN ---
History of Present Illness History of present illness: HISTORY OF PRESENT ILLNESS: This is a 49-year-old female with a past medical history significant for hypertension and hyperlipidemia. Patient follows in the office with Dr. Liao but has not been seen in the office since November 2022. We have been asked to see the patient in consultation for non-STEMI. Patient examined at the bedside. Patient presented to the hospital with a chief complaint of chest discomfort. Patient also reports having a headache. She states the symptoms have been going on for a while. However over the course of the past week she has been having constant chest pressure. The patient does have a history of hypertension. However she lost her insurance and has not been taking any blood pressure medications. Patient's blood pressures on admission were noted to be 176/122. She was started on losartan and carvedilol. Systolic blood pressures today are in the 140s. DIAGNOSTICS: - EKG reveals sinus mechanism with no signs of acute ischemia. - Chest xray negative for acute process - Laboratory data: WBC 10.9. Hemoglobin 13.8. Platelet count 317. Sodium 135. Potassium 3.9. BUN 13. Creatinine 0.62. Hemoglobin A1c 5.6. Troponin 0.074. 0.065. Triglycerides 178. Cholesterol 208. LDL 126. TSH 1.860. - Current home cardiac medications include none - Echocardiogram obtained this admission reveals ejection fraction 50% with possible inferior basal hypokinesia, mildly increased left ventricular wall thickness, trace TR, trace pulmonic regurgitation. - Patient underwent stress testing in December 2021 which was negative for ischemia REVIEW OF SYSTEMS: At the time of my exam: CONSTITUTIONAL: Denies fever or chills. HEENT: Denies blurred vision, vision changes, or eye pain. Denies hemoptysis CARDIOVASCULAR: Denies chest pain. Denies orthopnea. Denies PND. Denies palpitations RESPIRATORY: Denies shortness of breath. GASTROINTESTINAL: Denies abdominal pain. Denies nausea or vomiting. HEMATOLOGIC: Denies bleeding disorders. GENITOURINARY: Denies any blood in urine. SKIN: Denies pruitis. Denies rash. PHYSICAL EXAM: VITAL SIGNS: Reviewed. GENERAL: Well-developed in no acute distress. HEENT: Head is normocephalic. Pupils are equal, round. Sclerae anicteric. Mucous membranes of the mouth are moist. Neck supple. No JVD or thyromegaly LUNGS: Respirations even and unlabored. Lungs essentially clear to auscultation bilaterally. HEART: Regular rate and rhythm. S1 and S2 heard. ABDOMEN: Soft. Nondistended. Nontender. EXTREMITIES: Normal range of motion. No clubbing or cyanosis. Peripheral pulses intact. No lower extremity edema NEUROLOGIC: Awake and alert. Oriented x 3. ASSESSMENT: Hypertensive emergency Elevated troponins, suspect secondary to above, however cannot rule out underlying CAD History of hypertension, not taking medications on an outpatient basis Hyperlipidemia Medication noncompliance, secondary to financial constraints and loss of medical insurance PLAN: 2D echo obtained and reviewed Discontinue IV heparin Continue current cardiac medications including aspirin, atorvastatin, carvedilol, and valsartan Continue to monitor blood pressure Patient to undergo cardiac catheterization on Saturday with Dr. Liao Further recommendations pending patient course Nurse practitioner note has been reviewed by physician. Signing provider agrees with the documented findings, assessment, and plan of care documented by EMERGENCY ROOM REGISTERED NURSE as a scribe. Past Medical History Past Medical History: No Reported History, Hypertension Additional Past Medical History / Comment(s): STATES HX OF 2 EPISODES OF INVOLUNTARY MOVEMENTS ALL OVER (2010 & 2017)- TOLD POSSIBLE CHOREA., HAS LAP BAND, EPISODES OF VOMITING. History of Any Multi-Drug Resistant Organisms: None Reported Past Surgical History: Bariatric Surgery, Section Additional Past Surgical History / Comment(s): LAP BAND-2008, PAIN CLINIC PROCEDURES Past Anesthesia/Blood Transfusion Reactions: No Reported Reaction Past Psychological History: No Psychological Hx Reported, Bipolar Smoking Status: Never smoker Past Alcohol Use History: Occasional Past Drug Use History: None Reported - Past Family History Mother Family Medical History: Hypertension Brother(s) Family Medical History: Cancer, Diabetes Mellitus Additional Family Medical History / Comment(s): HEART DISEASE Father Family Medical History: Cancer Additional Family Medical History / Comment(s): SKIN CANCER, HEART DISEASE Medications and Allergies Home Medications Medication Instructions Recorded Confirmed Type No Known Home Medications 10/13/24 10/13/24 History Allergies Allergy/AdvReac Type Severity Reaction Status Date / Time No Known Allergies Allergy Verified 10/13/24 15:12 Physical Exam Vitals: Vital Signs Temp Pulse Pulse Resp BP BP BP 10/14/24 12:21 97 10/14/24 11:40 97.7 F 97 14 144/95 10/14/24 08:00 79 10/14/24 07:58 79 18 154/77 10/14/24 04:00 86 15 132/88 10/14/24 01:54 16 10/13/24 23:09 77 15 131/83 10/13/24 19:50 97.8 F 76 17 158/93 171/121 10/13/24 19:48 16 10/13/24 17:38 98.1 F 68 14 177/104 10/13/24 17:22 78 18 162/104 10/13/24 15:47 62 18 167/111 Pulse Ox 10/14/24 12:21 10/14/24 11:40 10/14/24 08:00 10/14/24 07:58 97 10/14/24 04:00 98 10/14/24 01:54 10/13/24 23:09 97 10/13/24 19:50 96 10/13/24 19:48 10/13/24 17:38 98 10/13/24 17:22 99 10/13/24 15:47 98 Intake and Output 10/13/24 10/14/24 10/14/24 22:59 06:59 14:59 Intake Total 58.167 115.125 Balance 58.167 115.125 Intake: Intake, IV Titration 58.167 115.125 Amount Heparin Sod,Pork in 0.45% 58.167 115.125 NaCl 25,000 unit In 0.45 % NaCl 1 250ml.bag @ 11. 0231 UNITS/KG/HR 10 mls/ hr IV .Q24H [facility] Rx#: [id number] Other: # Voids 3 Weight 90.718 kg 97.3 kg Results 10/14/24 05:37 10/14/24 05:37 Cardiac Enzymes 10/13/24 10/13/24 10/13/24 Range/Units 12:30 13:47 15:47 AST 21 (14-36) U/L Troponin I 0.074 H* 0.065 H* (0.000-0.034) ng/mL Coagulation 10/13/24 10/13/24 10/14/24 Range/Units 12:30 20:54 05:37 PT 10.7 10.9 (10.0-12.5) sec APTT 21.0 L 27.6 30.9 H (22.0-30.0) sec Lipids 03/19/25 Range/Units 05:37 Triglycerides 178.00 H (0.00-149.00) mg/dL Cholesterol 208.00 H (0.00-200.00) mg/dL HDL Cholesterol 45.80 (40.00-60.00) mg/dL Cholesterol/HDL Ratio 4.54 Ratio CBC 10/13/24 10/14/24 Range/Units 12:30 05:37 WBC 14.0 H 10.9 H (3.8-10.6) k/uL RBC 4.61 4.49 (3.80-5.40) m/uL Hgb 13.9 13.8 (11.4-16.0) gm/dL Hct 43.8 41.5 (34.0-46.0) % Plt Count 357 317 (150-450) k/uL Comprehensive Metabolic Panel 10/13/24 10/14/24 Range/Units 13:47 05:37 Sodium 137 135 L (137-145) mmol/L Potassium 3.9 3.9 (3.5-5.1) mmol/L Chloride 101 102 (98-107) mmol/L Carbon Dioxide 28 27 (22-30) mmol/L BUN 14 13 (7-17) mg/dL Creatinine 0.63 0.62 (0.52-1.04) mg/dL Glucose 93 98 (74-99) mg/dL Calcium 9.1 9.0 (8.4-10.2) mg/dL AST 21 (14-36) U/L ALT 24 (4-34) U/L Alkaline Phosphatase 60 (38-126) U/L Total Protein 7.5 (6.3-8.2) g/dL Albumin 4.1 (3.5-5.0) g/dL Current Medications Generic Name Dose Route Start Last Admin Trade Name Freq PRN Reason Stop Dose Admin Acetaminophen 650 mg 10/13/24 15:56 10/14/24 05:43 Acetaminophen Tab 325 Mg Tab PO 650 mg Q6HR PRN Administration Mild Pain or Fever > 100.5 Aspirin 81 mg 10/14/24 09:00 10/14/24 08:01 Aspirin 81 Mg PO 81 mg DAILY [facility] Administration Atorvastatin Calcium 40 mg 10/14/24 09:00 10/14/24 08:01 Atorvastatin 40 Mg Tab PO 40 mg DAILY [facility] Administration Carvedilol 3.125 mg 10/13/24 21:00 10/14/24 08:01 Carvedilol 3.125 Mg Tab PO 3.125 mg BID [facility] Administration Heparin Sodium (Porcine) 0 unit 10/13/24 14:50 Heparin Sodium 1,000 Un/Ml (10ml Vl) IV PER PROTOCOL PRN Low PTT Protocol Morphine Sulfate 4 mg 10/13/24 15:56 Morphine Sulfate 4 Mg/Ml Syringe IV Q4HR PRN Severe Pain (Scale 7 to 10) Naloxone HCl 0.2 mg 10/13/24 15:56 Naloxone 0.4 Mg/Ml 1 Ml Vial IV Q2M PRN Opioid Reversal Nitroglycerin 0.4 mg 10/13/24 13:18 10/13/24 14:46 Nitroglycerin Sl Tabs 0.4 Mg Tab SUBLINGUAL 0.4 mg Q5M PRN Administration Chest Pain Valsartan 80 mg 10/13/24 21:00 10/14/24 08:01 Valsartan 80 Mg Tab PO 80 mg BID DENNIS Administration Intake and Output 10/13/24 10/14/24 10/14/24 22:59 06:59 14:59 Intake Total 58.167 115.125 Balance 58.167 115.125 Intake: Intake, IV Titration 58.167 115.125 Amount Heparin Sod,Pork in 0.45% 58.167 115.125 NaCl 25,000 unit In 0.45 % NaCl 1 250ml.bag @ 11. 0231 UNITS/KG/HR 10 mls/ hr IV .Q24H [facility] Rx#: [id number] Other: # Voids 3 Weight 90.718 kg 97.3 kg 10/14/24 05:37 10/14/24 05:37
--- NOTE | 2024-10-14 16:21 | P.PN ---
Subjective Progress Note Date: 10/14/24 10/14/2024 patient seen and examined at bedside. No acute events overnight. No new complaints. Labs today: WBC 10.9, hemoglobin 13.8, platelet count 217,000, sodium 135, potassium 3.9, bicarb 27, calcium 9, creatinine 0.62, BUN 13. TSH 1.86. Troponin decreased to 0.065. Coagulation studies show: PTT 30.9 Imaging: Venous Doppler ultrasound bilateral lower extremity showed negative for DVT. Echocardiogram showed left ventricular ejection fraction estimated at 50% with a questionable mid inferior basal hypokinesia Review of systems: Pertinent positives and negatives as discussed in HPI, a complete review of systems was performed and all other systems are negative. Physical examination: Vital signs reviewed General: non toxic, no distress, appears at stated age, obese Derm: no unusual rashes/lesions, warm Head: atraumatic, normocephalic, symmetric Eyes: EOMI, anicteric sclera, pupils equal round reactive to light ENT: Nose and ears atraumatic Neck: No cervical lymphadenopathy, trachea midline, supple Mouth: no lip lesion, mucus membranes moist Cardiovascular: S1S2 reg, no murmur Lungs: CTA bilateral, no rhonchi, no rales, no accessory muscle use Abdominal: soft, nondistended, nontender to palpation, no guarding Ext: muscle strength 5 out of 5 in all 4 extremities grossly, no gross muscle atrophy, no contractures, positive dorsalis pedis pulse bilateral, bilateral lower extremity +1 pitting edema worse on the right than left Neuro: CN II-XI grossly intact, no gross focal neuro deficits Psych: Alert and oriented x 3, appropriate affect and mood Assessment/Plan: 49-year-old female with hypertension here for evaluation of chest pressure. Found to have NSTEMI on labs The patient is admitted with an anticipated greater than 2 midnight stay for evaluation of NSTEMI Active: #. NSTEMI likely type I #. Leukocytosis, reactive -EKG showed sinus rhythm with a rate of 68, normal axis, no ST-T changes, good R wave progression, QTc 453 MS -Chest x-ray shows no acute process. -Cardiac telemetry -Troponins peaked -Continue heparin drip, monitor APTT -Continue aspirin 81 p.o. daily, Lipitor 40 mg p.o. daily -Echocardiogram showed left ventricular ejection fraction estimated at 50% with a questionable mid inferior basal hypokinesia -TSH normal -A1c and lipid panel ordered -Consult cardiology. Plan for cath on Saturday #. Bilateral lower extremity swelling, DVT, ruled out, improved -Venous Doppler ultrasound bilateral lower extremity showed negative for DVT -Monitor for now #. Hypertension -On valsartan 80 mg p.o. twice daily, carvedilol 3.125 twice daily F: Oral intake E: None for now N: Heart healthy diet A: self ambulate DVT ppx: IV heparin drip CODE STATUS: Full Anticipated discharge place: Home Fifi Taylor MD PGY-1/Manager Of [employer] Dictation was produced using [employer] dictation software. please excuse any grammatical, word or spelling errors. I have seen and evaluated the patient today. Discussed with the resident and agree with the residents finding and plan as documented in the resident's note. Changes highlighted in blue font. Objective - Vital Signs Vital signs: Vital Signs Temp 97.8 F 10/13/24 19:50 Pulse 86 10/14/24 04:00 Resp 15 10/14/24 04:00 BP 132/88 10/14/24 04:00 Pulse Ox 98 10/14/24 04:00 FiO2 Intake & Output 10/13/24 10/14/24 10/14/24 18:59 06:59 18:59 Intake Total 173.292 Balance 173.292 Weight 90.718 kg 97.3 kg Intake: Intake, IV Titration 173.292 Amount Heparin Sod,Pork in 0.45% 173.292 NaCl 25,000 unit In 0.45 % NaCl 1 250ml.bag @ 11. 0231 UNITS/KG/HR 10 mls/ hr IV .Q24H [facility] Rx#: [id number] Other: # Voids 3 - Labs CBC & Chem 7: 10/14/24 05:37 10/14/24 05:37 Labs: Abnormal Lab Results - Last 24 Hours (Table) 10/13/24 10/13/24 10/13/24 Range/Units 12:30 12:30 12:30 WBC 14.0 H (3.8-10.6) k/uL Neutrophils # 9.3 H (1.3-7.7) k/uL APTT 21.0 L (22.0-30.0) sec Sodium (137-145) mmol/L Troponin I 0.074 H* (0.000-0.034) ng/mL 10/13/24 10/14/24 10/14/24 Range/Units 15:47 05:37 05:37 WBC 10.9 H (3.8-10.6) k/uL Neutrophils # (1.3-7.7) k/uL APTT 30.9 H (22.0-30.0) sec Sodium (137-145) mmol/L Troponin I 0.065 H* (0.000-0.034) ng/mL 10/14/24 Range/Units 05:37 WBC (3.8-10.6) k/uL Neutrophils # (1.3-7.7) k/uL APTT (22.0-30.0) sec Sodium 135 L (137-145) mmol/L Troponin I (0.000-0.034) ng/mL
[2024-10-14 20:47] VITALS: RESP 16
[2024-10-15 06:56] LABS: African American GFR (CKD) >90 (>60 ml/min/1.73 sqM); Anion Gap 6 mmol/L; Blood Urea Nitrogen 25 mg/dL (7-17); Carbon Dioxide 27 mmol/L (22-30); Chloride 104 mmol/L (98-107); Glucose 106 mg/dL (74-99); Non-African American GFR(CKD) >90 (>60 ml/min/1.73 sqM); Potassium 4.2 mmol/L (3.5-5.1); Sodium 137 mmol/L (137-145)
--- NOTE | 2024-10-15 11:34 | P.PN ---
Subjective HISTORY OF PRESENT ILLNESS: This is a 49-year-old female with a past medical history significant for hypertension and hyperlipidemia. Patient follows in the office with Dr. Liao but has not been seen in the office since November 2022. We have been asked to see the patient in consultation for non-STEMI. Patient examined at the bedside. Patient presented to the hospital with a chief complaint of chest discomfort. Patient also reports having a headache. She states the symptoms have been going on for a while. However over the course of the past week she has been having constant chest pressure. The patient does have a history of hypertension. However she lost her insurance and has not been taking any blood pressure medications. Patient's blood pressures on admission were noted to be 176/122. She was started on losartan and carvedilol. Systolic blood pressures today are in the 140s. DIAGNOSTICS: - EKG reveals sinus mechanism with no signs of acute ischemia. - Chest xray negative for acute process - Laboratory data: WBC 10.9. Hemoglobin 13.8. Platelet count 317. Sodium 135. Potassium 3.9. BUN 13. Creatinine 0.62. Hemoglobin A1c 5.6. Troponin 0.074. 0.065. Triglycerides 178. Cholesterol 208. LDL 126. TSH 1.860. - Current home cardiac medications include none - Echocardiogram obtained this admission reveals ejection fraction 50% with possible inferior basal hypokinesia, mildly increased left ventricular wall thic kness, trace TR, trace pulmonic regurgitation. - Patient underwent stress testing in December 2021 which was negative for ischemia 10/15/2024 Patient examined this morning the bedside. Patient currently denies chest pain or pressure. She denies shortness of breath. Vital signs are stable. PHYSICAL EXAM: VITAL SIGNS: Reviewed. GENERAL: Well-developed in no acute distress. HEENT: Head is normocephalic. Pupils are equal, round. Sclerae anicteric. Mucous membranes of the mouth are moist. Neck supple. No JVD or thyromegaly LUNGS: Respirations even and unlabored. Lungs essentially clear to auscultation bilaterally. HEART: Regular rate and rhythm. S1 and S2 heard. ABDOMEN: Soft. Nondistended. Nontender. EXTREMITIES: Normal range of motion. No clubbing or cyanosis. Peripheral pulses intact. No lower extremity edema NEUROLOGIC: Awake and alert. Oriented x 3. ASSESSMENT: Hypertensive emergency Elevated troponins, suspect secondary to above, however cannot rule out underlying CAD History of hypertension, not taking medications on an outpatient basis Hyperlipidemia Medication noncompliance, secondary to financial constraints and loss of medical insurance PLAN: 2D echo obtained and reviewed Continue current cardiac medications including aspirin, atorvastatin, carvedilol, and valsartan Continue to monitor blood pressure Patient to undergo cardiac catheterization on Saturday with Dr. Liao Further recommendations pending patient course Nurse practitioner note has been reviewed by physician. Signing provider agrees with the documented findings, assessment, and plan of care documented by NET DEVELOPER CONSULTANT as a scribe. Objective - Vital Signs Vital signs: Vital Signs Temp 97.6 F 10/15/24 08:00 Pulse 81 10/15/24 08:00 Resp 16 10/15/24 08:00 BP 133/93 10/15/24 08:00 Pulse Ox 95 10/15/24 08:00 FiO2 Intake & Output 10/14/24 10/15/24 10/15/24 18:59 06:59 18:59 Intake Total 120 Balance 120 Weight 96.5 kg Intake: Oral 120 Other: # Voids 2 - Labs CBC & Chem 7: 10/14/24 05:37 10/15/24 06:26 Labs: Abnormal Lab Results - Last 24 Hours (Table) 10/15/24 Range/Units 06:26 BUN 25 H (7-17) mg/dL Glucose 106 H (74-99) mg/dL
--- NOTE | 2024-10-15 13:01 | P.PN ---
Subjective Progress Note Date: 10/15/24 10/14/2024 patient seen and examined at bedside. No acute events overnight. No new complaints. Labs today: WBC 10.9, hemoglobin 13.8, platelet count 217,000, sodium 135, potassium 3.9, bicarb 27, calcium 9, creatinine 0.62, BUN 13. TSH 1.86. Troponin decreased to 0.065. Coagulation studies show: PTT 30.9 Imaging: Venous Doppler ultrasound bilateral lower extremity showed negative for DVT. Echocardiogram showed left ventricular ejection fraction estimated at 50% with a questionable mid inferior basal hypokinesia 10/23/2024 patient seen and examined at bedside. No acute events overnight. Patient not complaining of any chest pain lightheadedness nausea or vomiting Labs: Sodium 137, potassium 4.2, BUN 25, creatinine 0.68, glucose 106, calcium 9. Lipid panel shows elevated triglycerides at 178 and elevated cholesterol 208 Review of systems: Pertinent positives and negatives as discussed in HPI, a complete review of systems was performed and all other systems are negative. Physical examination: Vital signs reviewed General: non toxic, no distress, appears at stated age, obese Derm: no unusual rashes/lesions, warm Head: atraumatic, normocephalic, symmetric Eyes: EOMI, anicteric sclera, pupils equal round reactive to light ENT: Nose and ears atraumatic Neck: No cervical lymphadenopathy, trachea midline, supple Mouth: no lip lesion, mucus membranes moist Cardiovascular: S1S2 reg, no murmur Lungs: CTA bilateral, no rhonchi, no rales, no accessory muscle use Abdominal: soft, nondistended, nontender to palpation, no guarding Ext: muscle strength 5 out of 5 in all 4 extremities grossly, no gross muscle atrophy, no contractures, positive dorsalis pedis pulse bilateral, bilateral lower extremity +1 pitting edema worse on the right than left Neuro: CN II-XI grossly intact, no gross focal neuro deficits Psych: Alert and oriented x 3, appropriate affect and mood Assessment/Plan: 49-year-old female with hypertension here for evaluation of chest pressure. Found to have NSTEMI on labs The patient is admitted with an anticipated greater than 2 midnight stay for evaluation of NSTEMI Active: #. NSTEMI possibly type I #. Leukocytosis, reactive -EKG showed sinus rhythm with a rate of 68, normal axis, no ST-T changes, good R wave progression, QTc 453 MS -Chest x-ray shows no acute process. -Cardiac telemetry -Troponins peaked -Heparin drip discontinued by cardiology -Continue aspirin 81 p.o. daily, Lipitor 40 mg p.o. daily -Echocardiogram showed left ventricular ejection fraction estimated at 50% with a questionable mid inferior basal hypokinesia -TSH normal -A1c and lipid panel ordered -Consult cardiology. Plan for cath on Saturday #. Bilateral lower extremity swelling, DVT, ruled out, improved -Venous Doppler ultrasound bilateral lower extremity showed negative for DVT -Monitor for now #. Hypertension -On valsartan 80 mg p.o. twice daily, carvedilol 3.125 twice daily F: Oral intake E: None for now N: Heart healthy diet A: self ambulate DVT ppx: SCDs CODE STATUS: Full Anticipated discharge place: Home Fifi Taylor MD PGY-1/Squirrel Man Dictation was produced using [employer] dictation software. please excuse any grammatical, word or spelling errors. I have seen and evaluated the patient today. Discussed with the resident and agree with the residents finding and plan as documented in the resident's note. Changes highlighted in blue font. Objective - Vital Signs Vital signs: Vital Signs Temp 97.8 F 10/15/24 04:00 Pulse 89 10/15/24 04:00 Resp 16 10/15/24 04:00 BP 116/71 10/15/24 04:00 Pulse Ox 99 10/15/24 04:00 FiO2 Intake & Output 10/14/24 10/14/24 10/15/24 06:59 18:59 06:59 Intake Total 173.292 120 Balance 173.292 120 Weight 97.3 kg 96.5 kg Intake: Intake, IV Titration 173.292 Amount Heparin Sod,Pork in 0.45% 173.292 NaCl 25,000 unit In 0.45 % NaCl 1 250ml.bag @ 11. 0231 UNITS/KG/HR 10 mls/ hr IV .Q24H DENNIS Rx#: [id number] Oral 120 Other: # Voids 3 2 - Labs CBC & Chem 7: 10/14/24 05:37 10/15/24 06:26 Labs: Abnormal Lab Results - Last 24 Hours (Table) 10/14/24 Range/Units 05:37 Triglycerides 178.00 H (0.00-149.00) mg/dL Cholesterol 208.00 H (0.00-200.00) mg/dL
[2024-10-15] MEDS: SODIUM CHLORIDE 0.9% 1,000 ML in EMPTY BAG 1 BAG IV SCH (23:35)
[2024-10-16] MEDS: ATORVASTATIN 80 MG TAB PO ONE (06:08)
[2024-10-16] MEDS: ASPIRIN 325 MG TAB PO ONE (06:08)
[2024-10-16 06:59] VITALS: TEMP 97.8
[2024-10-16 07:23] LABS: African American GFR (CKD) >90 (>60 ml/min/1.73 sqM); Anion Gap 7 mmol/L; Blood Urea Nitrogen 18 mg/dL (7-17); Carbon Dioxide 29 mmol/L (22-30); Chloride 102 mmol/L (98-107); Glucose 104 mg/dL (74-99); Non-African American GFR(CKD) >90 (>60 ml/min/1.73 sqM); Potassium 4.5 mmol/L (3.5-5.1); Sodium 138 mmol/L (137-145)
[2024-10-16] MEDS: IV FLUID CONTINUATION 1,000 ML IV ONE (07:45)
[2024-10-16] MEDS: MIDAZOLAM 2 MG/2 ML VIAL IVP ONE (07:52)
[2024-10-16] MEDS: fentaNYL (PF) 50 MCG/ML 2 ML AMP IVP ONE (07:52)
[2024-10-16] MEDS: LIDOCAINE 1% INJ 10MG/ML (20 ML MDV) SQ ONE (07:56)
[2024-10-16] MEDS: VERAPAMIL SYRINGE (5 MG/10 ML) INTRAARTER ONE (07:57)
[2024-10-16] MEDS: HEPARIN SODIUM 1,000 UN/ML (10ML VL) IV ONE (08:00)
[2024-10-16] MEDS: HEPARIN SODIUM,PORCINE (1 ML) 2,500 UNIT in SODIUM CHLORIDE 0.9% 250 ML IRRIGATION PRN (08:04)
[2024-10-16] MEDS: HEPARIN SODIUM,PORCINE 10,000 UNIT in SODIUM CHLORIDE 0.9% 1,000 ML IRRIGATION PRN (08:04)
[2024-10-16] MEDS: MORPHINE SULFATE 4 MG/ML SYRINGE IVP ONE (08:05)
[2024-10-16] MEDS ORDERED: RX INFO: IV CONTRAST WAS GIVEN 1 EACH MISC MISCELLANE PRN (08:07)
[2024-10-16] MEDS: IOPAMIDOL-370 100ML BTL INJ ONE (08:10)
--- NOTE | 2024-10-16 08:11 | P.PCN ---
Date of Procedure: 10/16/24 Operative Findings: CARDIAC CATHETERIZATION PERFORMING PHYSICIAN: Sohail Liao MD, RPVI PROCEDURE PERFORMED: 1. Selective right and left coronary angiogram 2. Left heart catheterization 3. Ultrasound-guided access of the right radial artery INDICATION: Acute non-ST elevation myocardial infarction COMPLICATION: None APPROACH: Right radial artery LEVEL OF SEDATION: Moderate with a sedation length of 12 minutes PROCEDURE DESCRIPTION: After obtaining an informed consent, the patient was brought to cardiac microbiological laboratory technician. Local anesthesia was performed using lidocaine subcutaneously. The right radial artery was cannulated using Seldinger technique, under ultrasound guidance, the guidewire passed easily, following that we advanced a 5-Trinidadian sheath dilator assembly, the wire and dilator were removed and sheath was flushed. Following that, 2 mg of verapamil along with 3000 unit heparin were given. Selective right and left coronary angiogram using a 5-Trinidadian JR4 and JL 3.5 catheters. Following that we did left heart catheterization using 5-Trinidadian pigtail catheter. The procedure was completed there was no complication. SELECTIVE CORONARY ANGIOGRAM: The right coronary artery: Large-caliber vessel nondominant vessel appears to be angiographically normal Left main: Has mild disease only The left circumflex: Large caliber vessel nondominant vessel appears to be angiographically normal and gives rise into first and second obtuse marginal branches both appear to be normal The left anterior descending artery: Large caliber vessel appears to be angiographically normal with no evidence of high-grade stenosis HEMODYNAMICS: The LVEDP was 12 mmHg with no gradient was identified across aortic valve CONCLUSION: 1. Mild CAD 2. Normal left-sided filling pressure POSTPROCEDURE MANAGEMENT: Medical treatment
[2024-10-16] MEDS: SODIUM CHLORIDE 0.9% 1,000 ML IV SCH (09:31)
--- NOTE | 2024-10-16 09:56 | P.PN ---
Subjective HISTORY OF PRESENT ILLNESS: This is a 49-year-old female with a past medical history significant for hypertension and hyperlipidemia. Patient follows in the office with Dr. Liao but has not been seen in the office since November 2022. We have been asked to see the patient in consultation for non-STEMI. Patient examined at the bedside. Patient presented to the hospital with a chief complaint of chest discomfort. Patient also reports having a headache. She states the symptoms have been going on for a while. However over the course of the past week she has been having constant chest pressure. The patient does have a history of hypertension. However she lost her insurance and has not been taking any blood pressure medications. Patient's blood pressures on admission were noted to be 176/122. She was started on losartan and carvedilol. Systolic blood pressures today are in the 140s. DIAGNOSTICS: - EKG reveals sinus mechanism with no signs of acute ischemia. - Chest xray negative for acute process - Laboratory data: WBC 10.9. Hemoglobin 13.8. Platelet count 317. Sodium 135. Potassium 3.9. BUN 13. Creatinine 0.62. Hemoglobin A1c 5.6. Troponin 0.074. 0.065. Triglycerides 178. Cholesterol 208. LDL 126. TSH 1.860. - Current home cardiac medications include none - Echocardiogram obtained this admission reveals ejection fraction 50% with possible inferior basal hypokinesia, mildly increased left ventricular wall thic kness, trace TR, trace pulmonic regurgitation. - Patient underwent stress testing in December 2021 which was negative for ischemia 10/15/2024 Patient examined this morning the bedside. Patient currently denies chest pain or pressure. She denies shortness of breath. Vital signs are stable. 10/16/2024 Patient examined this morning the bedside. She underwent cardiac catheterization this morning revealing mild CAD. Blood pressures are well- controlled. She denies chest pain or pressure. She denies shortness of breath. PHYSICAL EXAM: VITAL SIGNS: Reviewed. GENERAL: Well-developed in no acute distress. HEENT: Head is normocephalic. Pupils are equal, round. Sclerae anicteric. Mucous membranes of the mouth are moist. Neck supple. No JVD or thyromegaly LUNGS: Respirations even and unlabored. Lungs essentially clear to auscultation bilaterally. HEART: Regular rate and rhythm. S1 and S2 heard. ABDOMEN: Soft. Nondistended. Nontender. EXTREMITIES: Normal range of motion. No clubbing or cyanosis. Peripheral pulses intact. No lower extremity edema NEUROLOGIC: Awake and alert. Oriented x 3. ASSESSMENT: Hypertensive emergency Elevated troponins, suspect secondary to above, postcardiac catheterization revealing mild CAD History of hypertension, not taking medications on an outpatient basis Hyperlipidemia Medication noncompliance, secondary to financial constraints and loss of medical insurance PLAN: Discontinue aspirin Discontinue carvedilol Increase valsartan to 320 mg daily Change statin therapy to rosuvastatin 20 mg upon discharge Patient is stable for discharge home today from a cardiac standpoint Patient to follow-up postdischarge in the office with Dr. Diaz Nurse practitioner note has been reviewed by physician. Signing provider agrees with the documented findings, assessment, and plan of care documented by BOAT WRAPPER as a scribe. Objective - Vital Signs Vital signs: Vital Signs Temp 97.8 F 10/16/24 04:00 Pulse 75 10/16/24 04:00 Resp 16 10/16/24 04:00 BP 133/90 10/16/24 04:00 Pulse Ox 97 10/16/24 08:35 FiO2 Intake & Output 10/15/24 10/16/24 10/16/24 18:59 06:59 18:59 Intake Total 150 Balance 150 Weight 95.6 kg Intake: IV 150 Other: # Voids 1 2 - Labs CBC & Chem 7: 10/14/24 05:37 10/16/24 06:00 Labs: Abnormal Lab Results - Last 24 Hours (Table) 10/16/24 Range/Units 06:00 BUN 18 H (7-17) mg/dL Glucose 104 H (74-99) mg/dL
--- NOTE | 2024-10-16 14:09 | P.DS ---
Providers Date of admission: 10/13/24 14:00 Attending physician: Zoltan Winters Consults: 10/13/24 15:56 Consult Physician Routine Consulting Provider: Andres Diaz Consult Reason/Comments: chest pain, nstemi Do you want consulting provider notified?: Already Contacted Primary care physician: Stated None Hospital Course: Hospital Course: Patient is a 49-year-old female with hypertension here for evaluation of chest pressure. On admission: Vitals: Temperature 97.6, pulse rate 65, respiratory rate 18, blood pressure 176/122, O2 saturation 100% on room air Labs: WBC 14, hemoglobin 13.9, platelet count 357,000, sodium 137, potassium 3.9, bicarb 28, creatinine 0.63, calcium 9.1, magnesium 1.8. Troponins elevated at 0.074. hCG less than 2.4. Liver enzymes unremarkable.. Imaging: EKG showed sinus rhythm with a rate of 68, normal axis, no ST-T changes, good R wave progression, QTc 453 MS. Chest x-ray shows no acute process. Patient is admitted for evaluation of NSTEMI. Nitroglycerin as needed, cardiac telemetry, trending troponins, heparin drip, aspirin, Lipitor, echocardiogram ordered. Patient also reported bilateral extremity swelling and venous Doppler ultrasound was ordered. Cardiology consulted and catheterization was planned. Echocardiogram showed left ventricular ejection fraction estimated at 50% with a questionable mid inferior basal hypokinesia Cardiac catheterization showed mild CAD with normal left-sided filling pressure. Patient did not have any complications throughout hospital stay and is cleared for discharge today. She is prescribed valsartan and rosuvastatin on discharge she is advised to follow- up with technical writer and PCP on outpatient basis. Final Diagnosis: #. Elevated troponin likely demand ischemia secondary to hypertensive emergency #. Leukocytosis, reactive, resolved #. Bilateral lower extremity swelling, DVT, ruled out, improved #. Hypertension #. Hyperlipidemia Physical examination: Vital signs reviewed General: non toxic, no distress Derm: no unusual rashes/lesions, warm Head: atraumatic, normocephalic, symmetric Eyes: EOMI, anicteric sclera, pupils equal round reactive to light ENT: Nose and ears atraumatic Neck: No cervical lymphadenopathy, trachea midline, supple Mouth: no lip lesion, mucus membranes moist Cardiovascular: S1S2 reg, no murmur Lungs: CTA bilateral, no rhonchi, no rales, no accessory muscle use Abdominal: soft, nondistended, nontender to palpation, no guarding Ext: muscle strength 5 out of 5 in all 4 extremities grossly, no gross muscle atrophy, no contractures, positive dorsalis pedis pulse bilateral, trace bilateral pitting edema Neuro: CN II-XI grossly intact, no gross focal neuro deficits Psych: Alert, oriented, appropriate affect and mood I have seen and evaluated the patient today. Discussed with the resident and agree with the residents finding and plan as documented in the resident's note. Changes highlighted in blue font. Patient Condition at Discharge: Stable Plan - Discharge Summary New Discharge Prescriptions: New Valsartan [Diovan] 320 mg PO DAILY #90 tab Rosuvastatin [Crestor] 20 mg PO HS #90 tab Discharge Medication List Rosuvastatin [Crestor] 20 mg PO HS #90 tab 10/16/24 [Rx] Valsartan [Diovan] 320 mg PO DAILY #90 tab 10/16/24 [Rx] Follow up Appointment(s)/Referral(s): Andres Diaz MD [STAFF PHYSICIAN] - 1 Week Sohail Liao MD [STAFF PHYSICIAN] - 10/23/24 4:45 pm [facility] [NON-STAFF] - 1 Week Patient Instructions/Handouts: *Surgery [facility] - After Heart Catheterization - Grounds Cleaner Instructions, Chest Pain (DC), Hypertension (DC), Hyperlipidemia (DC) Activity/Diet/Wound Care/Special Instructions: . Discharge Disposition: HOME SELF-CARE
[2024-10-16 16:50] VITALS: BP 138/92; PULSE 80
[2024-10-17] MEDS ORDERED: VALSARTAN 160 MG TAB PO SCH ×2 (09:00)
--- NOTE | 2024-10-18 23:16 | CDI ---
Documentation Clarification Form Date: 10/18/2024 11:03:05 PM From: India Walker Phone: Admit Date: 10/13/2024 02:00:00 PM Patient Name: Trish Gold Visit Number: [id number] Discharge Date: 10/16/2024 04:56:00 PM ATTENTION: The Clinical Documentation Specialists (CDI) and [facility] Coding Staff appreciate your assistance in clarifying documentation. Please respond to the clarification below the line at the bottom and electronically sign. The CDI & [facility] Coding staff will review the response and follow-up if needed. Please note: Queries are made part of the Legal Health Record. If you have any questions, please contact the author of this message via ITS. Doctor/Provider: Fifi Taylor Conflicting documentation has been found in the medical record. As attending physician, please provide clarification. NSTEMI likely type I ED Note, H&P, and Progress Notes Elevated troponinlikelydemand ischemiasecondary tohypertensive emergency DCS History/Risk Factors: 49yo F, CAD w elevated troponin, HTN emergency, reactive Leukocytosis, HTN, HLD, lack on medical insurance/ noncompliance Clinical Indicators: Troponin: 10/13 0.074 10/14 0.065 BP: 10/13 176/ 122 167/111 Treatment: [facility]; She is prescribed valsartan and rosuvastatin on discharge she is advised to follow-up with quilting machine helper and PCP on outpatient basis. Please clarify which diagnosis is most appropriate: [ X ] Demand ischemia [ ] NSTEMI likely type I [ ] NSTEMI likely type II [ ] Other (please specify) [ ] Unable to determine (Template Last Revised: September 2020) MTDD
== END 2024-10-16 16:56 | disposition home or self-care (01) | DRG 192 ==
LOC: EC 11:41 → 3SCARD 14:00
PROVIDERS: ADMIT Student in an Organized Health Care Education/Training Program; ATTEND Student in an Organized Health Care Education/Training Program
PROC: B2111ZZ Fluoroscopy of Multiple Coronary Arteries using Low Osmolar Contrast (ICD-10-PCS; 2024-10-16)
PROC: 4A023N7 Measurement of Cardiac Sampling and Pressure, Left Heart, Percutaneous Approach (ICD-10-PCS; principal; 2024-10-16 09:00)
DX: I16.1 Hypertensive emergency (principal); I24.89 Other forms of acute ischemic heart disease; I25.10 Atherosclerotic heart disease of native coronary artery without angina pectoris; I10 Essential (primary) hypertension; D72.828 Other elevated white blood cell count; E78.5 Hyperlipidemia, unspecified; M79.89 Other specified soft tissue disorders; T50.906A Underdosing of unspecified drugs, medicaments and biological substances, initial encounter; Z91.120 Patient's intentional underdosing of medication regimen due to financial hardship; Z59.71 Insufficient health insurance coverage; Z82.49 Family history of ischemic heart disease and other diseases of the circulatory system; Z98.84 Bariatric surgery status; Z79.899 Other long term (current) drug therapy
CPT/HCPCS: 36415; 71046; 80048; 80053; 80061; 83036; 83735; 84443; 84484; 84702; 85025; 85610; 85730; 93005; 93306; 93458; 93970; 94760; 96365; 96366; 99285

== ENCOUNTER → 2025-01-28 | Outpatient (CLI) | payer OTHER ==
--- NOTE | 2025-01-28 11:33 | MM ---
Reason for Exam: Screening (asymptomatic). Baseline mammogram. Patient History: Menarche at age 12. First Full-Term at age 20. Patient has history of breast feeding. Last menstrual period: 01/05/2025 Risk Values: Natasha 5 year model risk: 0.7%. NCI Lifetime model risk: 7.4%. Prior Study Comparison: Patient's first Mammogram. Tissue Density: There are scattered areas of fibroglandular density. Findings: Analyzed By CAD. Scattered bilateral benign round and punctate calcifications. Asymmetric density lateral left CC view anterior to middle depth shows no persisting abnormality on 3-D images. No significant mass, suspicious microcalcification, or other discrete abnormality is seen. Overall Assessment: Benign, BI-RAD 2 Management: Screening Mammogram of both breasts in 1 year. Patient should continue monthly self-breast exams. A clinical breast exam by your physician is recommended on an annual basis. This exam should not preclude additional follow-up of suspicious palpable abnormalities. Note on Natasha scores and lifetime risk: 1. A Natasha score greater than 3% is considered moderate risk. If this is the case, consider specialist referral to assess eligibility for a risk reducing agent. 2. If overall lifetime risk for the development of breast cancer is 20% or higher, the patient may qualify for future screening with alternating mammogram and breast MRI. [facility], , 01/28/2025 11:30 AM. Electronically signed and approved by: Issac Benavides M.D. Radiologist
== END | disposition home or self-care (01) ==
LOC: RADMAMWWP 09:14
PROVIDERS: ATTEND Family Medicine
DX: Z12.31 Encounter for screening mammogram for malignant neoplasm of breast (principal); R92.323 Mammographic fibroglandular density, bilateral breasts
CPT/HCPCS: 77063; 77067